=== PATIENT | male | born 1955 ===

== ENCOUNTER 2016-08-25 21:04 | Inpatient (IN) | payer MEDICARE, OTHER ==
[2016-08-25] MEDS ORDERED: Albuterol-Ipratrop 3 mg / 0.5 (3 ml) UD IH STA ×2 (21:35→21:37)
[2016-08-25] MEDS ORDERED: Albuterol-Ipratrop 3 mg / 0.5 (3 ml) UD INH STA (21:35)
--- NOTE | 2016-08-25 21:46 | ED PDOC ---
HPI: SOB/CHF/COPD Time Seen by Provider: 08/25/16 21:28 Chief Complaint (Nursing): Shortness Of Breath Chief Complaint (Provider): Dyspnea History Per: Patient History/Exam Limitations: no limitations Onset/Duration Of Symptoms: Days (3) Current Symptoms Are (Timing): Still Present Additional Complaint(s): 3 days cough, congestion, runny nose, wheezes, dyspnea, chest pain (resolved now ). Yellow phlegm. Tried nebs and antibiotics outpt. which did not help. No leg pain. Had nausea. No abd pain, headaches, dizziness. Has had similar in the past. Past Medical History Reviewed: Nursing Documentation, Vital Signs Vital Signs: Last Vital Signs Temp 102.0 F H 08/25/16 21:22 Pulse 113 H 08/25/16 22:17 Resp 24 08/25/16 22:17 BP 166/79 H 08/25/16 22:17 Pulse Ox 95 08/25/16 22:17 - Medical History PMH: Asthma, COPD, HTN, Hypercholesterolemia, Hypothyroidism, Chronic Kidney Disease, Sleep Apnea, TIA - Family History Family History: States: Unknown Family Hx - Living Arrangements Living Arrangements: With Family - Social History Current smoker - smoking cessation education provided: No Alcohol: None Drugs: Denies - Home Medications Home Medications: Ambulatory Orders Medication Instructions Recorded Albuterol 0.083% [Albuterol 0.083% 3 ml IH BID PRN 06/21/15 Inhal Bonnie (2.5 mg/3 ml) UD] Esomeprazole Magnesium [Nexium] 40 mg PO DAILY 06/21/15 Insulin Aspart, Recombinant 20 unit SQ TID 06/21/15 [Novolog] Ipratropium [Atrovent HFA] 1 puff IH Q4 PRN 06/21/15 ALPRAZolam [Xanax] 0.5 mg PO HS PRN #0 tab 06/22/15 Enalapril Maleate [Vasotec] 20 mg PO Q12 #0 tab 06/22/15 Fluticasone/Salmeterol 250/50 1 puff IH BID #0 puff 06/22/15 [Advair Diskus 250/50] Insulin Detemir [Levemir] 15 units SC Q12 #0 vial 06/22/15 Insulin Lispro [humALOG] 20 units SC TIDAC #0 ml 06/22/15 Levothyroxine [Synthroid] 112 mcg PO DAILY@0630 #0 tab 06/22/15 Montelukast [Singulair] 10 mg PO HS #0 tab 06/22/15 Pantoprazole [Protonix EC Tab] 40 mg PO DAILY #0 ect 06/22/15 Sevelamer [Renagel] 800 mg PO TID #0 tab 06/22/15 Sevelamer Carbonate [Renvela] 800 mg PO TID 05/30/16 Albuterol/Ipratropium [Combivent 1 puff IH Q6 PRN #1 inhaler 06/02/16 Respimat] Linezolid [Zyvox] 600 mg PO Q12 #14 tab 06/02/16 Torsemide [Demadex] 20 mg PO DAILY #0 tab 06/02/16 valACYclovir [Valtrex] 500 mg PO BID #14 tab 06/02/16 - Allergies Allergies/Adverse Reactions: Allergies Allergy/AdvReac Type Severity Reaction Status Date / Time Sulfa (Sulfonamide Allergy ANAPHYLAXIS Verified 06/21/15 08:42 Antibiotics) Review of Systems ROS Statement: Except As Marked, All Systems Reviewed And Found Negative Cardiovascular: Positive for: Chest Pain Respiratory: Positive for: Cough, SOB with Exertion, Sputum Gastrointestinal: Positive for: Nausea Physical Exam - Reviewed Nursing Documentation Reviewed: Yes Vital Signs Reviewed: Yes - Physical Exam Appears: Positive for: Uncomfortable Head Exam: Positive for: ATRAUMATIC Skin: Positive for: Normal Color, Warm, DRY Eye Exam: Positive for: EOMI, Normal appearance, PERRL ENT: Positive for: Nasal Congestion. Negative for: Pharyngeal Erythema, Tonsillar Exudate Neck: Positive for: Normal, Painless ROM, Supple Cardiovascular/Chest: Positive for: Chest Non Tender, Tachycardia (mild ) Respiratory: Positive for: Decreased Breath Sounds, Wheezing Gastrointestinal/Abdominal: Positive for: Normal Exam, Soft. Negative for: Tenderness Back: Positive for: Normal Inspection. Negative for: L CVA Tenderness, R CVA Tenderness Extremity: Positive for: Normal ROM, Pedal Edema (R leg (chronic per pt.)). Negative for: Tenderness, Calf Tenderness Neurologic/Psych: Positive for: Alert, instructional specialist II-XII, Oriented. Negative for: Facial Droop - Laboratory Results Result Diagrams: 08/25/16 22:00 08/25/16 22:00 Interpretation Of Abn Labs: worsening bun/cr Interpretation Of Abnormal: INR elevation compared to old - ECG ECG: Positive for: Interpreted By Me, Viewed By Me ECG Rhythm: Positive for: Sinus Tachycardia (mild) O2 Sat by Pulse Oximetry: 91 Pulse Ox Interpretation: Abnormal - Radiology X-Ray: Interpreted by Me, Viewed By Me X-Ray Interpretation: Infiltrates (LLL) - Progress ED Course And Treament: 1040: Spoke with Dr. Crowder. Will admit ICU. Well known to him. Will put on bipap as sats occasionally going down to 85% off oxygen. 1055: Will give antibiotics for pneumonia. Spoke with Dr. Morrison. Will admit ICU. Disposition - Clinical Impression Clinical Impression: Pneumonia, COPD exacerbation, Severe sepsis - Patient ED Disposition Is Patient to be Admitted: Yes Counseled Patient/Family Regarding: Studies Performed, Diagnosis - Disposition Disposition Time: 22:56 Condition: SERIOUS - Pt Status Changed To: Hospital Disposition Of: Inpatient - Admit Certification Admit to Inpatient:: After my assessment, the patient will require hospitalization for at least two midnights. This is because of the severity of symptoms shown, intensity of services needed, and/or the medical risk in this patient being treated as an outpatient. - POA Present On Arrival: None Core Measure Indicators: Pneumonia
[2016-08-25] MEDS ORDERED: Albuterol-Ipratrop 3 mg / 0.5 (3 ml) UD ONE (22:14)
[2016-08-25 22:16] LABS: BASO % 0.5 % (0.0-2.0); EOS # 0.2 K/uL (0.0-0.7); EOS % 2.5 % (0.0-4.0); HEMATOCRIT 43.3 % (35.0-51.0); LYMPH # 0.8 K/uL (1.0-4.3); LYMPH % 8.1 % (20.0-40.0); MEAN CELL VOLUME 93.1 fl (80.0-94.0); MEAN CORPUSCULAR HEMOGLOBIN 30.4 pg (27.0-31.0); MEAN CORPUSCULAR HGB CONC 32.7 g/dL (33.0-37.0); MONO # 0.5 K/uL (0.0-0.8); MONO % 5.5 % (0.0-10.0); NEUT # 8.1 K/uL (1.8-7.0); NEUT % 83.4 % (50.0-75.0); PLATELET COUNT 240 K/uL (130-400); RED CELL DISTRIBUTION WIDTH 15.2 % (11.5-14.5); WHITE BLOOD COUNT 9.7 K/uL (4.8-10.8)
[2016-08-25] MEDS: Sodium Chloride 0.9% 500 ML IV STA ×2 (22:26→23:32)
[2016-08-25 22:28] LABS: ALB/GLOB RATIO 1.1 (1.0-2.1); BILIRUBIN,TOTAL 0.8 mg/dl (0.2-1.3); CALCIUM 9.4 mg/dL (8.4-10.2); MAGNESIUM 1.7 MG/DL (1.6-2.3); PHOSPHOROUS 3.7 mg/dl (2.5-4.5); POTASSIUM 4.2 MMOL/L (3.6-5.0); TOTAL PROTEIN 7.8 G/DL (6.3-8.2)
[2016-08-25 22:29] LABS: ABG ALLEN TEST YES; ARTERIAL BLOOD GAS HCO3 27.4 mmol/L (21-28); ARTERIAL BLOOD GAS PH 7.36 (7.35-7.45); ARTERIAL BLOOD GAS PO2 90 mm/Hg (80-100)
[2016-08-25 22:34] LABS: PARTIAL THROMBOPLASTIN TIME 44.3 SECONDS (23.3-32.5)
[2016-08-25 22:38] LABS: TROPONIN I 0.023 ng/mL (0.00-0.120)
[2016-08-25 22:51] LABS: EOSINOPHIL 2 % (0-7); NEUTROPHIL 82 % (42-75); TOTAL CELLS COUNTED 100
[2016-08-25] MEDS ORDERED: cefTRIAXone (Rocephin) 1 gm Inj IM ONE (22:52)
[2016-08-25] MEDS ORDERED: cefTRIAXone (Rocephin) 1 gm Inj IV ONE (22:52)
[2016-08-26 06:48] VITALS: BMI 44.0
[2016-08-26] MEDS: Levothyroxine 112 MCG TAB PO SCH (06:58)
[2016-08-26 07:35] LABS: RBC URINE < 1 /hpf (0-3); URINE BILIRUBIN NEGATIVE (NEGATIVE); URINE BLOOD NEGATIVE (NEGATIVE); URINE COLOR STRAW (YELLOW); URINE GLUCOSE (UA) NEG (Normal); URINE KETONE NEGATIVE (NEGATIVE); URINE LEUKOCYTE ESTERASE NEG Leu/uL (Negative); URINE PROTEIN NEGATIVE (NEGATIVE); URINE UROBILINOGEN 0.2-1.0 mg/dL (0.2-1.0); WBC URINE < 1 /hpf (0-5)
[2016-08-26 08:25] LABS: BASO % 0.2 % (0.0-2.0); HEMATOCRIT 43.8 % (35.0-51.0); LYMPH # 0.7 K/uL (1.0-4.3); LYMPH % 7.5 % (20.0-40.0); MEAN CELL VOLUME 93.3 fl (80.0-94.0); MEAN CORPUSCULAR HEMOGLOBIN 31.3 pg (27.0-31.0); MEAN CORPUSCULAR HGB CONC 33.5 g/dL (33.0-37.0); MEAN PLATELET VOLUME 8.3 fl (7.2-11.7); MONO # 0.1 K/uL (0.0-0.8); MONO % 0.6 % (0.0-10.0); NEUT # 8.6 K/uL (1.8-7.0); NEUT % 91.7 % (50.0-75.0); NRBC % 0.1 % (0.0-0.0); PLATELET COUNT 220 K/uL (130-400); RED CELL DISTRIBUTION WIDTH 15.2 % (11.5-14.5); WHITE BLOOD COUNT 9.4 K/uL (4.8-10.8)
[2016-08-26] MEDS: Insulin Lispro (humaLOG) 100 Units/ml Inj SC SCH ×3 (08:32→16:22)
[2016-08-26] MEDS: Pantoprazole 40 mg EC Tab PO SCH (08:36)
[2016-08-26] MEDS ORDERED: Insulin Detemir 100 Units/ml Inj SC SCH (09:00)
[2016-08-26 09:04] LABS: BILIRUBIN,TOTAL 0.8 mg/dl (0.2-1.3)
[2016-08-26 09:21] LABS: T4 8.33 ug/dl (5.5-11.0)
[2016-08-26 09:34] LABS: THYROID STIMULATING HORMONE 0.86 mIU/ML (0.46-4.68)
[2016-08-26] MEDS: Albuterol-Ipratrop 3 mg / 0.5 (3 ml) UD INH SCH ×4 (10:00→19:32)
--- NOTE | 2016-08-26 10:02 | RAD ---
HISTORY: Sepsis Patient COMPARISON: 06/21/2015 FINDINGS: LUNGS: No active pulmonary disease. PLEURA: No significant pleural effusion identified, no pneumothorax apparent. CARDIOVASCULAR: Mild cardiomegaly OSSEOUS STRUCTURES: No significant abnormalities. VISUALIZED UPPER ABDOMEN: Normal. OTHER FINDINGS: None. IMPRESSION: No active disease.
[2016-08-26 10:35] LABS: NEUTROPHIL 92 % (42-75); REACTIVE LYMPHOCYTES 1 % (0-0); TOTAL CELLS COUNTED 100
[2016-08-26 10:37] LABS: GIANT PLATELETS PRESENT
[2016-08-26] MEDS ORDERED: methylPREDNISolone 60 MG in Sodium Chloride 0.9% 50 ML IVPB SCH (11:15)
[2016-08-26] MEDS ORDERED: Sodium Chloride 3% for Inhalation 4 ML VIAL.NEB IH PRN (11:15)
--- NOTE | 2016-08-26 12:27 | CARD ---
APPROVED REPORT EKG Measurement Heart [id number] <Conclusion> Sinus tachycardia Nonspecific ST abnormality Abnormal ECG
[2016-08-26] MEDS: Azithromycin 500 MG in Sodium Chloride 0.9% 250 ML IVPB SCH ×3 (13:07→15:00)
[2016-08-26] MEDS ORDERED: Insulin Lispro (humaLOG) 100 Units/ml Inj SC SCH (13:30)
--- NOTE | 2016-08-26 14:26 | CP.PCM.HP ---
History of Present Illness - History of Present Illness History of Present Illness: CC: SOB. 61 y/o M, came to ER [facility] to be evaluated for SOB x 3 days [employer], Pt using abx x 2 days and nebulizer Tx at home with no relief. SOB associated to productive cough with thick yellowish sputum, wheezes, congested nose. Worsening symptom: Fever ( in ER 102.0), chills, MARIANO, Nausea, morbid obesity BMI 44.0 Aggravated factor: Chest tightness with deep breathing, intermittent cough. Pt denied: Throat pain, bloody cough, abdominal pain, CP, vomiting, diarrhea, urinary symptoms, dizziness, numbness, syncope, blurred vision, sick contact, recent travel. PMHx: COPD, Asthma, ARTUR, CKD, HTN, DMII, Hypothyroidism, High Cholesterol, Anxiety, Hx TIA. CXR shows: No active disease EKG shows: Sinus Tachycardia. Present on Admission - Present on Admission Any Indicators Present on Admission: Yes Review of Systems - Constitutional Constitutional: Chills, Fever, Sleep Apnea, Other (Overweight) - EENT Eyes: Other (negative) Ears: Other (negative) Nose/Mouth/Throat: Other (negative) - Cardiovascular Cardiovascular: Rapid Heart Rate - Respiratory Respiratory: Cough, Dyspnea, Dyspnea on Exertion, Wheezing, Change in Mucous Color, Pain with Coughing - Gastrointestinal Gastrointestinal: Other (negative) - Genitourinary Genitourinary: Other (negative) - Musculoskeletal Musculoskeletal: Other (negative) - Integumentary Integumentary: Other (negative) - Neurological Neurological: Other (negative) - Psychiatric Psychiatric: Anxiety - Endocrine Endocrine: Other (morbid obesity) Past Patient History - Infectious Disease Hx of Infectious Diseases: None - Past Medical History & Family History Past Medical History?: Yes Pertinent Family History: Unknown. - Past Social History Smoking Status: Unknown If Ever Smoked Alcohol: None Drugs: Denies Home Situation {Lives}: With Family - CARDIAC Hx Cardiac Disorders: Yes Hx Hypercholesterolemia: Yes Hx Hypertension: Yes - PULMONARY Hx Respiratory Disorders: Yes Hx Asthma: Yes Hx Chronic Obstructive Pulmonary Disease (COPD): Yes - NEUROLOGICAL Hx Neurological Disorder: Yes (TIA) - HEENT Hx HEENT Problems: No - RENAL Hx Chronic Kidney Disease: Yes - ENDOCRINE/METABOLIC Hx Endocrine Disorders: Yes Hx Diabetes Mellitus Type 2: Yes Hx Hypothyroidism: Yes - HEMATOLOGICAL/ONCOLOGICAL Hx Blood Disorders: No Hx AIDS: No Hx Human Immunodeficiency Virus (HIV): No - INTEGUMENTARY Hx Dermatological Problems: No - MUSCULOSKELETAL/RHEUMATOLOGICAL Hx Musculoskeletal Disorders: Yes Hx Falls: Yes - GASTROINTESTINAL Hx Gastrointestinal Disorders: No - GENITOURINARY/GYNECOLOGICAL Hx Genitourinary Disorders: No - PSYCHIATRIC Hx Psychophysiologic Disorder: Yes Hx Anxiety: Yes Hx Substance Use: No - SURGICAL HISTORY Hx Surgeries: Yes Hx Cataract Extraction: Yes Hx Herniorrhaphy: Yes (inguinal) - ANESTHESIA Hx Anesthesia: Yes Hx Anesthesia Reactions: No Hx Malignant Hyperthermia: No Meds Allergies/Adverse Reactions: Allergies Allergy/AdvReac Type Severity Reaction Status Date / Time Sulfa (Sulfonamide Allergy ANAPHYLAXIS Verified 06/21/15 08:42 Antibiotics) Physical Exam - Constitutional Appears: No Acute Distress - Head Exam Head Exam: NORMAL INSPECTION - Eye Exam Eye Exam: PERRL - ENT Exam ENT Exam: Mucous Membranes Moist - Neck Exam Neck exam: Positive for: Normal Inspection - Respiratory Exam Respiratory Exam: Decreased Breath Sounds (at bases), Wheezes - Cardiovascular Exam Cardiovascular Exam: REGULAR RHYTHM - GI/Abdominal Exam GI & Abdominal Exam: Normal Bowel Sounds, Soft - Extremities Exam Extremities exam: Positive for: pedal edema (trace) Additional comments: Hands edema - Back Exam Back exam: NORMAL INSPECTION - Neurological Exam Neurological exam: Alert, Oriented x3 Additional comments: No gross focal motor sensory deficit - Psychiatric Exam Psychiatric exam: Anxious - Skin Skin Exam: Warm Results - Vital Signs Recent Vital Signs: Last Vital Signs Temp 97.9 F 08/26/16 08:00 Pulse 103 H 08/26/16 11:57 Resp 20 08/26/16 08:00 BP 157/81 H 08/26/16 08:00 Pulse Ox 96 08/26/16 08:00 reviewed Gerald - Labs Result Diagrams: 08/26/16 07:50 08/28/16 14:22 Labs: Laboratory Results - last 24 hr 08/26/16 08/26/16 08/26/16 05:09 07:50 11:39 WBC 9.4 RBC 4.70 Hgb 14.7 Hct 43.8 MCV 93.3 MCH 31.3 H MCHC 33.5 RDW 15.2 H Plt Count 220 MPV 8.3 Neut % (Auto) 91.7 H Lymph % (Auto) 7.5 L [place] % (Auto) 0.6 Eos % (Auto) 0.0 Baso % (Auto) 0.2 Neut # 8.6 H Lymph # 0.7 L [place] # 0.1 Eos # 0.0 Baso # 0.0 Neutrophils % (Manual) 92 H Lymphocytes % (Manual) 6 L Reactive Lymphs % 1 H Monocytes % (Manual) 1 Platelet Estimate Normal Giant Platelets Present Anisocytosis (manual) Slight Sodium 138 Potassium 5.0 Chloride 101 Carbon Dioxide 22 Anion Gap 20 BUN 41 H Creatinine 3.1 H Est GFR ( Amer) 25 Est GFR (Non-Af Amer) 21 POC Glucose (mg/dL) 255 H 347 H Random Glucose 315 H Calcium 9.0 Total Bilirubin 0.8 AST 52 ALT 38 Alkaline Phosphatase 58 Total Protein 8.0 Albumin 4.1 Globulin 3.9 Albumin/Globulin Ratio 1.0 Triglycerides 101 D Cholesterol 159 LDL Cholesterol Direct 81 HDL Cholesterol 46 Thyroxine (T4) 8.33 Total T3 0.559 L TSH 3rd Generation 0.86 reviewed J.P. - EKG Data EKG comments: reviewed J.P. - Imaging and Cardiology Chest x-ray Status: Report reviewed by me (J.P.) Assessment & Plan (1) COPD exacerbation Status: Acute (2) ARTUR (obstructive sleep apnea) Status: Chronic Priority: High (3) Diabetes mellitus Status: Chronic Priority: High Comment: Hyperglycemia. (4) Hypertension Status: Chronic Priority: Medium (5) Hypothyroidism Status: Chronic Priority: Medium (6) Anxiety Status: Chronic Priority: Medium - Assessment and Plan (Free Text) Plan: Rocephin, Zithromax, Duoneb, Solumedrol and rest of Tx. F/U Blood C-S, U C-S. - Date & Time Date: 08/26/16 Time: 11:30
[2016-08-26] MEDS: Insulin Detemir 100 Units/ml Inj SC SCH (21:45)
[2016-08-27] MEDS: Levothyroxine 112 MCG TAB PO SCH (06:17)
[2016-08-27] MEDS: Insulin Lispro (humaLOG) 100 Units/ml Inj SC SCH ×3 (08:06→16:21)
[2016-08-27] MEDS: Insulin Detemir 100 Units/ml Inj SC SCH ×2 (08:07→21:13)
[2016-08-27] MEDS: Pantoprazole 40 mg EC Tab PO SCH (08:09)
[2016-08-27] MEDS: Azithromycin 500 MG in Sodium Chloride 0.9% 250 ML IVPB SCH (08:13)
[2016-08-27] MEDS: Albuterol-Ipratrop 3 mg / 0.5 (3 ml) UD INH SCH ×4 (08:32→19:25)
[2016-08-27] MEDS: methylPREDNISolone 20 MG in Sodium Chloride 0.9% 50 ML IVPB SCH ×2 (09:46→16:18)
--- NOTE | 2016-08-27 14:28 | PQF GENQUE ---
Dr. Crowder, Sepsis ruled in or Sepsis ruled out? diagnosis is dropped Admission to Inpatient: Admitting Diagnosis: Severe Sepsis, COPD Exacerbation, Pneumonia ER record: V/S: Temp: 102.0 Pulse:113 Resp: 24 ECG Rhythm: Sinus Tachycardia (mild) 10:40 Will put on bipap as sats occasionally going down to 85% off O2. Speaking in full sentences. Clinical Impression: Pneumonia, COPD exacerbation, Severe sepsis H and P: SOB associated to productive cough with thick yellowish sputum, wheezes , congested nose. Worsening symptom: Fever ( in ER 102.0), chills, MARIANO, Nausea, morbid obesity BMI 44.0 (1) COPD exacerbation Status: Acute (2) ARTUR (obstructive sleep apnea) Status: Chronic Priority: High (3) Diabetes mellitus Status: Chronic Priority: High Comment: Hyperglycemia. (4) Hypertension Status: Chronic Priority: Medium (5) Hypothyroidism Status: Chronic Priority: Medium (6) Anxiety Status: Chronic Priority: Medium CXR:negative WBC:9.7->9.4 ABG lactate:0.8 This form is a permanent part of the medical record Clarification of your documentation is requested to better reflect the severity of illness and intensity of treatment of your patient. Indicators present [] Specify: [] [] Specify: [] [] Specify: [] [] Specify: [] Location in the medical record that reflects the above clinical findings: [] Treatment Provided: [] PHYSICIAN'S RESPONSE Based on your medical judgment of the clinical indicators outlined above please clarify the following: [] Practitioner response [] If unable to determine, please check the box, sign and date. Present On Admission (POA) Indicator: [] Present at the time of admission [] Not present at the time of admission [] Clinically Undetermined In responding to this query, please exercise your independent professional judgment. The fact that a question is asked does not imply that any particular answer is desired or expected. Thank you for your clarification on this documentation. If you have any questions please call. * Thank you, Jessi Delgadillo RN BSN ext. #[phone] MTDD
--- NOTE | 2016-08-27 14:36 | CP.PCM.PN ---
Subjective - Date & Time of Evaluation Date of Evaluation: 08/27/16 Time of Evaluation: 11:20 - Subjective Subjective: F/U COPD Exacerbation Cough, chest congestion improved.. Objective - Vital Signs/Intake and Output Vital Signs (last 24 hours): Temp Pulse Resp BP Pulse Ox 98.8 F 101 H 18 166/77 H 99 08/27/16 12:12 08/27/16 12:12 08/27/16 12:12 08/27/16 12:12 08/27/16 12:12 - Medications Medications: Current Medications Albuterol/Ipratropium (Duoneb 3 Mg/0.5 Mg (3 Ml) Ud) 3 ml INH RQID [facility] Last Admin: 08/27/16 11:17 Dose: 3 ml Alprazolam (Xanax) 0.5 mg PO HS PRN PRN Reason: Insomnia Stop: 09/02/16 06:14 Enalapril Maleate (Vasotec) 20 mg PO Q12 [facility] Last Admin: 08/27/16 08:10 Dose: 20 mg Furosemide (Lasix) 40 mg IV DAILY [facility] Last Admin: 08/27/16 08:10 Dose: 40 mg Ceftriaxone Sodium 1 gm/ (Sodium Chloride) 100 mls @ 100 mls/hr IVPB DAILY [facility] Last Admin: 08/27/16 08:12 Dose: 100 mls/hr Azithromycin 500 mg/ Sodium (Chloride) 250 mls @ 250 mls/hr IVPB DAILY [facility] Last Admin: 08/27/16 08:13 Dose: 250 mls/hr Methylprednisolone 20 mg/ (Sodium Chloride) 50.32 mls @ 100 mls/hr IVPB Q8 [facility] Last Admin: 08/27/16 09:46 Dose: 100 mls/hr Insulin Detemir (Levemir) 18 units SC Q12 [facility] Last Admin: 08/27/16 08:07 Dose: 18 units Insulin Human Lispro (Humalog) 28 units SC TIDAC [facility] Levothyroxine Sodium (Synthroid) 112 mcg PO DAILY@0630 [facility] Last Admin: 08/27/16 06:17 Dose: 112 mcg Montelukast Sodium (Singulair) 10 mg PO HS [facility] Last Admin: 08/26/16 21:48 Dose: 10 mg Pantoprazole Sodium (Protonix Ec Tab) 40 mg PO DAILY [facility] Last Admin: 08/27/16 08:09 Dose: 40 mg Sevelamer HCl (Renagel) 800 mg PO TID [facility] Last Admin: 08/27/16 12:31 Dose: 800 mg Torsemide (Demadex) 20 mg PO DAILY [facility] Last Admin: 08/27/16 08:10 Dose: 20 mg - Labs Labs: 08/26/16 07:50 08/26/16 07:50 PT 22.1 SECONDS (9.6-11.2) H 08/25/16 22:00 INR 2.13 (0.92-1.08) H 08/25/16 22:00 APTT 44.3 SECONDS (23.3-32.5) H 08/25/16 22:00 - Constitutional Appears: No Acute Distress - Head Exam Head Exam: NORMAL INSPECTION - Eye Exam Eye Exam: PERRL - ENT Exam ENT Exam: Normal Oropharynx - Neck Exam Neck Exam: Normal Inspection - Respiratory Exam Respiratory Exam: Decreased Breath Sounds (at bases), Wheezes - Cardiovascular Exam Cardiovascular Exam: REGULAR RHYTHM - GI/Abdominal Exam GI & Abdominal Exam: Soft, Normal Bowel Sounds - Extremities Exam Extremities Exam: Pedal Edema (trace) Additional comments: Hands edema - Back Exam Back Exam: NORMAL INSPECTION - Neurological Exam Neurological Exam: Alert, Oriented x3 Additional comments: No gross focal motor sensory deficit. - Psychiatric Exam Psychiatric exam: Anxious - Skin Skin Exam: Warm Assessment and Plan (1) COPD exacerbation Status: Acute (2) ARTUR (obstructive sleep apnea) Status: Chronic (3) Diabetes mellitus Status: Chronic (4) Hypertension Status: Chronic (5) Hypothyroidism Status: Chronic (6) Anxiety Status: Chronic - Assessment and Plan (Free Text) Plan: BS and BP elevated, increase Novolog, Levemir, Vasotec.
[2016-08-28] MEDS: methylPREDNISolone 20 MG in Sodium Chloride 0.9% 50 ML IVPB SCH ×4 (00:58→17:47)
[2016-08-28] MEDS: Levothyroxine 112 MCG TAB PO SCH (06:07)
[2016-08-28] MEDS: Albuterol-Ipratrop 3 mg / 0.5 (3 ml) UD INH SCH ×4 (08:13→19:55)
[2016-08-28] MEDS: Insulin Lispro (humaLOG) 100 Units/ml Inj SC SCH ×3 (08:51→17:45)
[2016-08-28] MEDS: Insulin Detemir 100 Units/ml Inj SC SCH ×2 (08:52→21:24)
[2016-08-28] MEDS: Pantoprazole 40 mg EC Tab PO SCH (08:59)
[2016-08-28] MEDS: Azithromycin 500 MG in Sodium Chloride 0.9% 250 ML IVPB SCH (10:08)
--- NOTE | 2016-08-28 14:30 | CP.PCM.PN ---
Subjective - Date & Time of Evaluation Date of Evaluation: 08/28/16 Time of Evaluation: 12:10 - Subjective Subjective: F/U COPD Exacerbation. Pt still having cough, less chest congestion Objective - Vital Signs/Intake and Output Vital Signs (last 24 hours): Temp Pulse Resp BP Pulse Ox 97.5 F L 98 H 20 157/78 H 95 08/28/16 12:13 08/28/16 12:13 08/28/16 12:13 08/28/16 12:13 08/28/16 12:13 - Medications Medications: Current Medications Albuterol/Ipratropium (Duoneb 3 Mg/0.5 Mg (3 Ml) Ud) 3 ml INH RQID [facility] Last Admin: 08/28/16 11:25 Dose: 3 ml Alprazolam (Xanax) 0.5 mg PO HS PRN PRN Reason: Insomnia Stop: 09/02/16 06:14 Last Admin: 08/28/16 00:56 Dose: 0.5 mg Enalapril Maleate (Vasotec) 20 mg PO Q12 [facility] Last Admin: 08/28/16 09:00 Dose: 20 mg Furosemide (Lasix) 40 mg IV DAILY [facility] Last Admin: 08/28/16 08:55 Dose: 40 mg Ceftriaxone Sodium 1 gm/ (Sodium Chloride) 100 mls @ 100 mls/hr IVPB DAILY [facility] Last Admin: 08/28/16 09:05 Dose: 100 mls/hr Azithromycin 500 mg/ Sodium (Chloride) 250 mls @ 250 mls/hr IVPB DAILY [facility] Last Admin: 08/28/16 10:08 Dose: 250 mls/hr Methylprednisolone 20 mg/ (Sodium Chloride) 50.32 mls @ 100 mls/hr IVPB Q8 [facility] Last Admin: 08/28/16 09:00 Dose: Not Given Insulin Detemir (Levemir) 18 units SC Q12 [facility] Last Admin: 08/28/16 08:52 Dose: 18 units Insulin Human Lispro (Humalog) 28 units SC TIDAC [facility] Last Admin: 08/28/16 12:08 Dose: 28 units Levothyroxine Sodium (Synthroid) 112 mcg PO DAILY@0630 [facility] Last Admin: 08/28/16 06:07 Dose: 112 mcg Montelukast Sodium (Singulair) 10 mg PO HS [facility] Last Admin: 08/27/16 21:08 Dose: 10 mg Pantoprazole Sodium (Protonix Ec Tab) 40 mg PO DAILY [facility] Last Admin: 08/28/16 08:59 Dose: 40 mg Sevelamer HCl (Renagel) 800 mg PO TID [facility] Last Admin: 08/28/16 09:00 Dose: 800 mg Torsemide (Demadex) 20 mg PO DAILY [facility] Last Admin: 08/28/16 08:50 Dose: 20 mg - Labs Labs: 08/26/16 07:50 08/26/16 07:50 PT 22.1 SECONDS (9.6-11.2) H 08/25/16 22:00 INR 2.13 (0.92-1.08) H 08/25/16 22:00 APTT 44.3 SECONDS (23.3-32.5) H 08/25/16 22:00 - Constitutional Appears: No Acute Distress - Head Exam Head Exam: NORMAL INSPECTION - Eye Exam Eye Exam: PERRL - ENT Exam ENT Exam: Normal Oropharynx - Neck Exam Neck Exam: Normal Inspection - Respiratory Exam Respiratory Exam: Decreased Breath Sounds (at bases), Rhonchi (scattered) - Cardiovascular Exam Cardiovascular Exam: REGULAR RHYTHM - GI/Abdominal Exam GI & Abdominal Exam: Soft, Normal Bowel Sounds - Extremities Exam Extremities Exam: Pedal Edema (trace) Additional comments: less hands edema. - Back Exam Back Exam: NORMAL INSPECTION - Neurological Exam Neurological Exam: Alert, Oriented x3 Additional comments: No gross focal motor sensory deficit. - Psychiatric Exam Psychiatric exam: Anxious - Skin Skin Exam: Warm Assessment and Plan (1) COPD exacerbation Status: Acute (2) ARTUR (obstructive sleep apnea) Status: Chronic (3) Diabetes mellitus Status: Chronic (4) Hypertension Status: Chronic (5) Hypothyroidism Status: Chronic (6) Anxiety Status: Chronic - Assessment and Plan (Free Text) Plan: BS elevated 2nd to Steroids, Pt refused previous doses, discussed with him to continue Solumedrol and rest of Tx.
[2016-08-28 14:52] LABS: CALCIUM 8.6 mg/dL (8.4-10.2); POTASSIUM 4.4 MMOL/L (3.6-5.0)
[2016-08-28 14:53] LABS: ALB/GLOB RATIO 1.1 (1.0-2.1); BILIRUBIN,TOTAL 0.3 mg/dl (0.2-1.3)
[2016-08-29] MEDS: methylPREDNISolone 20 MG in Sodium Chloride 0.9% 50 ML IVPB SCH ×3 (00:25→17:01)
[2016-08-29] MEDS: Levothyroxine 112 MCG TAB PO SCH (06:01)
[2016-08-29] MEDS: Albuterol-Ipratrop 3 mg / 0.5 (3 ml) UD INH SCH ×4 (08:00→19:29)
[2016-08-29] MEDS: Insulin Lispro (humaLOG) 100 Units/ml Inj SC SCH ×3 (08:25→16:59)
[2016-08-29] MEDS: Insulin Detemir 100 Units/ml Inj SC SCH ×2 (08:29→21:02)
[2016-08-29] MEDS: Pantoprazole 40 mg EC Tab PO SCH (08:31)
[2016-08-29] MEDS: Azithromycin 500 MG in Sodium Chloride 0.9% 250 ML IVPB SCH (10:12)
--- NOTE | 2016-08-29 14:28 | CP.PCM.PN ---
Subjective - Date & Time of Evaluation Date of Evaluation: 08/29/16 Time of Evaluation: 13:00 - Subjective Subjective: F/U COPD Exacerbation Cough , chest congestion Objective - Vital Signs/Intake and Output Vital Signs (last 24 hours): Temp Pulse Resp BP Pulse Ox 98.4 F 96 H 20 159/83 H 95 08/29/16 12:24 08/29/16 12:24 08/29/16 12:24 08/29/16 12:24 08/29/16 12:24 - Medications Medications: Current Medications Albuterol/Ipratropium (Duoneb 3 Mg/0.5 Mg (3 Ml) Ud) 3 ml INH RQID [facility] Last Admin: 08/29/16 11:33 Dose: 3 ml Clonidine HCl (Catapres) 0.1 mg PO DAILY [facility] Enalapril Maleate (Vasotec) 20 mg PO Q12 [facility] Last Admin: 08/29/16 08:32 Dose: 20 mg Furosemide (Lasix) 40 mg IV DAILY [facility] Last Admin: 08/29/16 08:26 Dose: 40 mg Ceftriaxone Sodium 1 gm/ (Sodium Chloride) 100 mls @ 100 mls/hr IVPB DAILY [facility] Last Admin: 08/29/16 08:19 Dose: 100 mls/hr Azithromycin 500 mg/ Sodium (Chloride) 250 mls @ 250 mls/hr IVPB DAILY [facility] Last Admin: 08/29/16 10:12 Dose: 250 mls/hr Methylprednisolone 20 mg/ (Sodium Chloride) 50.32 mls @ 100 mls/hr IVPB Q8 [facility] Last Admin: 08/29/16 09:38 Dose: 100 mls/hr Insulin Detemir (Levemir) 18 units SC Q12 [facility] Last Admin: 08/29/16 08:29 Dose: 18 units Insulin Human Lispro (Humalog) 28 units SC TIDAC [facility] Last Admin: 08/29/16 12:47 Dose: 28 units Levothyroxine Sodium (Synthroid) 112 mcg PO DAILY@0630 [facility] Last Admin: 08/29/16 06:01 Dose: 112 mcg Montelukast Sodium (Singulair) 10 mg PO HS [facility] Last Admin: 08/28/16 21:23 Dose: 10 mg Pantoprazole Sodium (Protonix Ec Tab) 40 mg PO DAILY [facility] Last Admin: 08/29/16 08:31 Dose: 40 mg Sevelamer HCl (Renagel) 800 mg PO TID [facility] Last Admin: 08/29/16 12:49 Dose: 800 mg Torsemide (Demadex) 20 mg PO DAILY [facility] Last Admin: 08/29/16 08:23 Dose: 20 mg - Labs Labs: 08/26/16 07:50 08/28/16 14:22 PT 22.1 SECONDS (9.6-11.2) H 08/25/16 22:00 INR 2.13 (0.92-1.08) H 08/25/16 22:00 APTT 44.3 SECONDS (23.3-32.5) H 08/25/16 22:00 - Constitutional Appears: No Acute Distress - Head Exam Head Exam: NORMAL INSPECTION - Eye Exam Eye Exam: PERRL - ENT Exam ENT Exam: Normal Oropharynx - Neck Exam Neck Exam: Normal Inspection - Respiratory Exam Respiratory Exam: Decreased Breath Sounds (at bases), Rhonchi - Cardiovascular Exam Cardiovascular Exam: REGULAR RHYTHM - GI/Abdominal Exam GI & Abdominal Exam: Soft, Normal Bowel Sounds - Extremities Exam Extremities Exam: Pedal Edema (trace) - Back Exam Back Exam: NORMAL INSPECTION - Neurological Exam Neurological Exam: Alert, Oriented x3 Additional comments: No gross focal motor sensory deficit. - Psychiatric Exam Psychiatric exam: Anxious - Skin Skin Exam: Warm Assessment and Plan (1) COPD exacerbation Status: Acute (2) ARTUR (obstructive sleep apnea) Status: Chronic (3) Diabetes mellitus Status: Chronic (4) Hypertension Status: Chronic (5) Hypothyroidism Status: Chronic (6) Anxiety Status: Chronic - Assessment and Plan (Free Text) Plan: BS elevated 2nd to steroids , still bronchospasm, continue steroids and rest of treatment, monitir bood sugar.
[2016-08-29] MEDS ORDERED: Insulin Regular 100 units/ml SC STA (22:39)
[2016-08-30] MEDS: methylPREDNISolone 20 MG in Sodium Chloride 0.9% 50 ML IVPB SCH ×3 (00:18→09:07)
[2016-08-30] MEDS: Levothyroxine 112 MCG TAB PO SCH (06:18)
[2016-08-30] MEDS: Albuterol-Ipratrop 3 mg / 0.5 (3 ml) UD INH SCH ×2 (07:42→11:01)
[2016-08-30] MEDS: Insulin Lispro (humaLOG) 100 Units/ml Inj SC SCH ×2 (07:54→11:30)
[2016-08-30] MEDS: Pantoprazole 40 mg EC Tab PO SCH (08:59)
[2016-08-30] MEDS ORDERED: Insulin Detemir 100 Units/ml Inj SC SCH (09:00)
[2016-08-30] MEDS: Azithromycin 500 MG in Sodium Chloride 0.9% 250 ML IVPB SCH (09:07)
--- NOTE | 2016-08-30 13:41 | CP.PCM.PCO ---
Assessment and Plan - Assessment and Plan (Free Text) Plan: Patient seen and examined. Vital signs stable Discharged home, pt to follow up with Dr. Crowder for follow up sleep studies for bpap machine. Patient refusing home steroid taper. Will follow up with Dr Crowder outpatient.
[2016-08-30 14:34] VITALS: BP 147/73; PULSE 94; RESP 20; TEMP 98.2; O2SAT 93
--- NOTE | 2016-08-30 14:43 | CP.PCM.PN ---
Subjective - Date & Time of Evaluation Date of Evaluation: 08/30/16 Time of Evaluation: 11:30 - Subjective Subjective: F/U COPD Exacerbation. Pt breathing well, no SOB, no cough, BS 84. Objective - Vital Signs/Intake and Output Vital Signs (last 24 hours): Temp Pulse Resp BP Pulse Ox 98.2 F 94 H 20 147/73 93 L 08/30/16 13:00 08/30/16 13:00 08/30/16 13:00 08/30/16 13:00 08/30/16 13:00 - Medications Medications: Current Medications Albuterol/Ipratropium (Duoneb 3 Mg/0.5 Mg (3 Ml) Ud) 3 ml INH RQID [facility] Last Admin: 08/30/16 11:01 Dose: 3 ml Clonidine HCl (Catapres) 0.1 mg PO DAILY [facility] Last Admin: 08/30/16 09:01 Dose: 0.1 mg Enalapril Maleate (Vasotec) 20 mg PO Q12 [facility] Last Admin: 08/30/16 08:59 Dose: 20 mg Furosemide (Lasix) 40 mg IV DAILY [facility] Last Admin: 08/30/16 09:00 Dose: 40 mg Ceftriaxone Sodium 1 gm/ (Sodium Chloride) 100 mls @ 100 mls/hr IVPB DAILY [facility] Last Admin: 08/30/16 09:12 Dose: 100 mls/hr Azithromycin 500 mg/ Sodium (Chloride) 250 mls @ 250 mls/hr IVPB DAILY [facility] Last Admin: 08/30/16 09:07 Dose: 250 mls/hr Methylprednisolone 20 mg/ (Sodium Chloride) 50.32 mls @ 100 mls/hr IVPB Q8 [facility] Last Admin: 08/30/16 09:07 Dose: Not Given Insulin Detemir (Levemir) 22 units SC Q12 [facility] Last Admin: 08/30/16 08:59 Dose: 22 units Insulin Human Lispro (Humalog) 28 units SC TIDAC [facility] Last Admin: 08/30/16 11:30 Dose: Not Given Levothyroxine Sodium (Synthroid) 112 mcg PO DAILY@0630 [facility] Last Admin: 08/30/16 06:18 Dose: 112 mcg Montelukast Sodium (Singulair) 10 mg PO HS [facility] Last Admin: 08/29/16 21:01 Dose: 10 mg Pantoprazole Sodium (Protonix Ec Tab) 40 mg PO DAILY [facility] Last Admin: 08/30/16 08:59 Dose: 40 mg Sevelamer HCl (Renagel) 800 mg PO TID [facility] Last Admin: 08/30/16 14:42 Dose: 800 mg Torsemide (Demadex) 20 mg PO DAILY [facility] Last Admin: 08/30/16 09:01 Dose: 20 mg - Labs Labs: 08/26/16 07:50 08/28/16 14:22 PT 22.1 SECONDS (9.6-11.2) H 08/25/16 22:00 INR 2.13 (0.92-1.08) H 08/25/16 22:00 APTT 44.3 SECONDS (23.3-32.5) H 08/25/16 22:00 - Constitutional Appears: No Acute Distress - Head Exam Head Exam: NORMAL INSPECTION - Eye Exam Eye Exam: PERRL - ENT Exam ENT Exam: Normal Oropharynx - Neck Exam Neck Exam: Normal Inspection - Respiratory Exam Respiratory Exam: Decreased Breath Sounds (at bases), Rhonchi (scattered) - Cardiovascular Exam Cardiovascular Exam: REGULAR RHYTHM - GI/Abdominal Exam GI & Abdominal Exam: Soft, Normal Bowel Sounds - Extremities Exam Extremities Exam: Pedal Edema (trace) - Back Exam Back Exam: NORMAL INSPECTION - Neurological Exam Neurological Exam: Alert, Oriented x3 Additional comments: No gross focal motor sensory deficit. - Psychiatric Exam Psychiatric exam: Anxious - Skin Skin Exam: Warm Assessment and Plan (1) COPD exacerbation Assessment & Plan: Improved Status: Acute (2) ARTUR (obstructive sleep apnea) Status: Chronic (3) Diabetes mellitus Assessment & Plan: Improved. Status: Chronic (4) Hypertension Status: Chronic (5) Hypothyroidism Status: Chronic (6) Anxiety Status: Chronic - Assessment and Plan (Free Text) Plan: Pt doesn't want f/u Steroid po, continue with home medication, monitor BS. Improved and stable to be discharged, see instruction medication list, f/u with PMD in a week.
--- NOTE | 2016-09-09 10:24 | CP.PCM.DIS ---
Provider - Provider Date of Admission: 08/25/16 22:58 Attending physician: Shakir Roche MD Time Spent in preparation of Discharge (in minutes): 25 Diagnosis - Discharge Diagnosis (1) Diabetes mellitus Status: Chronic Priority: High (2) Hypothyroidism Status: Chronic Priority: Medium (3) Hypertension Status: Chronic Priority: Medium (4) ARTUR (obstructive sleep apnea) Status: Chronic Priority: High (5) Anxiety Status: Chronic Priority: Medium (6) COPD exacerbation Status: Acute Hospital Course - Lab Results Lab Results: Micro Results 08/27/16 12:45 Sputum Gram Stain - Final 08/27/16 12:45 Sputum Sputum Culture - Final NORMAL SAPROPHYTIC CONSTANZA Most Recent Lab Values WBC 9.4 K/uL (4.8-10.8) 08/26/16 07:50 RBC 4.70 Mil/uL (4.40-5.90) 08/26/16 07:50 Hgb 14.7 g/dL (12.0-18.0) 08/26/16 07:50 Hct 43.8 % (35.0-51.0) 08/26/16 07:50 MCV 93.3 fl (80.0-94.0) 08/26/16 07:50 MCH 31.3 pg (27.0-31.0) H 08/26/16 07:50 MCHC 33.5 g/dL (33.0-37.0) 08/26/16 07:50 RDW 15.2 % (11.5-14.5) H 08/26/16 07:50 Plt Count 220 K/uL (130-400) 08/26/16 07:50 MPV 8.3 fl (7.2-11.7) 08/26/16 07:50 Neut % (Auto) 91.7 % (50.0-75.0) H 08/26/16 07:50 Lymph % (Auto) 7.5 % (20.0-40.0) L 08/26/16 07:50 [place] % (Auto) 0.6 % (0.0-10.0) 08/26/16 07:50 Eos % (Auto) 0.0 % (0.0-4.0) 08/26/16 07:50 Baso % (Auto) 0.2 % (0.0-2.0) 08/26/16 07:50 Neut # 8.6 K/uL (1.8-7.0) H 08/26/16 07:50 Lymph # 0.7 K/uL (1.0-4.3) L 08/26/16 07:50 [place] # 0.1 K/uL (0.0-0.8) 08/26/16 07:50 Eos # 0.0 K/uL (0.0-0.7) 08/26/16 07:50 Baso # 0.0 K/uL (0.0-0.2) 08/26/16 07:50 Neutrophils % (Manual) 92 % (42-75) H 08/26/16 07:50 Band Neutrophils % 2 % (0-2) 08/25/16 22:00 Lymphocytes % (Manual) 6 % (20-50) L 08/26/16 07:50 Reactive Lymphs % 1 % (0-0) H 08/26/16 07:50 Monocytes % (Manual) 1 % (0-10) 08/26/16 07:50 Eosinophils % (Manual) 2 % (0-7) 08/25/16 22:00 Platelet Estimate Normal (NORMAL) 08/26/16 07:50 Giant Platelets Present 08/26/16 07:50 Anisocytosis (manual) Slight 08/26/16 07:50 Macrocytosis (manual) Slight 08/25/16 22:00 PT 22.1 SECONDS (9.6-11.2) H 08/25/16 22:00 INR 2.13 (0.92-1.08) H 08/25/16 22:00 APTT 44.3 SECONDS (23.3-32.5) H 08/25/16 22:00 pCO2 53 mm/Hg (35-45) H 08/25/16 22:20 pO2 90 mm/Hg (80-100) 08/25/16 22:20 HCO3 27.4 mmol/L (21-28) 08/25/16 22:20 ABG pH 7.36 (7.35-7.45) 08/25/16 22:20 ABG Total CO2 31.5 mmol/L (22-28) H 08/25/16 22:20 ABG O2 Saturation 99.5 % (95-98) H 08/25/16 22:20 ABG Base Excess 3.2 mmol/L (-2.0-3.0) H 08/25/16 22:20 Ian Test Yes 08/25/16 22:20 ABG Potassium 4.3 mmol/L (3.6-5.2) 08/25/16 22:20 A-a O2 Difference 557.0 mm/Hg 08/25/16 22:20 Sodium 138.0 mmol/L (132-148) 08/25/16 22:20 Chloride 106.0 mmol/L (98-107) 08/25/16 22:20 Glucose 182 mg/dL (75-110) H 08/25/16 22:20 Lactate 0.8 mmol/L (0.7-2.1) 08/25/16 22:20 FiO2 100.0 % 08/25/16 22:20 Sodium 147 mmol/l (132-148) 08/28/16 14:22 Potassium 4.4 MMOL/L (3.6-5.0) 08/28/16 14:22 Chloride 104 mmol/L (98-107) 08/28/16 14:22 Carbon Dioxide 25 mmol/L (22-30) 08/28/16 14:22 Anion Gap 21 (10-20) H 08/28/16 14:22 BUN 72 mg/dl (9-20) H 08/28/16 14:22 Creatinine 3.0 mg/dL (0.8-1.5) H 08/28/16 14:22 Est GFR ( Amer) 26 08/28/16 14:22 Est GFR (Non-Af Amer) 22 08/28/16 14:22 POC Glucose (mg/dL) 84 mg/dL (65-110) 08/30/16 13:07 Random Glucose 247 mg/dL (75-110) H 08/28/16 14:22 Hemoglobin A1c 6.2 % (4.2-6.5) 08/26/16 07:50 Calcium 8.6 mg/dL (8.4-10.2) 08/28/16 14:22 Phosphorus 3.7 mg/dl (2.5-4.5) 08/25/16 22:00 Magnesium 1.7 MG/DL (1.6-2.3) 08/25/16 22:00 Total Bilirubin 0.3 mg/dl (0.2-1.3) 08/28/16 14:22 AST 81 U/L (17-59) H D 08/28/16 14:22 ALT 73 U/L (21-72) H D 08/28/16 14:22 Alkaline Phosphatase 69 U/L (38-126) 08/28/16 14:22 Troponin I 0.0230 ng/mL (0.00-0.120) 08/25/16 22:00 NT-Pro-B Natriuret Pep 579 pg/ml (0-900) 08/25/16 22:00 Total Protein 7.0 G/DL (6.3-8.2) 08/28/16 14:22 Albumin 3.7 g/dL (3.5-5.0) 08/28/16 14:22 Globulin 3.4 gm/dL (2.2-3.9) 08/28/16 14:22 Albumin/Globulin Ratio 1.1 (1.0-2.1) 08/28/16 14:22 Triglycerides 101 mg/DL (0-149) D 08/26/16 07:50 Cholesterol 159 mg/dL (0-199) 08/26/16 07:50 LDL Cholesterol Direct 81 mg/dL (0-129) 08/26/16 07:50 HDL Cholesterol 46 MG/DL (30-70) 08/26/16 07:50 Thyroxine (T4) 8.33 ug/dl (5.5-11.0) 08/26/16 07:50 Total T3 0.559 nmol/L (1.49-2.60) L 08/26/16 07:50 TSH 3rd Generation 0.86 mIU/ML (0.46-4.68) 08/26/16 07:50 Arterial Blood Potassium 4.3 mmol/L (3.6-5.2) 08/25/16 22:20 Urine Color Straw (YELLOW) 08/25/16 07:00 Urine Clarity Clear (Clear) 08/25/16 07:00 Urine pH 6.0 (5.0-8.0) 08/25/16 07:00 Ur Specific [place] 1.006 (1.003-1.030) 08/25/16 07:00 Urine Protein Negative mg/dL (NEGATIVE) 08/25/16 07:00 Urine Glucose (UA) Neg mg/dL (Normal) 08/25/16 07:00 Urine Ketones Negative mg/dL (NEGATIVE) 08/25/16 07:00 Urine Blood Negative (NEGATIVE) 08/25/16 07:00 Urine Nitrate Negative (NEGATIVE) 08/25/16 07:00 Urine Bilirubin Negative (NEGATIVE) 08/25/16 07:00 Urine Urobilinogen 0.2-1.0 mg/dL (0.2-1.0) 08/25/16 07:00 Ur Leukocyte Esterase Neg Fareed/uL (Negative) 08/25/16 07:00 Urine RBC (Auto) < 1 /hpf (0-3) 08/25/16 07:00 Urine Microscopic WBC < 1 /hpf (0-5) 08/25/16 07:00 Hyaline Casts 0-2 /hpf (0-2) 08/25/16 07:00 Influenza Typ A,B (EIA) Negative for flu a/b (NEGATIVE) 08/25/16 22:00 - Date & Time of H&P Date of H&P: 08/26/16 Time of H&P: 11:30 Discharge Exam - Head Exam Head Exam: NORMAL INSPECTION Discharge Plan - Follow Up Plan Condition: STABLE Disposition: HOME/ ROUTINE Patient education suggested?: Yes Instructions: Viral Pneumonia (DC), COPD (Chronic Obstructive Pulmonary Disease ) (DC) Additional Instructions: ACTIVITY TOLERATED. HEART HEALTHY LOW FAT, LOW CHOLESTEROL MODERATE CONSISTENT CARBOHYDRATE DIET. FOLLOW -UP W/ DR. Karo ROCHE TO CALL FOR APPT. Referrals: Shakir Roche MD [Family Provider] -
== END 2016-08-30 14:40 | disposition home or self-care (01) | DRG 191 ==
LOC: H.ER 21:04 → H.ERHOLD 22:58 → H.TEL 08-26 01:18
PROVIDERS: ADMIT Internal Medicine Pulmonary Disease; ATTEND Internal Medicine Pulmonary Disease
DX: J44.1 Chronic obstructive pulmonary disease with (acute) exacerbation (principal); Z68.41 Body mass index [BMI] 40.0-44.9, adult; E11.22 Type 2 diabetes mellitus with diabetic chronic kidney disease; E11.65 Type 2 diabetes mellitus with hyperglycemia; I12.9 Hypertensive chronic kidney disease with stage 1 through stage 4 chronic kidney disease, or unspecified chronic kidney disease; N18.9 Chronic kidney disease, unspecified; E03.9 Hypothyroidism, unspecified; G47.33 Obstructive sleep apnea (adult) (pediatric); E66.01 Morbid (severe) obesity due to excess calories; J45.909 Unspecified asthma, uncomplicated; E78.00 Pure hypercholesterolemia, unspecified; Z86.73 Personal history of transient ischemic attack (TIA), and cerebral infarction without residual deficits; F41.9 Anxiety disorder, unspecified

== ENCOUNTER 2017-08-08 18:09 | Inpatient (IN) | payer MEDICARE, OTHER ==
[2017-08-08 21:41] LABS: BASO # 0.2 K/uL (0.0-0.2); BASO % 1.4 % (0.0-2.0); EOS # 0.5 K/uL (0.0-0.7); EOS % 4.1 % (0.0-4.0); HEMOGLOBIN 12.3 g/dL (12.0-18.0); LYMPH # 1.9 K/uL (1.0-4.3); LYMPH % 16.5 % (20.0-40.0); MEAN CELL VOLUME 91.7 fl (80.0-94.0); MEAN CORPUSCULAR HEMOGLOBIN 30.7 pg (27.0-31.0); MEAN CORPUSCULAR HGB CONC 33.5 g/dL (33.0-37.0); MEAN PLATELET VOLUME 8.4 fl (7.2-11.7); MONO # 0.7 K/uL (0.0-0.8); MONO % 6.2 % (0.0-10.0); NEUT # 8.1 K/uL (1.8-7.0); NEUT % 71.8 % (50.0-75.0); NRBC % 0.1 % (0.0-0.0); RED CELL DISTRIBUTION WIDTH 15.3 % (11.5-14.5); WHITE BLOOD COUNT 11.3 K/uL (4.8-10.8)
[2017-08-08 21:49] LABS: PROTHROMBIN TIME 12.8 Seconds (9.8-13.1)
[2017-08-08 21:50] LABS: INR 1.2 (0.9-1.2); PARTIAL THROMBOPLASTIN TIME 35.7 Seconds (25.6-37.1)
[2017-08-08 21:51] LABS: ALB/GLOB RATIO 1.1 (1.0-2.1); ALBUMIN 3.8 g/dL (3.5-5.0); CALCIUM 10.1 mg/dL (8.4-10.2)
--- NOTE | 2017-08-08 22:13 | ED PDOC ---
Lower Extremity Pain/Injury Time Seen by Provider: 08/08/17 20:26 Chief Complaint (Nursing): Lower Extremity Problem/Injury Chief Complaint (Provider): left lower extremity injury History Per: Patient History/Exam Limitations: no limitations Onset/Duration Of Symptoms: Days (x2 ) Current Symptoms Are (Timing): Still Present Additional Complaint(s): Wesley Reyes is a 62 year old male, with a past medical history dyslipidemia, HTN, and renal insufficiency but not on dialysis, who presents to the emergency department for a left lower extremity injury onset x2 days ago. Patient states he slipped on ice coming down from a set of stairs sustaining a tibial wound and puncture wound to left plantar surface. Patient reports applying honey patches but there has been more swelling associated with wound erythema extending up the leg. He denies any purulent drainage but yesterday there was some blood draining from foot. He took Cipro. He denies any fever or chills. No further medical complaints. PMD: Shakir Crowder - Ankle/Foot Description Of Injury: Fell (slipped) Past Medical History Reviewed: Historical Data, Nursing Documentation, Vital Signs Vital Signs: Last Vital Signs Temp 98.4 F 08/08/17 19:23 Pulse 70 08/08/17 19:23 Resp 16 08/08/17 19:23 BP 152/70 H 08/08/17 19:23 Pulse Ox 100 08/08/17 19:23 - Medical History PMH: Anxiety, Asthma, COPD, HTN, Hypercholesterolemia, Hyperthyroidism, Chronic Kidney Disease, Sleep Apnea, TIA Denies: HIV, Hypothyroidism - Surgical History Surgical History: Hernia Repair - Family History Family History: States: Unknown Family Hx - Social History Current smoker - smoking cessation education provided: No Alcohol: None Drugs: Denies - Home Medications Home Medications: Ambulatory Orders Medication Instructions Recorded Insulin Aspart, Recombinant 20 unit SQ TID 06/21/15 [Novolog] Ipratropium [Atrovent HFA] 1 puff IH Q4 PRN 06/21/15 ALPRAZolam [Xanax] 0.5 mg PO HS PRN #0 tab 06/22/15 Fluticasone/Salmeterol 250/50 1 puff IH BID #0 puff 06/22/15 [Advair Diskus 250/50] Insulin Detemir [Levemir] 15 units SC Q12 #0 vial 06/22/15 Insulin Lispro [humALOG] 20 units SC TIDAC #0 ml 06/22/15 Levothyroxine [Synthroid] 112 mcg PO DAILY@0630 #0 tab 06/22/15 Montelukast [Singulair] 10 mg PO HS #0 tab 06/22/15 Sevelamer [Renagel] 800 mg PO TID #0 tab 06/22/15 Sevelamer Carbonate [Renvela] 800 mg PO TID 05/30/16 Albuterol/Ipratropium [Combivent 1 puff IH Q6 PRN #1 inhaler 06/02/16 Respimat] Aspirin [Ecotrin] 81 mg PO DAILY 08/28/16 Calcitriol [Rocaltrol] 0.5 mcg PO DAILY 08/09/17 [id number] Ethyl Esters [OMEGA 3] 1,200 mg PO DAILY 08/09/17 Omeprazole [Omeprazole] PO DAILY 08/09/17 Torsemide [Demadex] 20 mg PO BID 08/09/17 cloNIDine [clonidine HCl] 0.2 mg PO TID 08/09/17 - Allergies Allergies/Adverse Reactions: Allergies Allergy/AdvReac Type Severity Reaction Status Date / Time Sulfa (Sulfonamide Allergy ANAPHYLAXIS Verified 06/21/15 08:42 Antibiotics) Review of Systems ROS Statement: Except As Marked, All Systems Reviewed And Found Negative Constitutional: Negative for: Fever, Chills Musculoskeletal: Positive for: Leg Pain (left lower extremity injury) Physical Exam - Reviewed Nursing Documentation Reviewed: Yes Vital Signs Reviewed: Yes - Physical Exam Appears: Positive for: Non-toxic, No Acute Distress Head Exam: Positive for: ATRAUMATIC, NORMAL INSPECTION, NORMOCEPHALIC Skin: Positive for: Normal Color, Warm, Dry Eye Exam: Positive for: Normal appearance, EOMI, PERRL Neck: Positive for: Painless ROM Cardiovascular/Chest: Positive for: Regular Rate, Rhythm. Negative for: Murmur Respiratory: Positive for: Normal Breath Sounds. Negative for: Respiratory Distress Extremity: Positive for: Normal ROM, Swelling (2+ edema on left lower extremity. ), Other (erythematous, warm and indurated 10 cm irregular stellate deep abrasion.) Neurologic/Psych: Positive for: Alert, Oriented - Laboratory Results Result Diagrams: 08/08/17 21:30 08/08/17 21:30 - ECG O2 Sat by Pulse Oximetry: 100 (RA) Pulse Ox Interpretation: Normal Medical Decision Making Medical Decision Making: Initial Impression: 62 y/o male with left lower extremity wound with known diabetes Initial Plan --Urine dipstick --Morphine 2 mg IVP --Blood culture --Foot left 3 views routine [RAD] --Tibia Fibula Left [RAD] --Duplex Lower Extrm Vein Left [US] --reevaluation 23:25 --EXAM: US Duplex Left Lower Extremity Veins CLINICAL HISTORY: 62 years old, male; Pain; Leg, lower; Left; Additional info: Possible dvt TECHNIQUE: Real-time ultrasound scan of the veins of the left lower extremity with color Doppler flow, spectral waveform analysis and compression. COMPARISON: No relevant prior studies available. FINDINGS: Deep veins: Normal color and spectral Doppler flow. Normal compressibility. No deep vein thrombosis from common femoral to popliteal vein. Superficial veins: No thrombosis. Soft tissues: Edema within soft tissues. IMPRESSION: 1. No evidence of DVT within LEFT lower extremity. 2. Incidental/non-acute findings are described above. 00:10 Labs reviewed and reveal no clinically significant abnormalities. Patient was evaluated by podiatry, who recommends admission for further treatment. Diagnosis: Injected Tibial surface wound with puncture wound to left foot; Cellulitis; lymphangitis Patient case discussed with Dr. Crowder, who is his PMD. Scribe Attestation: Documented by Elijah Valles, acting as a scribe for Eze Trevino MD Provider Scribe Attestation: All medical record entries made by the Scribe were at my direction and personally dictated by me. I have reviewed the chart and agree that the record accurately reflects my personal performance of the history, physical exam, medical decision making, and the department course for this patient. I have also personally directed, reviewed, and agree with the discharge instructions and disposition. Disposition - Clinical Impression Clinical Impression: Cellulitis and abscess of leg, Lymphangitis - Patient ED Disposition Is Patient to be Admitted: Yes Discussed With : Shakir Crowder Doctor Will See Patient In The: Hospital - Disposition Disposition Time: 00:10 Condition: FAIR - Pt Status Changed To: Hospital Disposition Of: Inpatient - Admit Certification Admit to Inpatient:: After my assessment, the patient will require hospitalization for at least two midnights. This is because of the severity of symptoms shown, intensity of services needed, and/or the medical risk in this patient being treated as an outpatient.
--- NOTE | 2017-08-08 23:25 | US ---
EXAM: US Duplex Left Lower Extremity Veins CLINICAL HISTORY: 62 years old, male; Pain; Leg, lower; Left; Additional info: Possible dvt TECHNIQUE: Real-time ultrasound scan of the veins of the left lower extremity with color Doppler flow, spectral waveform analysis and compression. COMPARISON: No relevant prior studies available. FINDINGS: Deep veins: Normal color and spectral Doppler flow. Normal compressibility. No deep vein thrombosis from common femoral to popliteal vein. Superficial veins: No thrombosis. Soft tissues: Edema within soft tissues. IMPRESSION: 1. No evidence of DVT within LEFT lower extremity. 2. Incidental/non-acute findings are described above.
[2017-08-08] MEDS ORDERED: Piperacillin/Tazobact 3.375 GM in Sodium Chloride 0.9% 100 ML IV STA (23:28)
[2017-08-08] MEDS ORDERED: Tdap Vaccine 0.5 ml Vial (10-64 yrs) IM ONE ×2 (23:29→23:39)
[2017-08-08] MEDS ORDERED: Piperacillin/Tazobact 3.375 gm Inj IVPB ONE (23:39)
--- NOTE | 2017-08-09 00:15 | CP.PCM.CON ---
History of Present Illness - History of Present Illness History of Present Illness: 62 year old male, with a past medical history dyslipidemia, HTN, and renal insufficiency but not on dialysis, who presents to the emergency department for a left lower extremity injury onset x2 days ago. Patient states that he fell and banged his front leg on the floor and also sustained a puncture wound to the bottom of his foot but there was no foreign body. Patient says that he has been applying medihoney to the front of his leg but now he noticed more swelling and redness to the front of his leg. Patient also states that he took cipro after the injury. Patient denies any other pedal complaints at this time. Review of Systems - Constitutional Constitutional: As Per HPI Past Patient History - Infectious Disease Hx of Infectious Diseases: None - Past Medical History & Family History Past Medical History?: Yes - Past Social History Alcohol: None Drugs: Denies - CARDIAC Hx Hypercholesterolemia: Yes Hx Hypertension: Yes - PULMONARY Hx Asthma: Yes Hx Chronic Obstructive Pulmonary Disease (COPD): Yes Hx Sleep Apnea: Yes - NEUROLOGICAL Hx Transient Ischemic Attacks (TIA): Yes - HEENT Hx HEENT Problems: No - RENAL Hx Chronic Kidney Disease: Yes - ENDOCRINE/METABOLIC Hx Hyperthyroidism: Yes Hx Hypothyroidism: No - HEMATOLOGICAL/ONCOLOGICAL Hx Human Immunodeficiency Virus (HIV): No - INTEGUMENTARY Hx Dermatological Problems: No - MUSCULOSKELETAL/RHEUMATOLOGICAL Hx Musculoskeletal Disorders: Yes Hx Falls: Yes - GASTROINTESTINAL Hx Gastrointestinal Disorders: No - GENITOURINARY/GYNECOLOGICAL Hx Genitourinary Disorders: No - PSYCHIATRIC Hx Anxiety: Yes - SURGICAL HISTORY Hx Surgeries: Yes Hx Cataract Extraction: Yes Hx Herniorrhaphy: Yes (inguinal) - ANESTHESIA Hx Anesthesia: Yes Hx Anesthesia Reactions: No Hx Malignant Hyperthermia: No Meds Allergies/Adverse Reactions: Allergies Allergy/AdvReac Type Severity Reaction Status Date / Time Sulfa (Sulfonamide Allergy ANAPHYLAXIS Verified 06/21/15 08:42 Antibiotics) - Medications Medications: Current Medications Vancomycin HCl 1 gm/ Sodium (Chloride) 250 mls @ 166.667 mls/hr IVPB STAT STA PRN Reason: Protocol Stop: 08/09/17 00:57 Piperacillin Sod/Tazobactam (Sod 3.375 gm/ Sodium Chloride) 100 mls @ 100 mls/ hr IV STAT STA PRN Reason: Protocol Stop: 08/09/17 00:27 Physical Exam - Constitutional Appears: Well, Non-toxic, No Acute Distress - Extremities Exam Additional comments: Vasc: lightly palpable pedal pulses, nonpalpable PT pulses due to edema, CFT < 3 sec to all digits, TG warm to warm neuro: grossly intact derm: nonpitting edema, localized erythema to anterior left daily, wound to anterior daily measuring 5cm x 6cm x 0.2cm with surrounding erythema and open lesions with serous drainage and fibrous base with central necrotic eschar, mild fluctuance, no purulent drainage, no ascending cellulitis left foot dried hematoma noted to plantar medial heel ortho: pain on palpation to anterior daily - Neurological Exam Neurological exam: Alert, Oriented x3 - Psychiatric Exam Psychiatric exam: Normal Affect, Normal Mood Results - Vital Signs Recent Vital Signs: Last Vital Signs Temp 98.4 F 08/08/17 19:23 Pulse 70 08/08/17 19:23 Resp 16 08/08/17 19:23 BP 152/70 H 08/08/17 19:23 Pulse Ox 100 08/08/17 22:24 - Labs Result Diagrams: 08/08/17 21:30 08/08/17 21:30 Labs: Laboratory Results - last 24 hr 08/08/17 08/08/17 08/08/17 21:30 21:30 21:30 WBC 11.3 H RBC 4.00 L Hgb 12.3 D Hct 36.7 MCV 91.7 MCH 30.7 MCHC 33.5 RDW 15.3 H Plt Count 242 MPV 8.4 Neut % (Auto) 71.8 Lymph % (Auto) 16.[address] [place] % (Auto) 6.2 Eos % (Auto) 4.1 H Baso % (Auto) 1.4 Neut # (Auto) 8.1 H Lymph # (Auto) 1.9 [place] # (Auto) 0.7 Eos # (Auto) 0.5 Baso # (Auto) 0.2 PT INR APTT Sodium 144 Potassium 3.6 Chloride 101 Carbon Dioxide 30 Anion Gap 17 BUN 46 H Creatinine 3.9 H Est GFR ( Amer) 19 Est GFR (Non-Af Amer) 16 POC Glucose (mg/dL) Random Glucose 173 H Lactic Acid 0.8 Calcium 10.1 Total Bilirubin 0.5 AST 48 ALT 58 Alkaline Phosphatase 63 Total Protein 7.2 Albumin 3.8 Globulin 3.4 Albumin/Globulin Ratio 1.1 08/08/17 08/08/17 21:30 23:47 WBC RBC Hgb Hct MCV MCH MCHC RDW Plt Count MPV Neut % (Auto) Lymph % (Auto) [place] % (Auto) Eos % (Auto) Baso % (Auto) Neut # (Auto) Lymph # (Auto) [place] # (Auto) Eos # (Auto) Baso # (Auto) PT 12.8 INR 1.2 APTT 35.7 Sodium Potassium Chloride Carbon Dioxide Anion Gap BUN Creatinine Est GFR ( Amer) Est GFR (Non-Af Amer) POC Glucose (mg/dL) 147 H Random Glucose Lactic Acid Calcium Total Bilirubin AST ALT Alkaline Phosphatase Total Protein Albumin Globulin Albumin/Globulin Ratio Assessment & Plan - Assessment and Plan (Free Text) Assessment: 62 y/o male with pmhx of dyslipidemia, HTN, and renal insufficiency but not on dialysis, seen at [facility] in the ED for left leg wound secondary to fall Plan: patient evaluated and chart reviewed discussed in detail with attending Dr. Humphries labs and vitals reviewed; WBC 11.3, afebrile wound cx of left leg obtained x ray show no evidence of foreign body, soft tissue emphysema applied betadine, DSD to left leg patient to be admitted for localized cellulitis and IV abx US negative for DVT podiatry will continue to follow while patient remains in house
[2017-08-09] MEDS ORDERED: Patient's Own Med (Albuterol/Ipratropium [Combivent Respimat] 1 PUFF) IH PRN (01:52)
[2017-08-09] MEDS ORDERED: Albuterol-Ipratrop 3 mg / 0.5 (3 ml) UD INH PRN (02:03)
[2017-08-09] MEDS: Levothyroxine 112 MCG TAB PO SCH (06:06)
[2017-08-09 07:01] LABS: INR 1.2 (0.9-1.2); PARTIAL THROMBOPLASTIN TIME 35.4 Seconds (25.6-37.1); PROTHROMBIN TIME 13.4 Seconds (9.8-13.1)
[2017-08-09 07:08] LABS: HEMOGLOBIN 12.3 g/dL (12.0-18.0); MEAN CORPUSCULAR HEMOGLOBIN 31.4 pg (27.0-31.0); MEAN CORPUSCULAR HGB CONC 33.8 g/dL (33.0-37.0); RBC 3.9 Mil/uL (4.40-5.90); RED CELL DISTRIBUTION WIDTH 15.6 % (11.5-14.5); WHITE BLOOD COUNT 10.1 K/uL (4.8-10.8)
[2017-08-09 07:22] LABS: ALB/GLOB RATIO 1.2 (1.0-2.1); ALBUMIN 3.5 g/dL (3.5-5.0); CALCIUM 9.9 mg/dL (8.4-10.2)
[2017-08-09 07:24] LABS: T4 8.85 ug/dl (5.5-11.0)
[2017-08-09 07:37] LABS: T3 0.716 nmol/L (1.49-2.60)
[2017-08-09 08:30] LABS: SQUAMOUS EPITHIAL < 1 /hpf (0-5); URINE BILIRUBIN NEGATIVE (NEGATIVE); URINE BLOOD SMALL (NEGATIVE); URINE CLARITY CLEAR (Clear); URINE COLOR YELLOW (YELLOW); URINE GLUCOSE (UA) 150 mg/dL (Normal); URINE HYALINE CAST 0-2 /hpf (0-2); URINE LEUKOCYTE ESTERASE NEG Leu/uL (Negative); URINE PROTEIN >=500 mg/dL (NEGATIVE); URINE UROBILINOGEN 0.2-1.0 mg/dL (0.2-1.0)
[2017-08-09] MEDS: Fluticasone-Salmeterol 250-50mcg Diskus IH SCH ×2 (08:32→17:06)
[2017-08-09] MEDS: Omega-3-Acid Ethyl Esters 1 GM Cap PO SCH (08:34)
[2017-08-09] MEDS: Insulin Lispro (humaLOG) 100 Units/ml Inj SC SCH ×3 (08:35→17:11)
[2017-08-09] MEDS: Insulin Detemir 100 Units/ml Inj SC SCH ×2 (08:41→22:08)
[2017-08-09] MEDS ORDERED: Insulin Lispro (humaLOG) 100 Units/ml Inj SC SCH (09:00)
[2017-08-09] MEDS: Pantoprazole 20 mg EC Tab PO SCH (09:09)
--- NOTE | 2017-08-09 09:32 | RAD ---
PROCEDURE: Radiographs of the left tibia and fibula. HISTORY: r/o osteo COMPARISON: None available. TECHNIQUE: Frontal and lateral views obtained. FINDINGS: BONES: No fracture or destructive lesion. JOINT SPACES: Unremarkable. OTHER FINDINGS: None. IMPRESSION: Unremarkable radiographs of the left tibia and fibula.
--- NOTE | 2017-08-09 09:33 | RAD ---
PROCEDURE: Left Foot Radiographs. HISTORY: foot wound COMPARISON: None. FINDINGS: BONES: No acute fracture. JOINTS: Mild narrowing. SOFT TISSUES: Normal. OTHER FINDINGS: Achilles enthesophyte. IMPRESSION: No demonstrated fracture or dislocation.
--- NOTE | 2017-08-09 10:02 | RAD ---
HISTORY: chest pain COMPARISON: Chest radiograph dated 08/25/2016 FINDINGS: LUNGS: No active pulmonary disease. PLEURA: No significant pleural effusion identified, no pneumothorax apparent. CARDIOVASCULAR: Normal. OSSEOUS STRUCTURES: Unchanged. VISUALIZED UPPER ABDOMEN: Normal. OTHER FINDINGS: None. IMPRESSION: No active disease.
[2017-08-09] MEDS ORDERED: Perflutren Lipid Microsphere 1.5 ML SUS IV ONE (12:28)
--- NOTE | 2017-08-09 12:39 | CP.PCM.CON ---
History of Present Illness - History of Present Illness History of Present Illness: Infectious Disease Consultation Note- asked to see this patient at the request of for LLE cellulitis. HPI- Patient is a 62 year old male with PMH of DM II, HTN, morbid obesity, chronic renal insufficiency who states 3 days ago he fell and banged the front of his left leg and since then he has developed redness, swelling , blisters and dark bloack patch on the frontal LLE. pt. denies any fever or chills. pt. apparently has been refusing vanco because he states has NS and he states " sodium bad for my kidneys and he states he rather have his antibiotics in D5 solution". pt. states he gets hives with sulfa. denies any other medication allergies. Review of Systems - Review of Systems Review of Systems: ROS- denies any fever or chills, denies any SINGH, denies any cough, denies any sob, denies any chest pain, denies any abd. pain, denies any nausea or vomiting, denies any dysurea, denies any diarrhea LLE swelling and redness and blister s/p fall Past Patient History - Infectious Disease Hx of Infectious Diseases: None - Past Medical History & Family History Past Medical History?: Yes - Past Social History Alcohol: None Drugs: Denies - CARDIAC Hx Hypercholesterolemia: Yes Hx Hypertension: Yes - PULMONARY Hx Asthma: Yes Hx Chronic Obstructive Pulmonary Disease (COPD): Yes Hx Sleep Apnea: Yes - NEUROLOGICAL Hx Transient Ischemic Attacks (TIA): Yes - HEENT Hx HEENT Problems: No - RENAL Hx Chronic Kidney Disease: Yes - ENDOCRINE/METABOLIC Hx Hyperthyroidism: Yes Hx Hypothyroidism: No - HEMATOLOGICAL/ONCOLOGICAL Hx Blood Disorders: No - INTEGUMENTARY Hx Dermatological Problems: No - MUSCULOSKELETAL/RHEUMATOLOGICAL Hx Musculoskeletal Disorders: Yes (falls) Hx Falls: Yes - GASTROINTESTINAL Hx Gastrointestinal Disorders: No - GENITOURINARY/GYNECOLOGICAL Hx Genitourinary Disorders: No - PSYCHIATRIC Hx Anxiety: Yes - SURGICAL HISTORY Hx Surgeries: Yes Hx Cataract Extraction: Yes Hx Herniorrhaphy: Yes (inguinal) - ANESTHESIA Hx Anesthesia: Yes Hx Anesthesia Reactions: No Hx Malignant Hyperthermia: No Meds Allergies/Adverse Reactions: Allergies Allergy/AdvReac Type Severity Reaction Status Date / Time Sulfa (Sulfonamide Allergy ANAPHYLAXIS Verified 06/21/15 08:42 Antibiotics) - Medications Medications: Current Medications Albuterol/Ipratropium (Duoneb 3 Mg/0.5 Mg (3 Ml) Ud) 3 ml INH RQ4 PRN PRN Reason: Shortness of Breath Alprazolam (Xanax) 0.5 mg PO HS PRN PRN Reason: Insomnia Stop: 08/16/17 01:53 Aspirin (Ecotrin) 81 mg PO DAILY [facility] Last Admin: 08/09/17 08:33 Dose: 81 mg Calcitriol (Rocaltrol) 0.5 mcg PO DAILY [facility] Last Admin: 08/09/17 08:32 Dose: 0.5 mcg Clonidine HCl (Catapres) 0.2 mg PO TID [facility] Last Admin: 08/09/17 08:33 Dose: 0.2 mg Heparin Sodium (Porcine) (Heparin) 5,000 units SC Q12 [facility] PRN Reason: Protocol Last Admin: 08/09/17 08:34 Dose: Not Given Insulin Detemir (Levemir) 15 units SC Q12 [facility] Last Admin: 08/09/17 08:41 Dose: 15 unit Insulin Human Lispro (Humalog) 20 units SC TIDAC [facility] Last Admin: 08/09/17 08:35 Dose: 20 unit Levothyroxine Sodium (Synthroid) 112 mcg PO DAILY@0630 [facility] Last Admin: 08/09/17 06:06 Dose: 112 mcg Montelukast Sodium (Singulair) 10 mg PO HS [facility] Morphine Sulfate (Morphine) 2 mg IVP Q4 PRN PRN Reason: Pain, moderate (4-7) [id number] Ethyl Esters (Lovaza) 1 gm PO DAILY [facility] Last Admin: 08/09/17 08:34 Dose: 1 gm Pantoprazole Sodium (Protonix Ec Tab) 20 mg PO DAILY [facility] Last Admin: 08/09/17 09:09 Dose: 20 mg Fluticasone/Salmeterol (Advair Diskus 250/50) 1 puff IH BID [facility] Last Admin: 08/09/17 08:32 Dose: 1 puff Sevelamer HCl (Renagel) 800 mg PO TID [facility] Last Admin: 08/09/17 08:34 Dose: 800 mg Torsemide (Demadex) 20 mg PO BID [facility] Last Admin: 08/09/17 08:34 Dose: 20 mg Physical Exam - Constitutional Appears: No Acute Distress - Head Exam Head Exam: ATRAUMATIC - Eye Exam Eye Exam: EOMI - ENT Exam ENT Exam: Normal Oropharynx - Neck Exam Neck exam: Positive for: Full Rom - Respiratory Exam Respiratory Exam: Clear to Auscultation Bilateral, NORMAL BREATHING PATTERN - Cardiovascular Exam Cardiovascular Exam: RRR, +S1, +S2 - GI/Abdominal Exam GI & Abdominal Exam: Normal Bowel Sounds, Soft Additional comments: NT, ND - Extremities Exam Additional comments: LLE frontal region with edema, erythema, warm to touch with few blisters in the region and midportion with black eschar , clear fluid discharge, no malodor. dorsal right foot small closed dry ulcer and one small round dry ulcer on the left frontal plantar region RLE also with some dark discoloration of the skin in frontal RLE but no swelling and no discharge - Neurological Exam Neurological exam: Alert, Oriented x3 Results - Vital Signs Recent Vital Signs: Last Vital Signs Temp 98.0 F 08/09/17 07:44 Pulse 79 08/09/17 08:33 Resp 19 08/09/17 07:44 BP 125/81 08/09/17 08:33 Pulse Ox 95 08/09/17 07:44 - Labs Result Diagrams: 08/09/17 05:20 08/09/17 05:20 Labs: Laboratory Results - last 24 hr 08/08/17 08/08/17 08/08/17 21:30 21:30 21:30 WBC 11.3 H RBC 4.00 L Hgb 12.3 D Hct 36.7 MCV 91.7 MCH 30.7 MCHC 33.5 RDW 15.3 H Plt Count 242 MPV 8.4 Neut % (Auto) 71.8 Lymph % (Auto) 16.5 L Valley % (Auto) 6.2 Eos % (Auto) 4.1 H Baso % (Auto) 1.4 Neut # (Auto) 8.1 H Lymph # (Auto) 1.9 Valley # (Auto) 0.7 Eos # (Auto) 0.5 Baso # (Auto) 0.2 PT INR APTT Sodium 144 Potassium 3.6 Chloride 101 Carbon Dioxide 30 Anion Gap 17 BUN 46 H Creatinine 3.9 H Est GFR ( Amer) 19 Est GFR (Non-Af Amer) 16 POC Glucose (mg/dL) Random Glucose 173 H Hemoglobin A1c Lactic Acid 0.8 Calcium 10.1 Total Bilirubin 0.5 AST 48 ALT 58 Alkaline Phosphatase 63 Total Protein 7.2 Albumin 3.8 Globulin 3.4 Albumin/Globulin Ratio 1.1 Triglycerides Cholesterol LDL Cholesterol Direct HDL Cholesterol Thyroxine (T4) Total T3 TSH 3rd Generation Urine Color Urine Clarity Urine pH Ur Specific [place] Urine Protein Urine Glucose (UA) Urine Ketones Urine Blood Urine Nitrate Urine Bilirubin Urine Urobilinogen Ur Leukocyte Esterase Urine RBC (Auto) Urine Microscopic WBC Ur Squamous Epith Cells Hyaline Casts 08/08/17 08/08/17 08/09/17 21:30 23:47 05:20 WBC 10.1 RBC 3.90 L Hgb 12.3 Hct 36.3 MCV 93.0 MCH 31.4 H MCHC 33.8 RDW 15.6 H Plt Count 226 MPV Neut % (Auto) Lymph % (Auto) Valley % (Auto) Eos % (Auto) Baso % (Auto) Neut # (Auto) Lymph # (Auto) Valley # (Auto) Eos # (Auto) Baso # (Auto) PT 12.8 INR 1.2 APTT 35.7 Sodium Potassium Chloride Carbon Dioxide Anion Gap BUN Creatinine Est GFR ( Amer) Est GFR (Non-Af Amer) POC Glucose (mg/dL) 147 H Random Glucose Hemoglobin A1c Lactic Acid Calcium Total Bilirubin AST ALT Alkaline Phosphatase Total Protein Albumin Globulin Albumin/Globulin Ratio Triglycerides Cholesterol LDL Cholesterol Direct HDL Cholesterol Thyroxine (T4) Total T3 TSH 3rd Generation Urine Color Urine Clarity Urine pH Ur Specific [place] Urine Protein Urine Glucose (UA) Urine Ketones Urine Blood Urine Nitrate Urine Bilirubin Urine Urobilinogen Ur Leukocyte Esterase Urine RBC (Auto) Urine Microscopic WBC Ur Squamous Epith Cells Hyaline Casts 08/09/17 08/09/17 08/09/17 05:20 05:20 05:20 WBC RBC Hgb Hct MCV MCH MCHC RDW Plt Count MPV Neut % (Auto) Lymph % (Auto) Valley % (Auto) Eos % (Auto) Baso % (Auto) Neut # (Auto) Lymph # (Auto) Valley # (Auto) Eos # (Auto) Baso # (Auto) PT 13.4 H INR 1.2 APTT 35.4 Sodium 142 Potassium 3.7 Chloride 102 Carbon Dioxide 27 Anion Gap 17 BUN 45 H Creatinine 3.9 H Est GFR ( Amer) 19 Est GFR (Non-Af Amer) 16 POC Glucose (mg/dL) Random Glucose 201 H Hemoglobin A1c 7.0 H Lactic Acid Calcium 9.9 Total Bilirubin 0.5 AST 37 ALT 56 Alkaline Phosphatase 51 Total Protein 6.6 Albumin 3.5 Globulin 3.1 Albumin/Globulin Ratio 1.2 Triglycerides 112 Cholesterol 138 LDL Cholesterol Direct 76 HDL Cholesterol 33 Thyroxine (T4) 8.85 Total T3 0.716 L TSH 3rd Generation Urine Color Urine Clarity Urine pH Ur Specific [place] Urine Protein Urine Glucose (UA) Urine Ketones Urine Blood Urine Nitrate Urine Bilirubin Urine Urobilinogen Ur Leukocyte Esterase Urine RBC (Auto) Urine Microscopic WBC Ur Squamous Epith Cells Hyaline Casts 08/09/17 08/09/17 08/09/17 05:28 07:43 08:05 WBC RBC Hgb Hct MCV MCH MCHC RDW Plt Count MPV Neut % (Auto) Lymph % (Auto) Valley % (Auto) Eos % (Auto) Baso % (Auto) Neut # (Auto) Lymph # (Auto) Valley # (Auto) Eos # (Auto) Baso # (Auto) PT INR APTT Sodium Potassium Chloride Carbon Dioxide Anion Gap BUN Creatinine Est GFR ( Amer) Est GFR (Non-Af Amer) POC Glucose (mg/dL) 204 H Random Glucose Hemoglobin A1c Lactic Acid Calcium Total Bilirubin AST ALT Alkaline Phosphatase Total Protein Albumin Globulin Albumin/Globulin Ratio Triglycerides Cholesterol LDL Cholesterol Direct HDL Cholesterol Thyroxine (T4) Total T3 TSH 3rd Generation 2.79 Urine Color Yellow Urine Clarity Clear Urine pH 6.0 Ur Specific Kingsley 1.014 Urine Protein >=500 Urine Glucose (UA) 150 Urine Ketones Negative Urine Blood Small Urine Nitrate Negative Urine Bilirubin Negative Urine Urobilinogen 0.2-1.0 Ur Leukocyte Esterase Neg Urine RBC (Auto) 1 Urine Microscopic WBC 2 Ur Squamous Epith Cells < 1 Hyaline Casts 0-2 08/09/17 11:01 WBC RBC Hgb Hct MCV MCH MCHC RDW Plt Count MPV Neut % (Auto) Lymph % (Auto) Valley % (Auto) Eos % (Auto) Baso % (Auto) Neut # (Auto) Lymph # (Auto) Valley # (Auto) Eos # (Auto) Baso # (Auto) PT INR APTT Sodium Potassium Chloride Carbon Dioxide Anion Gap BUN Creatinine Est GFR ( Amer) Est GFR (Non-Af Amer) POC Glucose (mg/dL) 184 H Random Glucose Hemoglobin A1c Lactic Acid Calcium Total Bilirubin AST ALT Alkaline Phosphatase Total Protein Albumin Globulin Albumin/Globulin Ratio Triglycerides Cholesterol LDL Cholesterol Direct HDL Cholesterol Thyroxine (T4) Total T3 TSH 3rd Generation Urine Color Urine Clarity Urine pH Ur Specific [place] Urine Protein Urine Glucose (UA) Urine Ketones Urine Blood Urine Nitrate Urine Bilirubin Urine Urobilinogen Ur Leukocyte Esterase Urine RBC (Auto) Urine Microscopic WBC Ur Squamous Epith Cells Hyaline Casts Laboratory Results - last 72 hr 08/08/17 08/08/17 08/08/17 21:30 21:30 21:30 WBC 11.3 H RBC 4.00 L Hgb 12.3 D Hct 36.7 MCV 91.7 MCH 30.7 MCHC 33.5 RDW 15.3 H Plt Count 242 MPV 8.4 Neut % (Auto) 71.8 Lymph % (Auto) 16.5 L Valley % (Auto) 6.2 Eos % (Auto) 4.1 H Baso % (Auto) 1.4 Neut # (Auto) 8.1 H Lymph # (Auto) 1.9 Valley # (Auto) 0.7 Eos # (Auto) 0.5 Baso # (Auto) 0.2 PT INR APTT Sodium 144 Potassium 3.6 Chloride 101 Carbon Dioxide 30 Anion Gap 17 BUN 46 H Creatinine 3.9 H Est GFR ( Amer) 19 Est GFR (Non-Af Amer) 16 POC Glucose (mg/dL) Random Glucose 173 H Hemoglobin A1c Lactic Acid 0.8 Calcium 10.1 Total Bilirubin 0.5 AST 48 ALT 58 Alkaline Phosphatase 63 Total Protein 7.2 Albumin 3.8 Globulin 3.4 Albumin/Globulin Ratio 1.1 Triglycerides Cholesterol LDL Cholesterol Direct HDL Cholesterol Thyroxine (T4) Total T3 TSH 3rd Generation Urine Color Urine Clarity Urine pH Ur Specific [place] Urine Protein Urine Glucose (UA) Urine Ketones Urine Blood Urine Nitrate Urine Bilirubin Urine Urobilinogen Ur Leukocyte Esterase Urine RBC (Auto) Urine Microscopic WBC Ur Squamous Epith Cells Hyaline Casts 08/08/17 08/08/17 08/09/17 21:30 23:47 05:20 WBC 10.1 RBC 3.90 L Hgb 12.3 Hct 36.3 MCV 93.0 MCH 31.4 H MCHC 33.8 RDW 15.6 H Plt Count 226 MPV Neut % (Auto) Lymph % (Auto) Valley % (Auto) Eos % (Auto) Baso % (Auto) Neut # (Auto) Lymph # (Auto) Valley # (Auto) Eos # (Auto) Baso # (Auto) PT 12.8 INR 1.2 APTT 35.7 Sodium Potassium Chloride Carbon Dioxide Anion Gap BUN Creatinine Est GFR ( Amer) Est GFR (Non-Af Amer) POC Glucose (mg/dL) 147 H Random Glucose Hemoglobin A1c Lactic Acid Calcium Total Bilirubin AST ALT Alkaline Phosphatase Total Protein Albumin Globulin Albumin/Globulin Ratio Triglycerides Cholesterol LDL Cholesterol Direct HDL Cholesterol Thyroxine (T4) Total T3 TSH 3rd Generation Urine Color Urine Clarity Urine pH Ur Specific [place] Urine Protein Urine Glucose (UA) Urine Ketones Urine Blood Urine Nitrate Urine Bilirubin Urine Urobilinogen Ur Leukocyte Esterase Urine RBC (Auto) Urine Microscopic WBC Ur Squamous Epith Cells Hyaline Casts 08/09/17 08/09/17 08/09/17 05:20 05:20 05:20 WBC RBC Hgb Hct MCV MCH MCHC RDW Plt Count MPV Neut % (Auto) Lymph % (Auto) Valley % (Auto) Eos % (Auto) Baso % (Auto) Neut # (Auto) Lymph # (Auto) Valley # (Auto) Eos # (Auto) Baso # (Auto) PT 13.4 H INR 1.2 APTT 35.4 Sodium 142 Potassium 3.7 Chloride 102 Carbon Dioxide 27 Anion Gap 17 BUN 45 H Creatinine 3.9 H Est GFR ( Amer) 19 Est GFR (Non-Af Amer) 16 POC Glucose (mg/dL) Random Glucose 201 H Hemoglobin A1c 7.0 H Lactic Acid Calcium 9.9 Total Bilirubin 0.5 AST 37 ALT 56 Alkaline Phosphatase 51 Total Protein 6.6 Albumin 3.5 Globulin 3.1 Albumin/Globulin Ratio 1.2 Triglycerides 112 Cholesterol 138 LDL Cholesterol Direct 76 HDL Cholesterol 33 Thyroxine (T4) 8.85 Total T3 0.716 L TSH 3rd Generation Urine Color Urine Clarity Urine pH Ur Specific [place] Urine Protein Urine Glucose (UA) Urine Ketones Urine Blood Urine Nitrate Urine Bilirubin Urine Urobilinogen Ur Leukocyte Esterase Urine RBC (Auto) Urine Microscopic WBC Ur Squamous Epith Cells Hyaline Casts 08/09/17 08/09/17 08/09/17 05:28 07:43 08:05 WBC RBC Hgb Hct MCV MCH MCHC RDW Plt Count MPV Neut % (Auto) Lymph % (Auto) Valley % (Auto) Eos % (Auto) Baso % (Auto) Neut # (Auto) Lymph # (Auto) Valley # (Auto) Eos # (Auto) Baso # (Auto) PT INR APTT Sodium Potassium Chloride Carbon Dioxide Anion Gap BUN Creatinine Est GFR ( Amer) Est GFR (Non-Af Amer) POC Glucose (mg/dL) 204 H Random Glucose Hemoglobin A1c Lactic Acid Calcium Total Bilirubin AST ALT Alkaline Phosphatase Total Protein Albumin Globulin Albumin/Globulin Ratio Triglycerides Cholesterol LDL Cholesterol Direct HDL Cholesterol Thyroxine (T4) Total T3 TSH 3rd Generation 2.79 Urine Color Yellow Urine Clarity Clear Urine pH 6.0 Ur Specific [place] 1.014 Urine Protein >=500 Urine Glucose (UA) 150 Urine Ketones Negative Urine Blood Small Urine Nitrate Negative Urine Bilirubin Negative Urine Urobilinogen 0.2-1.0 Ur Leukocyte Esterase Neg Urine RBC (Auto) 1 Urine Microscopic WBC 2 Ur Squamous Epith Cells < 1 Hyaline Casts 0-2 08/09/17 11:01 WBC RBC Hgb Hct MCV MCH MCHC RDW Plt Count MPV Neut % (Auto) Lymph % (Auto) Valley % (Auto) Eos % (Auto) Baso % (Auto) Neut # (Auto) Lymph # (Auto) Valley # (Auto) Eos # (Auto) Baso # (Auto) PT INR APTT Sodium Potassium Chloride Carbon Dioxide Anion Gap BUN Creatinine Est GFR ( Amer) Est GFR (Non-Af Amer) POC Glucose (mg/dL) 184 H Random Glucose Hemoglobin A1c Lactic Acid Calcium Total Bilirubin AST ALT Alkaline Phosphatase Total Protein Albumin Globulin Albumin/Globulin Ratio Triglycerides Cholesterol LDL Cholesterol Direct HDL Cholesterol Thyroxine (T4) Total T3 TSH 3rd Generation Urine Color Urine Clarity Urine pH Ur Specific [place] Urine Protein Urine Glucose (UA) Urine Ketones Urine Blood Urine Nitrate Urine Bilirubin Urine Urobilinogen Ur Leukocyte Esterase Urine RBC (Auto) Urine Microscopic WBC Ur Squamous Epith Cells Hyaline Casts Microbiology 08/08/17 23:40 Leg - Left Gram Stain - Final Microbiology 08/27/16 12:45 Sputum Gram Stain - Final 08/27/16 12:45 Sputum Sputum Culture - Final NORMAL SAPROPHYTIC CONSTANZA 08/25/16 22:05 Blood Blood Culture - Final 08/25/16 22:05 Blood Gram Stain - Final NO GROWTH AFTER 5 DAYS TEST NOT PERFORMED 08/25/16 21:50 Blood Blood Culture - Final 08/25/16 21:50 Blood Gram Stain - Final NO GROWTH AFTER 5 DAYS TEST NOT PERFORMED 05/31/16 16:30 Blood-Venous Blood Culture - Final 05/31/16 16:30 Blood-Venous Gram Stain - Final NO GROWTH AFTER 5 DAYS TEST NOT PERFORMED 05/30/16 17:30 Blood Blood Culture - Final 05/30/16 17:30 Blood Gram Stain - Final NO GROWTH AFTER 5 DAYS TEST NOT PERFORMED 05/30/16 17:30 Blood Blood Culture - Final 05/30/16 17:30 Blood Gram Stain - Final NO GROWTH AFTER 5 DAYS TEST NOT PERFORMED Accession No. : [id number] Patient Name / ID : ANDREAS Knight / [id number] Exam Date : 08/08/2017 21:36:48 ( Approved ) Study Comment : Sex / Age : M / 62Y Creator : Rios Shelby MD Dictator : Rios Shelby MD High School Teacher : Plating Stripper : Rios Shelby MD Approver2 : Report Date : 08/09/2017 09:30:40 My Comment : PROCEDURE: Radiographs of the left tibia and fibula. HISTORY: r/o osteo COMPARISON: None available. TECHNIQUE: Frontal and lateral views obtained. FINDINGS: BONES: No fracture or destructive lesion. JOINT SPACES: Unremarkable. OTHER FINDINGS: None. IMPRESSION: Unremarkable radiographs of the left tibia and fibula. Accession No. : [id number] Patient Name / ID : ANDREAS Knight / [id number] Exam Date : 08/08/2017 22:26:16 ( Approved ) Study Comment : Sex / Age : M / 62Y Creator : Jewel Jin MD Dictator : High School Teacher : Plating Stripper : Jewel Jin MD Approver2 : Report Date : 08/08/2017 23:25:00 My Comment : [facility] Division of Radiology [address] [place] [address] Tel. no. Patient Name: CHERI JOHNS Pt. Address: [address] [place] [address] Rec #: [id number] [place] [address]: Belinda KEITH, Eze Roblero Pt CELL Order Location: [facility] : 1955 Male Age: 62 Order #: [id number] Reason for exam: possible DVT Ultrasound DUPLEX LOWER EXTRM VEIN LEFT Exam Date: 08/08/17 This imaging exam was performed at [facility] EXAM: US Duplex Left Lower Extremity Veins CLINICAL HISTORY: 62 years old, male; Pain; Leg, lower; Left; Additional info: Possible dvt TECHNIQUE: Real-time ultrasound scan of the veins of the left lower extremity with color Doppler flow, spectral waveform analysis and compression. COMPARISON: No relevant prior studies available. FINDINGS: Deep veins: Normal color and spectral Doppler flow. Normal compressibility. No deep vein thrombosis from common femoral to popliteal vein. Superficial veins: No thrombosis. Soft tissues: Edema within soft tissues. IMPRESSION: 1. No evidence of DVT within LEFT lower extremity. 2. Incidental/non-acute findings are described above. Dictated By: Jewel Jin MD Dictated Date/Time: 08/08/172324 Signed By: Jewel Jin MD Date Signed: [id number] Transcribed By: MACARIO Transcribe Date/Time : 08/08/172324 ACYP02/VRD Accession No. : [id number] Patient Name / ID : ANDREAS Knight / [id number] Exam Date : 08/08/2017 21:41:09 ( Approved ) Study Comment : Sex / Age : M / 62Y Creator : Rios Shelby MD Dictator : Rios Shelby MD High School Teacher : Plating Stripper : Rios Shelby MD Approver2 : Report Date : 08/09/2017 09:31:24 My Comment : PROCEDURE: Left Foot Radiographs. HISTORY: foot wound COMPARISON: None. FINDINGS: BONES: No acute fracture. JOINTS: Mild narrowing. SOFT TISSUES: Normal. OTHER FINDINGS: Achilles enthesophyte. IMPRESSION: No demonstrated fracture or dislocation. Assessment & Plan - Assessment and Plan (Free Text) Assessment: A/P- 62 year old male with DM II, HTn, obesity admitted with LLE cellulitis and eschar. afebrile normal wbc count plan- check wound cx. cehck blood cx. in light of renal insufficiency advise to place on daptomycin for staph coverage /cellulitis. also advise to continue with zosyn (renal dose ) to cover for gram neg and empirically for pseudomonas since pt.is diabetic. check ESR. may need vascular studies to ascertain if there is PVD . may need superficial debridement of the LLE eschar by podiatry. All above d/w patient at length and all his questions were answered and he verbalizes full understanding of all above and agrees with above plan of care. Thank you for allowing me to take part in the care of this patient.
--- NOTE | 2017-08-09 13:16 | US ---
PROCEDURE: Ultrasound of the Kidneys HISTORY: Chronic kidney disease COMPARISON: None available. TECHNIQUE: Sonogram of the kidneys. FINDINGS: RIGHT KIDNEY: Measures: 11.5 x 5.6 x 6.6 cm. Normal in size, contour and echogenicity. No stone, solid mass lesion or hydronephrosis visualized. LEFT KIDNEY: Measures: 11.7 x 6.6 x 6.0 cm. Normal in size, contour and echogenicity. No stone, solid mass lesion or hydronephrosis visualized. OTHER FINDINGS: None. IMPRESSION: Unremarkable renal sonogram.
[2017-08-09] MEDS ORDERED: Povidone Iodine Topical 10% Sol ONE (14:05)
--- NOTE | 2017-08-09 15:10 | CARD ---
APPROVED REPORT EXAM: LIMITED Two-dimensional echocardiogram with contrast. Other Information Quality : PoorRhythm : NSR Technically limited study due to body habitus. INDICATION LV Function:SystolicDiastolic Echo Enhancing Agent Indication: Endocardial border delineation Agent/Amount Used: Definity 2D DIMENSIONS LVEF (%)55.0 (>50%) Mitral Valve E/A ratio0.0 TDI E/Lateral E'0.0E/Medial E'0.0 LEFT VENTRICLE The left ventricle is normal size. There is normal left ventricular wall thickness. The left ventricular function is normal. The left ventricular ejection fraction is within the normal range. There is normal LV segmental wall motion. Transmitral Doppler flow pattern is not evaluated No left ventricle thrombus noted on this study. RIGHT VENTRICLE The right ventricle is normal size. There is normal right ventricular wall thickness. The right ventricular systolic function is normal. ATRIA The left atrium size is normal. The right atrium size is normal. AORTIC VALVE The aortic valve is not well visualized. AI not evaluated not evaluated MITRAL VALVE The mitral valve is not well visualized. MS not evaluated MR not evaluated TRICUSPID VALVE The tricuspid valve is not well seen TR not evaluated PULMONIC VALVE The pulmonary valve is not well seen PI not evaluated GREAT VESSELS The aortic root is normal in size. The IVC was not visualized. PERICARDIAL EFFUSION The pericardium appears normal. <Conclusion> The left ventricle is normal size. The left ventricular function is normal. The left ventricular ejection fraction is within the normal range. No left ventricle thrombus noted on this study.
--- NOTE | 2017-08-09 15:23 | CP.PCM.CON ---
History of Present Illness - History of Present Illness History of Present Illness: renal consult note Hpi: Review of Systems - Review of Systems All systems: reviewed and no additional remarkable complaints except Past Patient History - Infectious Disease Hx of Infectious Diseases: None - Past Medical History & Family History Past Medical History?: Yes - Past Social History Alcohol: None Drugs: Denies - CARDIAC Hx Hypercholesterolemia: Yes Hx Hypertension: Yes - PULMONARY Hx Asthma: Yes Hx Chronic Obstructive Pulmonary Disease (COPD): Yes Hx Sleep Apnea: Yes - NEUROLOGICAL Hx Transient Ischemic Attacks (TIA): Yes - HEENT Hx HEENT Problems: No - RENAL Hx Chronic Kidney Disease: Yes - ENDOCRINE/METABOLIC Hx Hyperthyroidism: Yes Hx Hypothyroidism: No - HEMATOLOGICAL/ONCOLOGICAL Hx Human Immunodeficiency Virus (HIV): No - INTEGUMENTARY Hx Dermatological Problems: No - MUSCULOSKELETAL/RHEUMATOLOGICAL Hx Musculoskeletal Disorders: Yes (falls) Hx Falls: Yes - GASTROINTESTINAL Hx Gastrointestinal Disorders: No - GENITOURINARY/GYNECOLOGICAL Hx Genitourinary Disorders: No - PSYCHIATRIC Hx Anxiety: Yes - SURGICAL HISTORY Hx Surgeries: Yes Hx Cataract Extraction: Yes Hx Herniorrhaphy: Yes (inguinal) - ANESTHESIA Hx Anesthesia: Yes Hx Anesthesia Reactions: No Hx Malignant Hyperthermia: No Meds Allergies/Adverse Reactions: Allergies Allergy/AdvReac Type Severity Reaction Status Date / Time Sulfa (Sulfonamide Allergy ANAPHYLAXIS Verified 06/21/15 08:42 Antibiotics) - Medications Medications: Current Medications Albuterol/Ipratropium (Duoneb 3 Mg/0.5 Mg (3 Ml) Ud) 3 ml INH RQ4 PRN PRN Reason: Shortness of Breath Alprazolam (Xanax) 0.5 mg PO HS PRN PRN Reason: Insomnia Stop: 08/16/17 01:53 Aspirin (Ecotrin) 81 mg PO DAILY [facility] Last Admin: 08/09/17 08:33 Dose: 81 mg Calcitriol (Rocaltrol) 0.5 mcg PO DAILY [facility] Last Admin: 08/09/17 08:32 Dose: 0.5 mcg Clonidine HCl (Catapres) 0.2 mg PO TID [facility] Last Admin: 08/09/17 13:44 Dose: 0.2 mg Heparin Sodium (Porcine) (Heparin) 5,000 units SC Q12 [facility] PRN Reason: Protocol Last Admin: 08/09/17 08:34 Dose: Not Given Insulin Detemir (Levemir) 15 units SC Q12 [facility] Last Admin: 08/09/17 08:41 Dose: 15 unit Insulin Human Lispro (Humalog) 20 units SC TIDAC [facility] Last Admin: 08/09/17 13:30 Dose: 20 unit Levothyroxine Sodium (Synthroid) 112 mcg PO DAILY@0630 [facility] Last Admin: 08/09/17 06:06 Dose: 112 mcg Montelukast Sodium (Singulair) 10 mg PO HS [facility] Morphine Sulfate (Morphine) 2 mg IVP Q4 PRN PRN Reason: Pain, moderate (4-7) [id number] Ethyl Esters (Lovaza) 1 gm PO DAILY [facility] Last Admin: 08/09/17 08:34 Dose: 1 gm Pantoprazole Sodium (Protonix Ec Tab) 20 mg PO DAILY [facility] Last Admin: 08/09/17 09:09 Dose: 20 mg Fluticasone/Salmeterol (Advair Diskus 250/50) 1 puff IH BID [facility] Last Admin: 08/09/17 08:32 Dose: 1 puff Sevelamer HCl (Renagel) 800 mg PO TID [facility] Last Admin: 08/09/17 13:47 Dose: 800 mg Torsemide (Demadex) 20 mg PO BID [facility] Last Admin: 08/09/17 08:34 Dose: 20 mg Physical Exam - Constitutional Appears: Non-toxic, No Acute Distress Additional comments: obese - Head Exam Head Exam: NORMAL INSPECTION - Eye Exam Eye Exam: Normal appearance - ENT Exam ENT Exam: Mucous Membranes Moist - Neck Exam Neck exam: Positive for: Normal Inspection - Respiratory Exam Respiratory Exam: Clear to Auscultation Bilateral, NORMAL BREATHING PATTERN - Cardiovascular Exam Cardiovascular Exam: REGULAR RHYTHM, +S1, +S2 - GI/Abdominal Exam GI & Abdominal Exam: Soft - Extremities Exam Additional comments: left leg wrapped in dressing - Back Exam Back exam: NORMAL INSPECTION - Neurological Exam Neurological exam: Alert, Oriented x3 - Psychiatric Exam Psychiatric exam: Normal Mood Results - Vital Signs Recent Vital Signs: Last Vital Signs Temp 98.0 F 08/09/17 07:44 Pulse 64 08/09/17 13:44 Resp 19 08/09/17 07:44 BP 153/75 H 08/09/17 13:44 Pulse Ox 95 08/09/17 07:44 - Labs Result Diagrams: 08/09/17 05:20 08/09/17 05:20 Labs: Laboratory Results - last 24 hr 08/08/17 08/08/17 08/08/17 21:30 21:30 21:30 WBC 11.3 H RBC 4.00 L Hgb 12.3 D Hct 36.7 MCV 91.7 MCH 30.7 MCHC 33.5 RDW 15.3 H Plt Count 242 MPV 8.4 Neut % (Auto) 71.8 Lymph % (Auto) 16.5 L Robeson % (Auto) 6.2 Eos % (Auto) 4.1 H Baso % (Auto) 1.4 Neut # (Auto) 8.1 H Lymph # (Auto) 1.9 Robeson # (Auto) 0.7 Eos # (Auto) 0.5 Baso # (Auto) 0.2 PT INR APTT Sodium 144 Potassium 3.6 Chloride 101 Carbon Dioxide 30 Anion Gap 17 BUN 46 H Creatinine 3.9 H Est GFR ( Amer) 19 Est GFR (Non-Af Amer) 16 POC Glucose (mg/dL) Random Glucose 173 H Hemoglobin A1c Lactic Acid 0.8 Calcium 10.1 Total Bilirubin 0.5 AST 48 ALT 58 Alkaline Phosphatase 63 Total Protein 7.2 Albumin 3.8 Globulin 3.4 Albumin/Globulin Ratio 1.1 Triglycerides Cholesterol LDL Cholesterol Direct HDL Cholesterol Thyroxine (T4) Total T3 TSH 3rd Generation Urine Color Urine Clarity Urine pH Ur Specific [place] Urine Protein Urine Glucose (UA) Urine Ketones Urine Blood Urine Nitrate Urine Bilirubin Urine Urobilinogen Ur Leukocyte Esterase Urine RBC (Auto) Urine Microscopic WBC Ur Squamous Epith Cells Hyaline Casts 08/08/17 08/08/17 08/09/17 21:30 23:47 05:20 WBC 10.1 RBC 3.90 L Hgb 12.3 Hct 36.3 MCV 93.0 MCH 31.4 H MCHC 33.8 RDW 15.6 H Plt Count 226 MPV Neut % (Auto) Lymph % (Auto) [place] % (Auto) Eos % (Auto) Baso % (Auto) Neut # (Auto) Lymph # (Auto) Robeson # (Auto) Eos # (Auto) Baso # (Auto) PT 12.8 INR 1.2 APTT 35.7 Sodium Potassium Chloride Carbon Dioxide Anion Gap BUN Creatinine Est GFR ( Amer) Est GFR (Non-Af Amer) POC Glucose (mg/dL) 147 H Random Glucose Hemoglobin A1c Lactic Acid Calcium Total Bilirubin AST ALT Alkaline Phosphatase Total Protein Albumin Globulin Albumin/Globulin Ratio Triglycerides Cholesterol LDL Cholesterol Direct HDL Cholesterol Thyroxine (T4) Total T3 TSH 3rd Generation Urine Color Urine Clarity Urine pH Ur Specific [place] Urine Protein Urine Glucose (UA) Urine Ketones Urine Blood Urine Nitrate Urine Bilirubin Urine Urobilinogen Ur Leukocyte Esterase Urine RBC (Auto) Urine Microscopic WBC Ur Squamous Epith Cells Hyaline Casts 08/09/17 08/09/17 08/09/17 05:20 05:20 05:20 WBC RBC Hgb Hct MCV MCH MCHC RDW Plt Count MPV Neut % (Auto) Lymph % (Auto) [place] % (Auto) Eos % (Auto) Baso % (Auto) Neut # (Auto) Lymph # (Auto) [place] # (Auto) Eos # (Auto) Baso # (Auto) PT 13.4 H INR 1.2 APTT 35.4 Sodium 142 Potassium 3.7 Chloride 102 Carbon Dioxide 27 Anion Gap 17 BUN 45 H Creatinine 3.9 H Est GFR ( Amer) 19 Est GFR (Non-Af Amer) 16 POC Glucose (mg/dL) Random Glucose 201 H Hemoglobin A1c 7.0 H Lactic Acid Calcium 9.9 Total Bilirubin 0.5 AST 37 ALT 56 Alkaline Phosphatase 51 Total Protein 6.6 Albumin 3.5 Globulin 3.1 Albumin/Globulin Ratio 1.2 Triglycerides 112 Cholesterol 138 LDL Cholesterol Direct 76 HDL Cholesterol 33 Thyroxine (T4) 8.85 Total T3 0.716 L TSH 3rd Generation Urine Color Urine Clarity Urine pH Ur Specific [place] Urine Protein Urine Glucose (UA) Urine Ketones Urine Blood Urine Nitrate Urine Bilirubin Urine Urobilinogen Ur Leukocyte Esterase Urine RBC (Auto) Urine Microscopic WBC Ur Squamous Epith Cells Hyaline Casts 08/09/17 08/09/17 08/09/17 05:28 07:43 08:05 WBC RBC Hgb Hct MCV MCH MCHC RDW Plt Count MPV Neut % (Auto) Lymph % (Auto) Robeson % (Auto) Eos % (Auto) Baso % (Auto) Neut # (Auto) Lymph # (Auto) [place] # (Auto) Eos # (Auto) Baso # (Auto) PT INR APTT Sodium Potassium Chloride Carbon Dioxide Anion Gap BUN Creatinine Est GFR ( Amer) Est GFR (Non-Af Amer) POC Glucose (mg/dL) 204 H Random Glucose Hemoglobin A1c Lactic Acid Calcium Total Bilirubin AST ALT Alkaline Phosphatase Total Protein Albumin Globulin Albumin/Globulin Ratio Triglycerides Cholesterol LDL Cholesterol Direct HDL Cholesterol Thyroxine (T4) Total T3 TSH 3rd Generation 2.79 Urine Color Yellow Urine Clarity Clear Urine pH 6.0 Ur Specific [place] 1.014 Urine Protein >=500 Urine Glucose (UA) 150 Urine Ketones Negative Urine Blood Small Urine Nitrate Negative Urine Bilirubin Negative Urine Urobilinogen 0.2-1.0 Ur Leukocyte Esterase Neg Urine RBC (Auto) 1 Urine Microscopic WBC 2 Ur Squamous Epith Cells < 1 Hyaline Casts 0-2 08/09/17 11:01 WBC RBC Hgb Hct MCV MCH MCHC RDW Plt Count MPV Neut % (Auto) Lymph % (Auto) Robeson % (Auto) Eos % (Auto) Baso % (Auto) Neut # (Auto) Lymph # (Auto) Robeson # (Auto) Eos # (Auto) Baso # (Auto) PT INR APTT Sodium Potassium Chloride Carbon Dioxide Anion Gap BUN Creatinine Est GFR ( Amer) Est GFR (Non-Af Amer) POC Glucose (mg/dL) 184 H Random Glucose Hemoglobin A1c Lactic Acid Calcium Total Bilirubin AST ALT Alkaline Phosphatase Total Protein Albumin Globulin Albumin/Globulin Ratio Triglycerides Cholesterol LDL Cholesterol Direct HDL Cholesterol Thyroxine (T4) Total T3 TSH 3rd Generation Urine Color Urine Clarity Urine pH Ur Specific [place] Urine Protein Urine Glucose (UA) Urine Ketones Urine Blood Urine Nitrate Urine Bilirubin Urine Urobilinogen Ur Leukocyte Esterase Urine RBC (Auto) Urine Microscopic WBC Ur Squamous Epith Cells Hyaline Casts Assessment & Plan - Assessment and Plan (Free Text) Plan: CKD stage 4/htn/dm-2/leg injury cr is worse since last time he was in the hospital. likely prigression of hid ckd ckd sec to dm/htn check urine for proteinuria. renal USG done and pending continue binders and calcitriol check phos levels vitamin d levels and pth
[2017-08-09] MEDS ORDERED: DAPTOmycin 600 MG in Sodium Chloride 0.9% 100 ML IV SCH (15:45)
--- NOTE | 2017-08-09 21:56 | CP.PCM.HP ---
History of Present Illness - History of Present Illness History of Present Illness: CC: LLE injury/fall. 62 y/o M, Multiple chronic medical conditions, [facility] pain 2nd to injury after slipped walking downstairs from home down to the street and fall on ice, hitting his L leg with the edge of last step onset 2 days [employer]. Pt was applying Bactroban with Honey with no relief. Pt c/o of LLE increased pain from injury, described as constant, moderate intensity 7:10, associated to skin tear from fall. Worsening symptom: L lower leg swelling, redness and blister. Morbid obesity > 40% over IDW. Aggravated factor: Moving/ exercise/prolonging standing. Pr denied: fever, chills, syncope, dizziness, CP, palpitations, SOB, cough, n/v /d, abdominal pain, urinary symptoms, sick contact, recent travel out of [facility]. L Tibia/Fibula X-Ray: Unremarkable. Ext U-S: No DVT. L Foot X-Ray: No Fx or dislocation. CXR: No active disease. Echo: Normal. Renal U-S: Unremarkable. Present on Admission - Present on Admission Any Indicators Present on Admission: No Review of Systems - Constitutional Constitutional: Other (Obese ) - EENT Eyes: Other (negative) Ears: Other (negative) Nose/Mouth/Throat: Other (negative) - Cardiovascular Cardiovascular: Other (negative) - Respiratory Respiratory: Other (negative) - Gastrointestinal Gastrointestinal: Other (negative) - Genitourinary Genitourinary: Other (negative) - Musculoskeletal Musculoskeletal: Arthralgias - Integumentary Integumentary: Swelling, Wounds - Neurological Neurological: Other (negative) - Psychiatric Psychiatric: Anxiety - Endocrine Endocrine: Other (obese.) - Hematologic/Lymphatic Hematologic: Other (negative) Past Patient History - Infectious Disease Hx of Infectious Diseases: None - Past Medical History & Family History Past Medical History?: Yes Pertinent Family History: Unknown - Past Social History Smoking Status: Never Smoked Alcohol: None Drugs: Denies Home Situation {Lives}: With Family - CARDIAC Hx Cardiac Disorders: Yes Hx Hypercholesterolemia: Yes Hx Hypertension: Yes - PULMONARY Hx Respiratory Disorders: Yes Hx Asthma: Yes Hx Chronic Obstructive Pulmonary Disease (COPD): Yes Hx Sleep Apnea: Yes - NEUROLOGICAL Hx Neurological Disorder: Yes Hx Transient Ischemic Attacks (TIA): Yes - HEENT Hx HEENT Problems: No - RENAL Hx Chronic Kidney Disease: Yes - ENDOCRINE/METABOLIC Hx Endocrine Disorders: Yes Hx Hypothyroidism: Yes - HEMATOLOGICAL/ONCOLOGICAL Hx Blood Disorders: No - INTEGUMENTARY Hx Dermatological Problems: No - MUSCULOSKELETAL/RHEUMATOLOGICAL Hx Musculoskeletal Disorders: Yes (falls) Hx Arthritis: Yes Hx Falls: Yes - GASTROINTESTINAL Hx Gastrointestinal Disorders: No - GENITOURINARY/GYNECOLOGICAL Hx Genitourinary Disorders: No - PSYCHIATRIC Hx Psychophysiologic Disorder: Yes Hx Anxiety: Yes - SURGICAL HISTORY Hx Surgeries: Yes Hx Cataract Extraction: Yes Hx Herniorrhaphy: Yes (inguinal) - ANESTHESIA Hx Anesthesia: Yes Hx Anesthesia Reactions: No Hx Malignant Hyperthermia: No Meds Home Medications: Home Medication List Medication Instructions Recorded Confirmed Type Heparin 5,000 units SC Q12 vial 08/11/17 Rx Linezolid 600 mg in D5W 300 ml 600 mg IV Q12 #15 bag 08/11/17 Rx [Zyvox IV] Allergies/Adverse Reactions: Allergies Allergy/AdvReac Type Severity Reaction Status Date / Time Sulfa (Sulfonamide Allergy ANAPHYLAXIS Verified 06/21/15 08:42 Antibiotics) Physical Exam - Constitutional Appears: No Acute Distress - Head Exam Head Exam: NORMAL INSPECTION - Eye Exam Eye Exam: PERRL - ENT Exam ENT Exam: Normal Oropharynx - Neck Exam Neck exam: Positive for: Full Rom, Normal Inspection - Respiratory Exam Respiratory Exam: NORMAL BREATHING PATTERN - Cardiovascular Exam Cardiovascular Exam: REGULAR RHYTHM - GI/Abdominal Exam GI & Abdominal Exam: Normal Bowel Sounds, Soft Additional comments: obese - Extremities Exam Additional comments: Left leg frontal region with edema, erythema, warm to touch with few blisters in the region and mid-portion with black eschar, dorsal R foot small closed dry ulcer and one small round dry ulcer on the frontal plantar region, clear fluid discharge. RLE has some dark discoloration of the skin in frontal RLE but no swelling and no discharge. - Back Exam Back exam: NORMAL INSPECTION - Neurological Exam Neurological exam: Alert, Oriented x3 - Psychiatric Exam Psychiatric exam: Anxious - Skin Skin Exam: Warm Results - Vital Signs Recent Vital Signs: Last Vital Signs Temp 98.5 F 08/09/17 15:42 Pulse 74 08/09/17 17:08 Resp 19 08/09/17 15:42 BP 128/71 08/09/17 17:08 Pulse Ox 96 08/09/17 15:42 reviewed J.P. - Labs Result Diagrams: 08/11/17 05:40 08/11/17 05:40 Labs: Laboratory Results - last 24 hr 08/08/17 08/09/17 08/09/17 23:47 05:20 05:20 WBC 10.1 RBC 3.90 L Hgb 12.3 Hct 36.3 MCV 93.0 MCH 31.4 H MCHC 33.8 RDW 15.6 H Plt Count 226 ESR PT 13.4 H INR 1.2 APTT 35.4 Sodium Potassium Chloride Carbon Dioxide Anion Gap BUN Creatinine Est GFR ( Amer) Est GFR (Non-Af Amer) POC Glucose (mg/dL) 147 H Random Glucose Hemoglobin A1c Calcium Total Bilirubin AST ALT Alkaline Phosphatase Total Protein Albumin Globulin Albumin/Globulin Ratio Triglycerides Cholesterol LDL Cholesterol Direct HDL Cholesterol Thyroxine (T4) Total T3 TSH 3rd Generation Urine Color Urine Clarity Urine pH Ur Specific [place] Urine Protein Urine Glucose (UA) Urine Ketones Urine Blood Urine Nitrate Urine Bilirubin Urine Urobilinogen Ur Leukocyte Esterase Urine RBC (Auto) Urine Microscopic WBC Ur Squamous Epith Cells Hyaline Casts 08/09/17 08/09/17 08/09/17 05:20 05:20 05:28 WBC RBC Hgb Hct MCV MCH MCHC RDW Plt Count ESR PT INR APTT Sodium 142 Potassium 3.7 Chloride 102 Carbon Dioxide 27 Anion Gap 17 BUN 45 H Creatinine 3.9 H Est GFR ( Amer) 19 Est GFR (Non-Af Amer) 16 POC Glucose (mg/dL) 204 H Random Glucose 201 H Hemoglobin A1c 7.0 H Calcium 9.9 Total Bilirubin 0.5 AST 37 ALT 56 Alkaline Phosphatase 51 Total Protein 6.6 Albumin 3.5 Globulin 3.1 Albumin/Globulin Ratio 1.2 Triglycerides 112 Cholesterol 138 LDL Cholesterol Direct 76 HDL Cholesterol 33 Thyroxine (T4) 8.85 Total T3 0.716 L TSH 3rd Generation Urine Color Urine Clarity Urine pH Ur Specific [place] Urine Protein Urine Glucose (UA) Urine Ketones Urine Blood Urine Nitrate Urine Bilirubin Urine Urobilinogen Ur Leukocyte Esterase Urine RBC (Auto) Urine Microscopic WBC Ur Squamous Epith Cells Hyaline Casts 08/09/17 08/09/17 08/09/17 07:43 08:05 11:01 WBC RBC Hgb Hct MCV MCH MCHC RDW Plt Count ESR PT INR APTT Sodium Potassium Chloride Carbon Dioxide Anion Gap BUN Creatinine Est GFR ( Amer) Est GFR (Non-Af Amer) POC Glucose (mg/dL) 184 H Random Glucose Hemoglobin A1c Calcium Total Bilirubin AST ALT Alkaline Phosphatase Total Protein Albumin Globulin Albumin/Globulin Ratio Triglycerides Cholesterol LDL Cholesterol Direct HDL Cholesterol Thyroxine (T4) Total T3 TSH 3rd Generation 2.79 Urine Color Yellow Urine Clarity Clear Urine pH 6.0 Ur Specific [place] 1.014 Urine Protein >=500 Urine Glucose (UA) 150 Urine Ketones Negative Urine Blood Small Urine Nitrate Negative Urine Bilirubin Negative Urine Urobilinogen 0.2-1.0 Ur Leukocyte Esterase Neg Urine RBC (Auto) 1 Urine Microscopic WBC 2 Ur Squamous Epith Cells < 1 Hyaline Casts 0-2 08/09/17 08/09/17 08/09/17 15:35 17:24 21:31 WBC RBC Hgb Hct MCV MCH MCHC RDW Plt Count ESR 67 H PT INR APTT Sodium Potassium Chloride Carbon Dioxide Anion Gap BUN Creatinine Est GFR ( Amer) Est GFR (Non-Af Amer) POC Glucose (mg/dL) 191 H 126 H Random Glucose Hemoglobin A1c Calcium Total Bilirubin AST ALT Alkaline Phosphatase Total Protein Albumin Globulin Albumin/Globulin Ratio Triglycerides Cholesterol LDL Cholesterol Direct HDL Cholesterol Thyroxine (T4) Total T3 TSH 3rd Generation Urine Color Urine Clarity Urine pH Ur Specific [place] Urine Protein Urine Glucose (UA) Urine Ketones Urine Blood Urine Nitrate Urine Bilirubin Urine Urobilinogen Ur Leukocyte Esterase Urine RBC (Auto) Urine Microscopic WBC Ur Squamous Epith Cells Hyaline Casts reviewed J.P. - Imaging and Cardiology Chest x-ray Status: Report reviewed by me (J.P.) Additional comment: L Ext U-S, L Foot X-Ray, Tibia.Fibula X-Ray, and Echo, all reviewed J.P. Assessment & Plan (1) Cellulitis of left lower extremity Status: Acute Priority: High (2) Diabetes mellitus Status: Chronic Priority: High (3) CKD (chronic kidney disease) Status: Acute (4) Hypertension Status: Chronic Priority: Medium (5) Hypothyroidism Status: Chronic Priority: Medium (6) Morbid obesity Status: Chronic Priority: High (7) ARTUR (obstructive sleep apnea) Status: Chronic Priority: High (8) Anxiety Status: Chronic Priority: Medium - Assessment and Plan (Free Text) Plan: F/U leg Wound C-S, U C-S, continue Zosyn, Catapress, Heparin, Morphine, Insulin , Singulair, Duoneb, Xanax and rest of Tx.Podiatry, Renal and ID consult appreciated. - Date & Time Date: 08/09/17 Time: 14:30
[2017-08-10] MEDS: Levothyroxine 112 MCG TAB PO SCH (05:52)
[2017-08-10] MEDS: Fluticasone-Salmeterol 250-50mcg Diskus IH SCH ×2 (08:59→16:26)
[2017-08-10] MEDS: Insulin Lispro (humaLOG) 100 Units/ml Inj SC SCH ×3 (09:00→17:28)
[2017-08-10] MEDS: Insulin Detemir 100 Units/ml Inj SC SCH ×2 (09:01→21:41)
[2017-08-10] MEDS: Pantoprazole 20 mg EC Tab PO SCH (09:01)
[2017-08-10] MEDS: Omega-3-Acid Ethyl Esters 1 GM Cap PO SCH (09:01)
--- NOTE | 2017-08-10 09:12 | CP.PCM.PN ---
Subjective - Date & Time of Evaluation Date of Evaluation: 08/10/17 Time of Evaluation: 09:10 - Subjective Subjective: RENAL FOLLOW UP S: pt seen and examined, denies n/v o: vss gen: nad sclera: anicteric op: clear neck: supple cv: +s1+s2 lungs: cta b/l abd: soft ext: non pitting edema neuro: A+OX3 psych: nml affect skin: Dressing on LLE imp: ARF/ CKD stage 4/diabetic kidney disease II/ hypertensive kidney diseae/ morbid obesity/ anemia of renal disease / secondary hyperparathyroidism/ cellulitis Has known advanced CKD, slightly worse that prior - likely multifactorial diabetic kidney disease + htn + obesity. will f/u on labs renal US reviewed has significant proteinuria hold marcie/arb for now in light of ABLAN will monitor continue renvela f/u pth level dose abx for reduced eGFR Objective - Vital Signs/Intake and Output Vital Signs (last 24 hours): Temp Pulse Resp BP Pulse Ox 98 F 85 20 140/68 95 08/10/17 00:18 08/10/17 09:00 08/10/17 00:18 08/10/17 09:00 08/10/17 00:18 - Medications Medications: Current Medications Albuterol/Ipratropium (Duoneb 3 Mg/0.5 Mg (3 Ml) Ud) 3 ml INH RQ4 PRN PRN Reason: Shortness of Breath Alprazolam (Xanax) 0.5 mg PO HS PRN PRN Reason: Insomnia Stop: 08/16/17 01:53 Aspirin (Ecotrin) 81 mg PO DAILY [facility] Last Admin: 08/10/17 09:00 Dose: 81 mg Calcitriol (Rocaltrol) 0.5 mcg PO DAILY [facility] Last Admin: 08/10/17 09:01 Dose: 0.5 mcg Clonidine HCl (Catapres) 0.2 mg PO TID [facility] Last Admin: 08/10/17 09:00 Dose: 0.2 mg Heparin Sodium (Porcine) (Heparin) 5,000 units SC Q12 [facility] PRN Reason: Protocol Last Admin: 08/09/17 22:08 Dose: Not Given Daptomycin 600 mg/ Sodium (Chloride) 100 mls @ 100 mls/hr IV Q48H [facility] PRN Reason: Protocol Stop: 08/14/17 15:46 Last Admin: 08/09/17 20:40 Dose: 100 mls/hr Piperacillin Sod/Tazobactam (Sod 2.25 gm/ Sodium Chloride) 100 mls @ 100 mls/ hr IVPB Q12 [facility] PRN Reason: Protocol Last Admin: 08/10/17 09:09 Dose: 100 mls/hr Insulin Detemir (Levemir) 15 units SC Q12 [facility] Last Admin: 08/10/17 09:01 Dose: 15 unit Insulin Human Lispro (Humalog) 20 units SC TIDAC [facility] Last Admin: 08/10/17 09:00 Dose: 20 unit Levothyroxine Sodium (Synthroid) 112 mcg PO DAILY@0630 [facility] Last Admin: 08/10/17 05:52 Dose: 112 mcg Montelukast Sodium (Singulair) 10 mg PO HS [facility] Last Admin: 08/09/17 22:50 Dose: Not Given Morphine Sulfate (Morphine) 2 mg IVP Q4 PRN PRN Reason: Pain, moderate (4-7) [id number] Ethyl Esters (Lovaza) 1 gm PO DAILY [facility] Last Admin: 08/10/17 09:01 Dose: 1 gm Pantoprazole Sodium (Protonix Ec Tab) 20 mg PO DAILY [facility] Last Admin: 08/10/17 09:01 Dose: 20 mg Fluticasone/Salmeterol (Advair Diskus 250/50) 1 puff IH BID [facility] Last Admin: 08/10/17 08:59 Dose: 1 puff Sevelamer HCl (Renagel) 800 mg PO TID [facility] Last Admin: 08/10/17 09:01 Dose: 800 mg Torsemide (Demadex) 20 mg PO BID [facility] Last Admin: 08/10/17 09:00 Dose: 20 mg - Labs Labs: 08/09/17 05:20 08/09/17 05:20 PT 13.4 Seconds (9.8-13.1) H 08/09/17 05:20 INR 1.2 (0.9-1.2) 08/09/17 05:20 APTT 35.4 Seconds (25.6-37.1) 08/09/17 05:20
--- NOTE | 2017-08-10 09:59 | CP.PCM.PN ---
Subjective - Date & Time of Evaluation Date of Evaluation: 08/10/17 Time of Evaluation: 08:00 - Subjective Subjective: Podiatry Progress Note- Dr. Humphries 62 year old male, with a past medical history dyslipidemia, HTN, and renal insufficiency not on dialysis seen and evaluated at bedside for left leg wound secondary to fall. Patient is seen resting comfortably in bed, in NAD, and AA0x3. Reports that he feels better than compared to yesterday. Still has pain to the left leg. Denies nausea, fever, shortness of breath, chest pains, or chills. No other pedal complaints at this time. Objective - Vital Signs/Intake and Output Vital Signs (last 24 hours): Temp Pulse Resp BP Pulse Ox 98 F 85 20 140/68 95 08/10/17 00:18 08/10/17 09:00 08/10/17 00:18 08/10/17 09:00 08/10/17 00:18 - Medications Medications: Current Medications Albuterol/Ipratropium (Duoneb 3 Mg/0.5 Mg (3 Ml) Ud) 3 ml INH RQ4 PRN PRN Reason: Shortness of Breath Alprazolam (Xanax) 0.5 mg PO HS PRN PRN Reason: Insomnia Stop: 08/16/17 01:53 Aspirin (Ecotrin) 81 mg PO DAILY [facility] Last Admin: 08/10/17 09:00 Dose: 81 mg Calcitriol (Rocaltrol) 0.5 mcg PO DAILY [facility] Last Admin: 08/10/17 09:01 Dose: 0.5 mcg Clonidine HCl (Catapres) 0.2 mg PO TID [facility] Last Admin: 08/10/17 09:00 Dose: 0.2 mg Heparin Sodium (Porcine) (Heparin) 5,000 units SC Q12 [facility] PRN Reason: Protocol Last Admin: 08/09/17 22:08 Dose: Not Given Daptomycin 600 mg/ Sodium (Chloride) 100 mls @ 100 mls/hr IV Q48H [facility] PRN Reason: Protocol Stop: 08/14/17 15:46 Last Admin: 08/09/17 20:40 Dose: 100 mls/hr Piperacillin Sod/Tazobactam (Sod 2.25 gm/ Sodium Chloride) 100 mls @ 100 mls/ hr IVPB Q12 [facility] PRN Reason: Protocol Last Admin: 08/10/17 09:09 Dose: 100 mls/hr Insulin Detemir (Levemir) 15 units SC Q12 [facility] Last Admin: 08/10/17 09:01 Dose: 15 unit Insulin Human Lispro (Humalog) 20 units SC TIDAC [facility] Last Admin: 08/10/17 09:00 Dose: 20 unit Levothyroxine Sodium (Synthroid) 112 mcg PO DAILY@0630 [facility] Last Admin: 08/10/17 05:52 Dose: 112 mcg Montelukast Sodium (Singulair) 10 mg PO HS [facility] Last Admin: 08/09/17 22:50 Dose: Not Given Morphine Sulfate (Morphine) 2 mg IVP Q4 PRN PRN Reason: Pain, moderate (4-7) [id number] Ethyl Esters (Lovaza) 1 gm PO DAILY [facility] Last Admin: 08/10/17 09:01 Dose: 1 gm Pantoprazole Sodium (Protonix Ec Tab) 20 mg PO DAILY [facility] Last Admin: 08/10/17 09:01 Dose: 20 mg Fluticasone/Salmeterol (Advair Diskus 250/50) 1 puff IH BID [facility] Last Admin: 08/10/17 08:59 Dose: 1 puff Sevelamer HCl (Renagel) 800 mg PO TID [facility] Last Admin: 08/10/17 09:01 Dose: 800 mg Torsemide (Demadex) 20 mg PO BID [facility] Last Admin: 08/10/17 09:00 Dose: 20 mg - Labs Labs: 08/09/17 05:20 08/09/17 05:20 PT 13.4 Seconds (9.8-13.1) H 08/09/17 05:20 INR 1.2 (0.9-1.2) 08/09/17 05:20 APTT 35.4 Seconds (25.6-37.1) 08/09/17 05:20 - Constitutional Appears: Well, Non-toxic, No Acute Distress - Extremities Exam Additional comments: Vasc: lightly palpable pedal pulses, nonpalpable PT pulses due to edema, CFT < 3 sec to all digits, TG warm to warm, nonpitting edema to the Neuro: protective diminished and grossly intact Derm: blister measuring approximately 2 x 2 cm noted to the medial aspect of anterior daily ulceration with serous filled fluid, ulceration noted to the anterior daily measuring 5cm x 6cm x 0.2cm with surrounding erythema and superficial open lesions with serous drainage. Wound base is mainly fibrous with central necrotic eschar, mild fluctuance, no abscess noted, no purulent drainage, no ascending cellulitis, bruising noted to periwound skin left foot dried hematoma noted to plantar medial heel Ortho: pain on palpation to anterior daily - Neurological Exam Neurological Exam: Alert, Awake, Oriented x3 - Psychiatric Exam Psychiatric exam: Normal Affect, Normal Mood Assessment and Plan - Assessment and Plan (Free Text) Assessment: 62 y/o male with pmhx of dyslipidemia, HTN, and renal insufficiency but not on dialysis for left leg ulceration secondary to fall with cellulitis Plan: Patient evaluated and chart reviewed Discussed in detail with attending Dr. Humphries Labs and vitals reviewed; WBC trending down, WBC 10.1 Xray- no evidence of foreign body, soft tissue emphysema US negative for DVT Cleansed ulceration with betadine, dsd, and kerlix Podiatry will continue local wound care Wound culture pending c/w abx per ID Podiatry will continue to follow while patient remains in house
--- NOTE | 2017-08-10 12:50 | CP.PCM.PN ---
Subjective - Date & Time of Evaluation Date of Evaluation: 08/10/17 Time of Evaluation: 12:49 - Subjective Subjective: ID Note- Pt. seen and examined today. pt. denies any fever or chills and states his LLE swelling is less and pain is less. patient again concerned with sodium content of his IV antibiotics. he states he does not wish to have any IV antibiotics if thery are made in NS. explained to patient at length that most antibiotics are either made with NS or in D5 and we have no control over how abx are made. also explained to patient that his antibiotics are dosed renally and his soium level is normal and being monitored daily. spoke with pharmacy ad linezolid can be made in D5 instead of NS. pt. states he has swelling in his left hand where he has the IVL and he thinks it's from NS in his IV fluids. explained to patient that he has left hand swelling bc his left IVL is infiltrated and needs to be replaced. his right hand no swelling. Objective - Vital Signs/Intake and Output Vital Signs (last 24 hours): Temp Pulse Resp BP Pulse Ox 98.5 F 85 18 159/81 H 85 L 08/10/17 08:00 08/10/17 09:00 08/10/17 08:00 08/10/17 12:00 08/10/17 12:00 - Medications Medications: Current Medications Albuterol/Ipratropium (Duoneb 3 Mg/0.5 Mg (3 Ml) Ud) 3 ml INH RQ4 PRN PRN Reason: Shortness of Breath Alprazolam (Xanax) 0.5 mg PO HS PRN PRN Reason: Insomnia Stop: 08/16/17 01:53 Aspirin (Ecotrin) 81 mg PO DAILY [facility] Last Admin: 08/10/17 09:00 Dose: 81 mg Calcitriol (Rocaltrol) 0.5 mcg PO DAILY [facility] Last Admin: 08/10/17 09:01 Dose: 0.5 mcg Clonidine HCl (Catapres) 0.2 mg PO TID [facility] Last Admin: 08/10/17 09:00 Dose: 0.2 mg Heparin Sodium (Porcine) (Heparin) 5,000 units SC Q12 [facility] PRN Reason: Protocol Last Admin: 08/10/17 10:37 Dose: Not Given Daptomycin 600 mg/ Sodium (Chloride) 100 mls @ 100 mls/hr IV Q48H [facility] PRN Reason: Protocol Stop: 08/14/17 15:46 Last Admin: 08/09/17 20:40 Dose: 100 mls/hr Piperacillin Sod/Tazobactam (Sod 2.25 gm/ Sodium Chloride) 100 mls @ 100 mls/ hr IVPB Q12 [facility] PRN Reason: Protocol Last Admin: 08/10/17 09:09 Dose: 100 mls/hr Insulin Detemir (Levemir) 15 units SC Q12 [facility] Last Admin: 08/10/17 09:01 Dose: 15 unit Insulin Human Lispro (Humalog) 20 units SC TIDAC [facility] Last Admin: 08/10/17 09:00 Dose: 20 unit Levothyroxine Sodium (Synthroid) 112 mcg PO DAILY@0630 [facility] Last Admin: 08/10/17 05:52 Dose: 112 mcg Montelukast Sodium (Singulair) 10 mg PO HS [facility] Last Admin: 08/09/17 22:50 Dose: Not Given Morphine Sulfate (Morphine) 2 mg IVP Q4 PRN PRN Reason: Pain, moderate (4-7) [id number] Ethyl Esters (Lovaza) 1 gm PO DAILY [facility] Last Admin: 08/10/17 09:01 Dose: 1 gm Pantoprazole Sodium (Protonix Ec Tab) 20 mg PO DAILY [facility] Last Admin: 08/10/17 09:01 Dose: 20 mg Fluticasone/Salmeterol (Advair Diskus 250/50) 1 puff IH BID [facility] Last Admin: 08/10/17 08:59 Dose: 1 puff Sevelamer HCl (Renagel) 800 mg PO TID [facility] Last Admin: 08/10/17 09:01 Dose: 800 mg Torsemide (Demadex) 20 mg PO BID [facility] Last Admin: 08/10/17 09:00 Dose: 20 mg - Labs Labs: - Additional Findings Additional findings: - Constitutional Appears: No Acute Distress - Head Exam Head Exam: ATRAUMATIC - Eye Exam Eye Exam: EOMI - ENT Exam ENT Exam: Normal Oropharynx - Neck Exam Neck exam: Positive for: Full Rom - Respiratory Exam Respiratory Exam: Clear to Auscultation Bilateral, NORMAL BREATHING PATTERN - Cardiovascular Exam Cardiovascular Exam: RRR, +S1, +S2 - GI/Abdominal Exam GI & Abdominal Exam: Normal Bowel Sounds, Soft Additional comments: NT, ND - Extremities Exam Additional comments: LLE frontal region with less edema and erythema and warmth compared to yesterday, and midportion with black eschar , clear fluid discharge, no malodor. dorsal right foot small closed dry ulcer and one small round dry ulcer on the left frontal plantar region RLE also with some dark discoloration of the skin in frontal RLE but no swelling and no discharge - Neurological Exam Neurological exam: Alert, Oriented x 3 Laboratory Results - last 72 hr 08/08/17 08/08/17 08/08/17 21:30 21:30 21:30 WBC 11.3 H RBC 4.00 L Hgb 12.3 D Hct 36.7 MCV 91.7 MCH 30.7 MCHC 33.5 RDW 15.3 H Plt Count 242 MPV 8.4 Neut % (Auto) 71.8 Lymph % (Auto) 16.5 L [place] % (Auto) 6.2 Eos % (Auto) 4.1 H Baso % (Auto) 1.4 Neut # (Auto) 8.1 H Lymph # (Auto) 1.9 [place] # (Auto) 0.7 Eos # (Auto) 0.5 Baso # (Auto) 0.2 ESR PT INR APTT Sodium 144 Potassium 3.6 Chloride 101 Carbon Dioxide 30 Anion Gap 17 BUN 46 H Creatinine 3.9 H Est GFR ( Amer) 19 Est GFR (Non-Af Amer) 16 POC Glucose (mg/dL) Random Glucose 173 H Hemoglobin A1c Lactic Acid 0.8 Calcium 10.1 Phosphorus Total Bilirubin 0.5 AST 48 ALT 58 Alkaline Phosphatase 63 Total Protein 7.2 Albumin 3.8 Globulin 3.4 Albumin/Globulin Ratio 1.1 Triglycerides Cholesterol LDL Cholesterol Direct HDL Cholesterol 25-OH Vitamin D Total Thyroxine (T4) Total T3 TSH 3rd Generation Urine Color Urine Clarity Urine pH Ur Specific Brave Urine Protein Urine Glucose (UA) Urine Ketones Urine Blood Urine Nitrate Urine Bilirubin Urine Urobilinogen Ur Leukocyte Esterase Urine RBC (Auto) Urine Microscopic WBC Ur Squamous Epith Cells Hyaline Casts Ur Random Creatinine U Random Total Protein 08/08/17 08/08/17 08/09/17 21:30 23:47 05:20 WBC 10.1 RBC 3.90 L Hgb 12.3 Hct 36.3 MCV 93.0 MCH 31.4 H MCHC 33.8 RDW 15.6 H Plt Count 226 MPV Neut % (Auto) Lymph % (Auto) [place] % (Auto) Eos % (Auto) Baso % (Auto) Neut # (Auto) Lymph # (Auto) [place] # (Auto) Eos # (Auto) Baso # (Auto) ESR PT 12.8 INR 1.2 APTT 35.7 Sodium Potassium Chloride Carbon Dioxide Anion Gap BUN Creatinine Est GFR ( Amer) Est GFR (Non-Af Amer) POC Glucose (mg/dL) 147 H Random Glucose Hemoglobin A1c Lactic Acid Calcium Phosphorus Total Bilirubin AST ALT Alkaline Phosphatase Total Protein Albumin Globulin Albumin/Globulin Ratio Triglycerides Cholesterol LDL Cholesterol Direct HDL Cholesterol 25-OH Vitamin D Total Thyroxine (T4) Total T3 TSH 3rd Generation Urine Color Urine Clarity Urine pH Ur Specific Brave Urine Protein Urine Glucose (UA) Urine Ketones Urine Blood Urine Nitrate Urine Bilirubin Urine Urobilinogen Ur Leukocyte Esterase Urine RBC (Auto) Urine Microscopic WBC Ur Squamous Epith Cells Hyaline Casts Ur Random Creatinine U Random Total Protein 08/09/17 08/09/17 08/09/17 05:20 05:20 05:20 WBC RBC Hgb Hct MCV MCH MCHC RDW Plt Count MPV Neut % (Auto) Lymph % (Auto) [place] % (Auto) Eos % (Auto) Baso % (Auto) Neut # (Auto) Lymph # (Auto) [place] # (Auto) Eos # (Auto) Baso # (Auto) ESR PT 13.4 H INR 1.2 APTT 35.4 Sodium 142 Potassium 3.7 Chloride 102 Carbon Dioxide 27 Anion Gap 17 BUN 45 H Creatinine 3.9 H Est GFR ( Amer) 19 Est GFR (Non-Af Amer) 16 POC Glucose (mg/dL) Random Glucose 201 H Hemoglobin A1c 7.0 H Lactic Acid Calcium 9.9 Phosphorus Total Bilirubin 0.5 AST 37 ALT 56 Alkaline Phosphatase 51 Total Protein 6.6 Albumin 3.5 Globulin 3.1 Albumin/Globulin Ratio 1.2 Triglycerides 112 Cholesterol 138 LDL Cholesterol Direct 76 HDL Cholesterol 33 25-OH Vitamin D Total Thyroxine (T4) 8.85 Total T3 0.716 L TSH 3rd Generation Urine Color Urine Clarity Urine pH Ur Specific Brave Urine Protein Urine Glucose (UA) Urine Ketones Urine Blood Urine Nitrate Urine Bilirubin Urine Urobilinogen Ur Leukocyte Esterase Urine RBC (Auto) Urine Microscopic WBC Ur Squamous Epith Cells Hyaline Casts Ur Random Creatinine U Random Total Protein 08/09/17 08/09/17 08/09/17 05:28 07:43 08:05 WBC RBC Hgb Hct MCV MCH MCHC RDW Plt Count MPV Neut % (Auto) Lymph % (Auto) [place] % (Auto) Eos % (Auto) Baso % (Auto) Neut # (Auto) Lymph # (Auto) [place] # (Auto) Eos # (Auto) Baso # (Auto) ESR PT INR APTT Sodium Potassium Chloride Carbon Dioxide Anion Gap BUN Creatinine Est GFR ( Amer) Est GFR (Non-Af Amer) POC Glucose (mg/dL) 204 H Random Glucose Hemoglobin A1c Lactic Acid Calcium Phosphorus Total Bilirubin AST ALT Alkaline Phosphatase Total Protein Albumin Globulin Albumin/Globulin Ratio Triglycerides Cholesterol LDL Cholesterol Direct HDL Cholesterol 25-OH Vitamin D Total Thyroxine (T4) Total T3 TSH 3rd Generation 2.79 Urine Color Yellow Urine Clarity Clear Urine pH 6.0 Ur Specific Brave 1.014 Urine Protein >=500 Urine Glucose (UA) 150 Urine Ketones Negative Urine Blood Small Urine Nitrate Negative Urine Bilirubin Negative Urine Urobilinogen 0.2-1.0 Ur Leukocyte Esterase Neg Urine RBC (Auto) 1 Urine Microscopic WBC 2 Ur Squamous Epith Cells < 1 Hyaline Casts 0-2 Ur Random Creatinine U Random Total Protein 08/09/17 08/09/17 08/09/17 11:01 12:21 15:35 WBC RBC Hgb Hct MCV MCH MCHC RDW Plt Count MPV Neut % (Auto) Lymph % (Auto) [place] % (Auto) Eos % (Auto) Baso % (Auto) Neut # (Auto) Lymph # (Auto) [place] # (Auto) Eos # (Auto) Baso # (Auto) ESR PT INR APTT Sodium Potassium Chloride Carbon Dioxide Anion Gap BUN Creatinine Est GFR ( Amer) Est GFR (Non-Af Amer) POC Glucose (mg/dL) 184 H 191 H Random Glucose Hemoglobin A1c Lactic Acid Calcium Phosphorus Total Bilirubin AST ALT Alkaline Phosphatase Total Protein Albumin Globulin Albumin/Globulin Ratio Triglycerides Cholesterol LDL Cholesterol Direct HDL Cholesterol 25-OH Vitamin D Total Thyroxine (T4) Total T3 TSH 3rd Generation Urine Color Urine Clarity Urine pH Ur Specific Brave Urine Protein Urine Glucose (UA) Urine Ketones Urine Blood Urine Nitrate Urine Bilirubin Urine Urobilinogen Ur Leukocyte Esterase Urine RBC (Auto) Urine Microscopic WBC Ur Squamous Epith Cells Hyaline Casts Ur Random Creatinine 93.6 U Random Total Protein 08/09/17 08/09/17 08/10/17 17:24 21:31 00:00 WBC RBC Hgb Hct MCV MCH MCHC RDW Plt Count MPV Neut % (Auto) Lymph % (Auto) [place] % (Auto) Eos % (Auto) Baso % (Auto) Neut # (Auto) Lymph # (Auto) [place] # (Auto) Eos # (Auto) Baso # (Auto) ESR 67 H PT INR APTT Sodium Potassium Chloride Carbon Dioxide Anion Gap BUN Creatinine Est GFR ( Amer) Est GFR (Non-Af Amer) POC Glucose (mg/dL) 126 H Random Glucose Hemoglobin A1c Lactic Acid Calcium Phosphorus Total Bilirubin AST ALT Alkaline Phosphatase Total Protein Albumin Globulin Albumin/Globulin Ratio Triglycerides Cholesterol LDL Cholesterol Direct HDL Cholesterol 25-OH Vitamin D Total Thyroxine (T4) Total T3 TSH 3rd Generation Urine Color Urine Clarity Urine pH Ur Specific Brave Urine Protein Urine Glucose (UA) Urine Ketones Urine Blood Urine Nitrate Urine Bilirubin Urine Urobilinogen Ur Leukocyte Esterase Urine RBC (Auto) Urine Microscopic WBC Ur Squamous Epith Cells Hyaline Casts Ur Random Creatinine U Random Total Protein 375 08/10/17 08/10/17 08/10/17 05:40 05:40 05:50 WBC RBC Hgb Hct MCV MCH MCHC RDW Plt Count MPV Neut % (Auto) Lymph % (Auto) [place] % (Auto) Eos % (Auto) Baso % (Auto) Neut # (Auto) Lymph # (Auto) [place] # (Auto) Eos # (Auto) Baso # (Auto) ESR PT INR APTT Sodium Potassium Chloride Carbon Dioxide Anion Gap BUN Creatinine Est GFR ( Amer) Est GFR (Non-Af Amer) POC Glucose (mg/dL) 211 H Random Glucose Hemoglobin A1c Lactic Acid Calcium Phosphorus 4.3 Total Bilirubin AST ALT Alkaline Phosphatase Total Protein Albumin Globulin Albumin/Globulin Ratio Triglycerides Cholesterol LDL Cholesterol Direct HDL Cholesterol 25-OH Vitamin D Total < 12.8 L Thyroxine (T4) Total T3 TSH 3rd Generation Urine Color Urine Clarity Urine pH Ur Specific Brave Urine Protein Urine Glucose (UA) Urine Ketones Urine Blood Urine Nitrate Urine Bilirubin Urine Urobilinogen Ur Leukocyte Esterase Urine RBC (Auto) Urine Microscopic WBC Ur Squamous Epith Cells Hyaline Casts Ur Random Creatinine U Random Total Protein 08/10/17 11:09 WBC RBC Hgb Hct MCV MCH MCHC RDW Plt Count MPV Neut % (Auto) Lymph % (Auto) [place] % (Auto) Eos % (Auto) Baso % (Auto) Neut # (Auto) Lymph # (Auto) [place] # (Auto) Eos # (Auto) Baso # (Auto) ESR PT INR APTT Sodium Potassium Chloride Carbon Dioxide Anion Gap BUN Creatinine Est GFR ( Amer) Est GFR (Non-Af Amer) POC Glucose (mg/dL) 201 H Random Glucose Hemoglobin A1c Lactic Acid Calcium Phosphorus Total Bilirubin AST ALT Alkaline Phosphatase Total Protein Albumin Globulin Albumin/Globulin Ratio Triglycerides Cholesterol LDL Cholesterol Direct HDL Cholesterol 25-OH Vitamin D Total Thyroxine (T4) Total T3 TSH 3rd Generation Urine Color Urine Clarity Urine pH Ur Specific Brave Urine Protein Urine Glucose (UA) Urine Ketones Urine Blood Urine Nitrate Urine Bilirubin Urine Urobilinogen Ur Leukocyte Esterase Urine RBC (Auto) Urine Microscopic WBC Ur Squamous Epith Cells Hyaline Casts Ur Random Creatinine U Random Total Protein Microbiology 08/08/17 23:40 Leg - Left Gram Stain - Final 08/08/17 23:40 Leg - Left Wound Culture - Preliminary NO GROWTH AFTER 24 HOURS 08/09/17 08:05 Urine,Random Urine Culture - Final No Growth (<1,000 CFU/ML) 08/08/17 21:30 Blood-Venous Blood Culture - Preliminary NO GROWTH AFTER 24 HOURS Assessment and Plan (1) Cellulitis and abscess of leg Status: Acute (2) Cellulitis of left lower extremity Status: Acute (3) Diabetes mellitus Status: Chronic - Assessment and Plan (Free Text) Assessment: A/P- 62 year old male with DM II, HTn, obesity admitted with LLE cellulitis and eschar. afebrile normal wbc count blood cx- negative LLE wound cx- negative so far ESR-65 plan- advised nurse to change left hand peripheral IVL SUMIT. place new IVL at different site in light of patient's adamant concern regarding NS content in IV zosyn and daptomycin . d/c above 2 antibiotics start IV linezolid 600 mg q12 ( ask pharmacy to make it in D5W). advised pt. his glucose will go high on this but patietn states he prefers to be on d5w solution thena NS and that the insulin will adjust his glucose. all above also d/w patient's PMD . Linezolid also does not need to be dosed renally . monitor platalets while on linezolid. may need vascular studies to ascertain if there is PVD . may need superficial debridement of the LLE eschar by podiatry. All above d/w patient at length and all his questions were answered and he verbalizes full understanding of all above and agrees with above plan of care.
--- NOTE | 2017-08-10 15:28 | CP.PCM.PN ---
Subjective - Date & Time of Evaluation Date of Evaluation: 08/10/17 Time of Evaluation: 08:30 - Subjective Subjective: F/U Cellulitis LLE Pt c/o of pain in the L leg. Objective - Vital Signs/Intake and Output Vital Signs (last 24 hours): Temp Pulse Resp BP Pulse Ox 98.5 F 85 18 159/81 H 85 L 08/10/17 08:00 08/10/17 12:52 08/10/17 08:00 08/10/17 12:52 08/10/17 12:00 - Medications Medications: Current Medications Albuterol/Ipratropium (Duoneb 3 Mg/0.5 Mg (3 Ml) Ud) 3 ml INH RQ4 PRN PRN Reason: Shortness of Breath Alprazolam (Xanax) 0.5 mg PO HS PRN PRN Reason: Insomnia Stop: 08/16/17 01:53 Aspirin (Ecotrin) 81 mg PO DAILY [facility] Last Admin: 08/10/17 09:00 Dose: 81 mg Calcitriol (Rocaltrol) 0.5 mcg PO DAILY [facility] Last Admin: 08/10/17 09:01 Dose: 0.5 mcg Clonidine HCl (Catapres) 0.2 mg PO TID [facility] Last Admin: 08/10/17 12:52 Dose: 0.2 mg Heparin Sodium (Porcine) (Heparin) 5,000 units SC Q12 [facility] PRN Reason: Protocol Last Admin: 08/10/17 10:37 Dose: Not Given Linezolid (Zyvox 600mg/300ml D5w) 600 mg in 300 mls @ 300 mls/hr IVPB Q12 [facility] PRN Reason: Protocol Insulin Detemir (Levemir) 15 units SC Q12 [facility] Last Admin: 08/10/17 09:01 Dose: 15 unit Insulin Human Lispro (Humalog) 20 units SC TIDAC [facility] Last Admin: 08/10/17 12:51 Dose: 20 unit Levothyroxine Sodium (Synthroid) 112 mcg PO DAILY@0630 [facility] Last Admin: 08/10/17 05:52 Dose: 112 mcg Montelukast Sodium (Singulair) 10 mg PO HS [facility] Last Admin: 08/09/17 22:50 Dose: Not Given Morphine Sulfate (Morphine) 2 mg IVP Q4 PRN PRN Reason: Pain, moderate (4-7) Gqveg-9-[id number] Ethyl Esters (Lovaza) 1 gm PO DAILY [facility] Last Admin: 08/10/17 09:01 Dose: 1 gm Pantoprazole Sodium (Protonix Ec Tab) 20 mg PO DAILY [facility] Last Admin: 08/10/17 09:01 Dose: 20 mg Fluticasone/Salmeterol (Advair Diskus 250/50) 1 puff IH BID [facility] Last Admin: 08/10/17 08:59 Dose: 1 puff Sevelamer HCl (Renagel) 800 mg PO TID [facility] Last Admin: 08/10/17 12:51 Dose: 800 mg Torsemide (Demadex) 20 mg PO BID [facility] Last Admin: 08/10/17 09:00 Dose: 20 mg - Labs Labs: 08/09/17 05:20 08/09/17 05:20 PT 13.4 Seconds (9.8-13.1) H 08/09/17 05:20 INR 1.2 (0.9-1.2) 08/09/17 05:20 APTT 35.4 Seconds (25.6-37.1) 08/09/17 05:20 - Constitutional Appears: No Acute Distress - Head Exam Head Exam: NORMAL INSPECTION - Eye Exam Eye Exam: PERRL - ENT Exam ENT Exam: Normal Exam - Neck Exam Neck Exam: Normal Inspection - Respiratory Exam Respiratory Exam: Clear to Ausculation Bilateral - Cardiovascular Exam Cardiovascular Exam: REGULAR RHYTHM - GI/Abdominal Exam GI & Abdominal Exam: Soft, Normal Bowel Sounds Additional comments: obese - Extremities Exam Additional comments: Left leg swelling tenderness , dressing in Place - Back Exam Back Exam: tenderness - Neurological Exam Neurological Exam: Alert, CN II-XII Intact Additional comments: no focal/motor sensory deficit - Psychiatric Exam Psychiatric exam: Anxious - Skin Skin Exam: Warm Assessment and Plan (1) Cellulitis of left lower extremity Status: Acute (2) Anxiety Status: Chronic (3) Diabetes mellitus Status: Chronic (4) Hypertension Status: Chronic (5) Hypothyroidism Status: Chronic (6) Morbid obesity Status: Chronic (7) ARTUR (obstructive sleep apnea) Status: Chronic - Assessment and Plan (Free Text) Plan: Pt refused Zosyn, and Daptomycin for " amount of Na in the infusion" ID switch Pt to Zyvox, monitor BS.
[2017-08-10] MEDS ORDERED: Acetaminophen 650mg/20.3ml solution UD PO PRN (16:19)
[2017-08-10] MEDS: Linezolid 600 mg in D5W 300 ml 600 MG/300 ML BAG IVPB SCH (20:53)
[2017-08-11 06:23] LABS: ALBUMIN 3.6 g/dL (3.5-5.0); CALCIUM 9.3 mg/dL (8.4-10.2)
[2017-08-11 06:30] LABS: HEMOGLOBIN 12.1 g/dL (12.0-18.0); MEAN CELL VOLUME 91.7 fl (80.0-94.0); MEAN CORPUSCULAR HEMOGLOBIN 31.3 pg (27.0-31.0); MEAN CORPUSCULAR HGB CONC 34.2 g/dL (33.0-37.0); RBC 3.85 Mil/uL (4.40-5.90); RED CELL DISTRIBUTION WIDTH 15.3 % (11.5-14.5); WHITE BLOOD COUNT 8.8 K/uL (4.8-10.8)
[2017-08-11] MEDS: Levothyroxine 112 MCG TAB PO SCH (06:31)
--- NOTE | 2017-08-11 08:22 | CP.PCM.PN ---
Subjective - Date & Time of Evaluation Date of Evaluation: 08/11/17 Time of Evaluation: 08:22 Objective - Vital Signs/Intake and Output Vital Signs (last 24 hours): Temp Pulse Resp BP Pulse Ox 97.1 F L 77 19 153/79 H 97 08/11/17 08:04 08/11/17 08:04 08/11/17 08:04 08/11/17 08:04 08/11/17 08:04 - Medications Medications: Current Medications Acetaminophen (Tylenol 325mg Tab) 650 mg PO Q4 PRN PRN Reason: Fever >100.4 F Last Admin: 08/10/17 16:39 Dose: 650 mg Acetaminophen (Tylenol 325mg Tab) 650 mg PO Q4 PRN PRN Reason: Pain, moderate (4-7) Albuterol/Ipratropium (Duoneb 3 Mg/0.5 Mg (3 Ml) Ud) 3 ml INH RQ4 PRN PRN Reason: Shortness of Breath Alprazolam (Xanax) 0.5 mg PO HS PRN PRN Reason: Insomnia Stop: 08/16/17 01:53 Aspirin (Ecotrin) 81 mg PO DAILY [facility] Last Admin: 08/10/17 09:00 Dose: 81 mg Calcitriol (Rocaltrol) 0.5 mcg PO DAILY [facility] Last Admin: 08/10/17 09:01 Dose: 0.5 mcg Clonidine HCl (Catapres) 0.2 mg PO TID [facility] Last Admin: 08/10/17 16:25 Dose: 0.2 mg Heparin Sodium (Porcine) (Heparin) 5,000 units SC Q12 [facility] PRN Reason: Protocol Last Admin: 08/10/17 21:16 Dose: Not Given Linezolid (Zyvox 600mg/300ml D5w) 600 mg in 300 mls @ 300 mls/hr IVPB Q12 [facility] PRN Reason: Protocol Last Admin: 08/10/17 20:53 Dose: 300 mls/hr Insulin Detemir (Levemir) 15 units SC Q12 [facility] Last Admin: 08/10/17 21:41 Dose: 15 unit Insulin Human Lispro (Humalog) 20 units SC TIDAC [facility] Last Admin: 08/10/17 17:28 Dose: 20 unit Levothyroxine Sodium (Synthroid) 112 mcg PO DAILY@0630 [facility] Last Admin: 08/11/17 06:31 Dose: 112 mcg Montelukast Sodium (Singulair) 10 mg PO HS [facility] Last Admin: 08/10/17 21:00 Dose: 10 mg Morphine Sulfate (Morphine) 2 mg IVP Q4 PRN PRN Reason: Pain, moderate (4-7) [id number] Ethyl Esters (Lovaza) 1 gm PO DAILY [facility] Last Admin: 08/10/17 09:01 Dose: 1 gm Pantoprazole Sodium (Protonix Ec Tab) 20 mg PO DAILY [facility] Last Admin: 08/10/17 09:01 Dose: 20 mg Fluticasone/Salmeterol (Advair Diskus 250/50) 1 puff IH BID [facility] Last Admin: 08/10/17 16:26 Dose: 1 puff Sevelamer HCl (Renagel) 800 mg PO TID [facility] Last Admin: 08/10/17 17:29 Dose: 800 mg Torsemide (Demadex) 20 mg PO BID [facility] Last Admin: 08/10/17 16:26 Dose: 20 mg - Labs Labs: 08/11/17 05:40 08/11/17 05:40 PT 13.4 Seconds (9.8-13.1) H 08/09/17 05:20 INR 1.2 (0.9-1.2) 08/09/17 05:20 APTT 35.4 Seconds (25.6-37.1) 08/09/17 05:20
--- NOTE | 2017-08-11 08:25 | CP.PCM.PN ---
Subjective - Date & Time of Evaluation Date of Evaluation: 08/11/17 Time of Evaluation: 08:24 - Subjective Subjective: RENAL FOLLOW UP S: pt seen and examined, denies n/v. o: vss gen: nad sclera: anicteric op: clear neck: supple cv: +s1+s2 lungs: cta b/l abd: soft ext: non pitting edema neuro: A+OX3 psych: nml affect skin: Dressing on LLE imp: ARF/ CKD stage 4/diabetic kidney disease II/ hypertensive kidney diseae/ morbid obesity/ anemia of renal disease / secondary hyperparathyroidism/ cellulitis Has known advanced CKD, slightly worse that prior - likely multifactorial diabetic kidney disease + htn + obesity. cr mildly improved continue to monitor has significant proteinuria hold marcie/arb for now in light of ALBAN will monitor, will start low dose norvasc for bp continue renvela f/u pth level dose abx for reduced eGFR, attempted to explain to pt that he was only getting minimal amount of sodium from the abx as the iv solutions are quite small. Objective - Vital Signs/Intake and Output Vital Signs (last 24 hours): Temp Pulse Resp BP Pulse Ox 97.1 F L 77 19 153/79 H 97 08/11/17 08:04 08/11/17 08:04 08/11/17 08:04 08/11/17 08:04 08/11/17 08:04 - Medications Medications: Current Medications Acetaminophen (Tylenol 325mg Tab) 650 mg PO Q4 PRN PRN Reason: Fever >100.4 F Last Admin: 08/10/17 16:39 Dose: 650 mg Acetaminophen (Tylenol 325mg Tab) 650 mg PO Q4 PRN PRN Reason: Pain, moderate (4-7) Albuterol/Ipratropium (Duoneb 3 Mg/0.5 Mg (3 Ml) Ud) 3 ml INH RQ4 PRN PRN Reason: Shortness of Breath Alprazolam (Xanax) 0.5 mg PO HS PRN PRN Reason: Insomnia Stop: 08/16/17 01:53 Aspirin (Ecotrin) 81 mg PO DAILY [facility] Last Admin: 08/10/17 09:00 Dose: 81 mg Calcitriol (Rocaltrol) 0.5 mcg PO DAILY [facility] Last Admin: 08/10/17 09:01 Dose: 0.5 mcg Clonidine HCl (Catapres) 0.2 mg PO TID [facility] Last Admin: 08/10/17 16:25 Dose: 0.2 mg Heparin Sodium (Porcine) (Heparin) 5,000 units SC Q12 [facility] PRN Reason: Protocol Last Admin: 08/10/17 21:16 Dose: Not Given Linezolid (Zyvox 600mg/300ml D5w) 600 mg in 300 mls @ 300 mls/hr IVPB Q12 [facility] PRN Reason: Protocol Last Admin: 08/10/17 20:53 Dose: 300 mls/hr Insulin Detemir (Levemir) 15 units SC Q12 [facility] Last Admin: 08/10/17 21:41 Dose: 15 unit Insulin Human Lispro (Humalog) 20 units SC TIDAC [facility] Last Admin: 08/10/17 17:28 Dose: 20 unit Levothyroxine Sodium (Synthroid) 112 mcg PO DAILY@0630 [facility] Last Admin: 08/11/17 06:31 Dose: 112 mcg Montelukast Sodium (Singulair) 10 mg PO HS [facility] Last Admin: 08/10/17 21:00 Dose: 10 mg Morphine Sulfate (Morphine) 2 mg IVP Q4 PRN PRN Reason: Pain, moderate (4-7) Viffs-3-Qaig Ethyl Esters (Lovaza) 1 gm PO DAILY [facility] Last Admin: 08/10/17 09:01 Dose: 1 gm Pantoprazole Sodium (Protonix Ec Tab) 20 mg PO DAILY [facility] Last Admin: 08/10/17 09:01 Dose: 20 mg Fluticasone/Salmeterol (Advair Diskus 250/50) 1 puff IH BID [facility] Last Admin: 08/10/17 16:26 Dose: 1 puff Sevelamer HCl (Renagel) 800 mg PO TID [facility] Last Admin: 08/10/17 17:29 Dose: 800 mg Torsemide (Demadex) 20 mg PO BID [facility] Last Admin: 08/10/17 16:26 Dose: 20 mg - Labs Labs: 08/11/17 05:40 08/11/17 05:40 PT 13.4 Seconds (9.8-13.1) H 08/09/17 05:20 INR 1.2 (0.9-1.2) 08/09/17 05:20 APTT 35.4 Seconds (25.6-37.1) 08/09/17 05:20
[2017-08-11] MEDS: Fluticasone-Salmeterol 250-50mcg Diskus IH SCH ×2 (08:51→16:01)
[2017-08-11] MEDS: Omega-3-Acid Ethyl Esters 1 GM Cap PO SCH (08:55)
[2017-08-11] MEDS: Insulin Lispro (humaLOG) 100 Units/ml Inj SC SCH ×3 (08:55→16:02)
[2017-08-11] MEDS: Linezolid 600 mg in D5W 300 ml 600 MG/300 ML BAG IVPB SCH (08:57)
[2017-08-11] MEDS: Pantoprazole 20 mg EC Tab PO SCH (08:57)
--- NOTE | 2017-08-11 11:53 | CP.PCM.PN ---
Subjective - Date & Time of Evaluation Date of Evaluation: 08/11/17 Time of Evaluation: 10:00 - Subjective Subjective: Podiatry Progress Note- Dr. Humphries 62 year old male, with a past medical history dyslipidemia, HTN, and renal insufficiency not on dialysis seen and evaluated at bedside for left leg wound secondary to fall. Patient is seen resting comfortably in bed, in NAD, and AA0x3. Reports that he feels better and less pain. Denies nausea, fever, shortness of breath, chest pains, or chills. Reports that he has worn compression for his legs in the past. No other pedal complaints at this time. Objective - Vital Signs/Intake and Output Vital Signs (last 24 hours): Temp Pulse Resp BP Pulse Ox 97.1 F L 77 19 153/79 H 97 08/11/17 08:04 08/11/17 09:25 08/11/17 08:04 08/11/17 09:25 08/11/17 08:04 - Medications Medications: Current Medications Acetaminophen (Tylenol 325mg Tab) 650 mg PO Q4 PRN PRN Reason: Fever >100.4 F Last Admin: 08/10/17 16:39 Dose: 650 mg Acetaminophen (Tylenol 325mg Tab) 650 mg PO Q4 PRN PRN Reason: Pain, moderate (4-7) Albuterol/Ipratropium (Duoneb 3 Mg/0.5 Mg (3 Ml) Ud) 3 ml INH RQ4 PRN PRN Reason: Shortness of Breath Alprazolam (Xanax) 0.5 mg PO HS PRN PRN Reason: Insomnia Stop: 08/16/17 01:53 Amlodipine Besylate (Norvasc) 2.5 mg PO DAILY [facility] Last Admin: 08/11/17 09:25 Dose: 2.5 mg Aspirin (Ecotrin) 81 mg PO DAILY [facility] Last Admin: 08/11/17 08:53 Dose: 81 mg Calcitriol (Rocaltrol) 0.5 mcg PO DAILY [facility] Last Admin: 08/11/17 08:57 Dose: 0.5 mcg Clonidine HCl (Catapres) 0.2 mg PO TID [facility] Last Admin: 08/11/17 08:52 Dose: 0.2 mg Heparin Sodium (Porcine) (Heparin) 5,000 units SC Q12 [facility] PRN Reason: Protocol Last Admin: 08/11/17 08:50 Dose: Not Given Linezolid (Zyvox 600mg/300ml D5w) 600 mg in 300 mls @ 300 mls/hr IVPB Q12 [facility] PRN Reason: Protocol Last Admin: 08/11/17 08:57 Dose: 300 mls/hr Insulin Detemir (Levemir) 15 units SC Q12 [facility] Last Admin: 08/10/17 21:41 Dose: 15 unit Insulin Human Lispro (Humalog) 20 units SC TIDAC [facility] Last Admin: 08/11/17 08:55 Dose: 15 unit Levothyroxine Sodium (Synthroid) 112 mcg PO DAILY@0630 [facility] Last Admin: 08/11/17 06:31 Dose: 112 mcg Montelukast Sodium (Singulair) 10 mg PO HS [facility] Last Admin: 08/10/17 21:00 Dose: 10 mg Morphine Sulfate (Morphine) 2 mg IVP Q4 PRN PRN Reason: Pain, moderate (4-7) [id number] Ethyl Esters (Lovaza) 1 gm PO DAILY [facility] Last Admin: 08/11/17 08:55 Dose: 1 gm Pantoprazole Sodium (Protonix Ec Tab) 20 mg PO DAILY [facility] Last Admin: 08/11/17 08:57 Dose: 20 mg Fluticasone/Salmeterol (Advair Diskus 250/50) 1 puff IH BID [facility] Last Admin: 08/11/17 08:51 Dose: 1 puff Sevelamer HCl (Renagel) 800 mg PO TID [facility] Last Admin: 08/11/17 08:57 Dose: 800 mg Torsemide (Demadex) 20 mg PO BID [facility] Last Admin: 08/11/17 08:52 Dose: 20 mg - Labs Labs: 08/11/17 05:40 08/11/17 05:40 PT 13.4 Seconds (9.8-13.1) H 08/09/17 05:20 INR 1.2 (0.9-1.2) 08/09/17 05:20 APTT 35.4 Seconds (25.6-37.1) 08/09/17 05:20 - Constitutional Appears: Well, Non-toxic, No Acute Distress - Extremities Exam Extremities Exam: absent: Calf Tenderness Additional comments: Vasc: lightly palpable pedal pulses, nonpalpable PT pulses due to edema, CFT < 3 sec to all digits, TG warm to warm, nonpitting edema to the Neuro: protective diminished and grossly intact Derm: lanced blister yesterday filled with serous drainage again measuring approximately 2 x 2 cm noted to the medial aspect of anterior daily ulceration with serous filled fluid, ulceration noted to the anterior daily measuring 5cm x 6cm x 0.2cm with surrounding erythema and superficial open lesions with serous drainage. Wound base is mainly fibrous with central necrotic eschar, mild fluctuance, no abscess noted, no purulent drainage, no ascending cellulitis, bruising noted to periwound skin left foot dried hematoma noted to plantar medial heel Ortho: pain on palpation to anterior daily - Neurological Exam Neurological Exam: Alert, Awake, Oriented x3 Assessment and Plan - Assessment and Plan (Free Text) Assessment: 62 y/o male with pmhx of dyslipidemia, HTN, and renal insufficiency but not on dialysis for left leg ulceration secondary to fall with cellulitis Plan: Patient evaluated and chart reviewed Discussed in detail with attending Dr. Humphries Labs and vitals reviewed; WBC trending down, WBC 8.8 Xray- no evidence of foreign body, soft tissue emphysema US negative for DVT Cleansed ulceration with betadine, dsd, and kerlix Podiatry will continue local wound care Wound culture pending c/w abx per ID Podiatry will continue to follow while patient remains in house
[2017-08-11 12:32] VITALS: BMI 45.4
[2017-08-11] MEDS: Insulin Detemir 100 Units/ml Inj SC SCH (12:33)
[2017-08-11 15:49] VITALS: BP 152/72; PULSE 79; RESP 20; O2SAT 95
[2017-08-11 18:11] VITALS: TEMP 99.5
--- NOTE | 2017-08-11 18:25 | CP.PCM.PN ---
Objective - Vital Signs/Intake and Output Vital Signs (last 24 hours): Temp Pulse Resp BP Pulse Ox 99.5 F 79 20 152/72 H 95 08/11/17 17:00 08/11/17 17:00 08/11/17 17:00 08/11/17 17:00 08/11/17 17:00 - Medications Medications: Current Medications Acetaminophen (Tylenol 325mg Tab) 650 mg PO Q4 PRN PRN Reason: Fever >100.4 F Last Admin: 08/11/17 15:52 Dose: 650 mg Acetaminophen (Tylenol 325mg Tab) 650 mg PO Q4 PRN PRN Reason: Pain, moderate (4-7) Albuterol/Ipratropium (Duoneb 3 Mg/0.5 Mg (3 Ml) Ud) 3 ml INH RQ4 PRN PRN Reason: Shortness of Breath Alprazolam (Xanax) 0.5 mg PO HS PRN PRN Reason: Insomnia Stop: 08/16/17 01:53 Amlodipine Besylate (Norvasc) 2.5 mg PO DAILY [facility] Last Admin: 08/11/17 09:25 Dose: 2.5 mg Aspirin (Ecotrin) 81 mg PO DAILY [facility] Last Admin: 08/11/17 08:53 Dose: 81 mg Calcitriol (Rocaltrol) 0.5 mcg PO DAILY [facility] Last Admin: 08/11/17 08:57 Dose: 0.5 mcg Clonidine HCl (Catapres) 0.2 mg PO TID [facility] Last Admin: 08/11/17 16:01 Dose: 0.2 mg Heparin Sodium (Porcine) (Heparin) 5,000 units SC Q12 [facility] PRN Reason: Protocol Last Admin: 08/11/17 08:50 Dose: Not Given Linezolid (Zyvox 600mg/300ml D5w) 600 mg in 300 mls @ 300 mls/hr IVPB Q12 [facility] PRN Reason: Protocol Last Admin: 08/11/17 08:57 Dose: 300 mls/hr Insulin Detemir (Levemir) 15 units SC Q12 [facility] Last Admin: 08/11/17 12:33 Dose: 15 unit Insulin Human Lispro (Humalog) 20 units SC TIDAC [facility] Last Admin: 08/11/17 16:02 Dose: 15 unit Levothyroxine Sodium (Synthroid) 112 mcg PO DAILY@0630 [facility] Last Admin: 08/11/17 06:31 Dose: 112 mcg Montelukast Sodium (Singulair) 10 mg PO HS [facility] Last Admin: 08/10/17 21:00 Dose: 10 mg Morphine Sulfate (Morphine) 2 mg IVP Q4 PRN PRN Reason: Pain, moderate (4-7) Pivbs-0-Gsax Ethyl Esters (Lovaza) 1 gm PO DAILY [facility] Last Admin: 08/11/17 08:55 Dose: 1 gm Pantoprazole Sodium (Protonix Ec Tab) 20 mg PO DAILY [facility] Last Admin: 08/11/17 08:57 Dose: 20 mg Fluticasone/Salmeterol (Advair Diskus 250/50) 1 puff IH BID [facility] Last Admin: 08/11/17 16:01 Dose: 1 puff Sevelamer HCl (Renagel) 800 mg PO TID [facility] Last Admin: 08/11/17 16:04 Dose: 800 mg Torsemide (Demadex) 20 mg PO BID [facility] Last Admin: 08/11/17 16:02 Dose: 20 mg - Labs Labs: 08/11/17 05:40 08/11/17 05:40 PT 13.4 Seconds (9.8-13.1) H 08/09/17 05:20 INR 1.2 (0.9-1.2) 08/09/17 05:20 APTT 35.4 Seconds (25.6-37.1) 08/09/17 05:20 Assessment and Plan (1) Cellulitis of left lower extremity Status: Acute (2) Anxiety Status: Chronic (3) Diabetes mellitus Status: Chronic (4) Hypertension Status: Chronic (5) Hypothyroidism Status: Chronic (6) Morbid obesity Status: Chronic (7) ARTUR (obstructive sleep apnea) Status: Chronic
--- NOTE | 2017-08-11 22:14 | CP.PCM.DIS ---
Provider - Provider Date of Admission: 08/08/17 23:27 Attending physician: Shakir Crowder MD Diagnosis - Discharge Diagnosis (1) Cellulitis of left lower extremity Status: Acute Priority: High (2) Diabetes mellitus Status: Chronic Priority: High (3) Hypertension Status: Chronic Priority: Medium (4) Hypothyroidism Status: Chronic Priority: Medium (5) Morbid obesity Status: Chronic Priority: High (6) CKD (chronic kidney disease) Status: Acute (7) ARTUR (obstructive sleep apnea) Status: Chronic Priority: High (8) Anxiety Status: Chronic Priority: Medium Hospital Course - Lab Results Lab Results: Micro Results 08/08/17 21:30 Blood-Venous Blood Culture - Preliminary NO GROWTH AFTER 3 DAYS 08/08/17 23:40 Leg - Left Gram Stain - Final 08/08/17 23:40 Leg - Left Wound Culture - Preliminary No growth. 08/09/17 08:05 Urine,Random Urine Culture - Final No Growth (<1,000 CFU/ML) Most Recent Lab Values WBC 8.8 K/uL (4.8-10.8) 08/11/17 05:40 RBC 3.85 Mil/uL (4.40-5.90) L 08/11/17 05:40 Hgb 12.1 g/dL (12.0-18.0) 08/11/17 05:40 Hct 35.3 % (35.0-51.0) 08/11/17 05:40 MCV 91.7 fl (80.0-94.0) 08/11/17 05:40 MCH 31.3 pg (27.0-31.0) H 08/11/17 05:40 MCHC 34.2 g/dL (33.0-37.0) 08/11/17 05:40 RDW 15.3 % (11.5-14.5) H 08/11/17 05:40 Plt Count 249 K/uL (130-400) 08/11/17 05:40 MPV 8.4 fl (7.2-11.7) 08/08/17 21:30 Neut % (Auto) 71.8 % (50.0-75.0) 08/08/17 21:30 Lymph % (Auto) 16.5 % (20.0-40.0) L 08/08/17 21:30 [place] % (Auto) 6.2 % (0.0-10.0) 08/08/17 21:30 Eos % (Auto) 4.1 % (0.0-4.0) H 08/08/17 21:30 Baso % (Auto) 1.4 % (0.0-2.0) 08/08/17 21:30 Neut # (Auto) 8.1 K/uL (1.8-7.0) H 08/08/17 21:30 Lymph # (Auto) 1.9 K/uL (1.0-4.3) 08/08/17 21:30 [place] # (Auto) 0.7 K/uL (0.0-0.8) 08/08/17 21:30 Eos # (Auto) 0.5 K/uL (0.0-0.7) 08/08/17 21:30 Baso # (Auto) 0.2 K/uL (0.0-0.2) 08/08/17 21:30 ESR 67 mm/hr (0-20) H 08/09/17 17:24 PT 13.4 Seconds (9.8-13.1) H 08/09/17 05:20 INR 1.2 (0.9-1.2) 08/09/17 05:20 APTT 35.4 Seconds (25.6-37.1) 08/09/17 05:20 Sodium 142 mmol/l (132-148) 08/11/17 05:40 Potassium 3.6 MMOL/L (3.6-5.0) 08/11/17 05:40 Chloride 100 mmol/L (98-107) 08/11/17 05:40 Carbon Dioxide 28 mmol/L (22-30) 08/11/17 05:40 Anion Gap 18 (10-20) 08/11/17 05:40 BUN 49 mg/dl (9-20) H 08/11/17 05:40 Creatinine 3.7 mg/dl (0.8-1.5) H 08/11/17 05:40 Est GFR ( Amer) 20 08/11/17 05:40 Est GFR (Non-Af Amer) 17 08/11/17 05:40 POC Glucose (mg/dL) 156 mg/dL (65-110) H 08/11/17 15:15 Random Glucose 182 mg/dL (75-110) H 08/11/17 05:40 Hemoglobin A1c 7.0 % (4.2-6.5) H 08/11/17 05:40 Lactic Acid 0.8 MMOL/L (0.7-2.1) 08/08/17 21:30 Calcium 9.3 mg/dL (8.4-10.2) 08/11/17 05:40 Phosphorus 4.3 mg/dl (2.5-4.5) 08/10/17 05:40 Total Bilirubin 0.6 mg/dl (0.2-1.3) 08/11/17 05:40 AST 46 U/L (17-59) 08/11/17 05:40 ALT 49 U/L (21-72) 08/11/17 05:40 Alkaline Phosphatase 45 U/L (38-126) 08/11/17 05:40 Total Protein 7.0 G/DL (6.3-8.2) 08/11/17 05:40 Albumin 3.6 g/dL (3.5-5.0) 08/11/17 05:40 Globulin 3.4 gm/dL (2.2-3.9) 08/11/17 05:40 Albumin/Globulin Ratio 1.0 (1.0-2.1) 08/11/17 05:40 Triglycerides 112 mg/DL (0-149) 08/09/17 05:20 Cholesterol 138 mg/dL (0-199) 08/09/17 05:20 LDL Cholesterol Direct 76 mg/dL (0-129) 08/09/17 05:20 HDL Cholesterol 33 MG/DL (30-70) 08/09/17 05:20 25-OH Vitamin D Total < 12.8 NG/ML (30.0-100.0) L 08/10/17 05:40 Thyroxine (T4) 8.85 ug/dl (5.5-11.0) 08/09/17 05:20 Total T3 0.716 nmol/L (1.49-2.60) L 08/09/17 05:20 TSH 3rd Generation 2.79 mIU/ML (0.46-4.68) 08/09/17 07:43 PTH Intact Whole [place] 13 pg/mL (14-64) L 08/10/17 05:40 Urine Color Yellow (YELLOW) 08/09/17 08:05 Urine Clarity Clear (Clear) 08/09/17 08:05 Urine pH 6.0 (5.0-8.0) 08/09/17 08:05 Ur Specific [place] 1.014 (1.003-1.030) 08/09/17 08:05 Urine Protein >=500 mg/dL (NEGATIVE) 08/09/17 08:05 Urine Glucose (UA) 150 mg/dL (Normal) 08/09/17 08:05 Urine Ketones Negative mg/dL (NEGATIVE) 08/09/17 08:05 Urine Blood Small (NEGATIVE) 08/09/17 08:05 Urine Nitrate Negative (NEGATIVE) 08/09/17 08:05 Urine Bilirubin Negative (NEGATIVE) 08/09/17 08:05 Urine Urobilinogen 0.2-1.0 mg/dL (0.2-1.0) 08/09/17 08:05 Ur Leukocyte Esterase Neg Fareed/uL (Negative) 08/09/17 08:05 Urine RBC (Auto) 1 /hpf (0-3) 08/09/17 08:05 Urine Microscopic WBC 2 /hpf (0-5) 08/09/17 08:05 Ur Squamous Epith Cells < 1 /hpf (0-5) 08/09/17 08:05 Hyaline Casts 0-2 /hpf (0-2) 08/09/17 08:05 Ur Random Creatinine 93.6 mg/dL 08/09/17 12:21 U Random Total Protein 375 mg/L 08/10/17 00:00 - Hospital Course Hospital Course: 62 yrs old male AD with Cellulitiis L leg after fallin walking downstairs from home to the street , there was ice . Ptient hit his R leg with the edge of last step and developed in the anterior l leg open ulcer with swelling drainage , a black eschar . patient treated the lesion with "honey" with no improvement for 2 days , Patient,s contact my office and I directed Patient to [facility] ER and Patient was AD 08-08-17 Patient with Hx of DM , HTN , CKD , Morbid Obesity , Dyslipidemia , COPD B Asthma , Hypothyroidism. X Ray L Tibia Fibula , L foot no OM , ECHO normal , Renal US normal Patient was treated with initially with Vanco , Zosyn , ID pci security consultant Vanco , Daptomycin , Patient refused both antibiotic for the " high content of Na used for dilution, there after Patient was started on Zyvox also Patient was f/u by Renal and Podiatric pci security consultant . He was transferred to TCU on 08-11-17 for continue antibiotic treatment and PT Discharge Exam - Head Exam Head Exam: NORMAL INSPECTION - Eye Exam Eye Exam: PERRL - ENT Exam ENT Exam: Normal Exam - Neck Exam Neck exam: Normal Inspection - Respiratory Exam Respiratory Exam: Decreased Breath Sounds (at bases) - Cardiovascular Exam Cardiovascular Exam: REGULAR RHYTHM - GI/Abdominal Exam GI & Abdominal Exam: Normal Bowel Sounds, Soft Additional comments: obese - Extremities Exam Additional comments: Left leg ulcer anterior daily with tenderness , erythema , serous drainage , central necrotic scar , L foot dry hematoma - Back Exam Back exam: tenderness - Neurological Exam Neurological exam: Alert, CN II-XII Intact Additional comments: no focal motor/sensory deficit - Psychiatric Exam Psychiatric exam: Anxious - Skin Skin Exam: Warm Discharge Plan - Discharge Medications Prescriptions: Linezolid 600 mg in D5W 300 ml [Zyvox IV] 600 mg IV Q12 #15 bag - Follow Up Plan Condition: FAIR Disposition: TRANSF TO SNF Instructions: Cellulitis (Skin Infection), Adult (DC) Referrals: Ashanti Busch MD [Staff Provider] - Ron Hupmhries DPM [Staff Provider] - Andres Blandon MD [Staff Provider] -
== END 2017-08-11 20:34 | DRG 605 ==
LOC: H.ER 18:09 → H.ERHOLD 23:27 → H.MEDSURG1 08-09 01:12
PROVIDERS: ADMIT Internal Medicine Pulmonary Disease; ATTEND Internal Medicine Pulmonary Disease
PROC: 3E0234Z Introduction of Serum, Toxoid and Vaccine into Muscle, Percutaneous Approach (ICD-10-PCS; principal; 2017-08-09)
DX: S91.332A Puncture wound without foreign body, left foot, initial encounter (principal); L03.116 Cellulitis of left lower limb; L02.416 Cutaneous abscess of left lower limb; N17.9 Acute kidney failure, unspecified; N18.4 Chronic kidney disease, stage 4 (severe); N25.81 Secondary hyperparathyroidism of renal origin; Z68.42 Body mass index [BMI] 45.0-49.9, adult; L97.529 Non-pressure chronic ulcer of other part of left foot with unspecified severity; I12.9 Hypertensive chronic kidney disease with stage 1 through stage 4 chronic kidney disease, or unspecified chronic kidney disease; E11.22 Type 2 diabetes mellitus with diabetic chronic kidney disease; D63.1 Anemia in chronic kidney disease; G47.33 Obstructive sleep apnea (adult) (pediatric); E66.01 Morbid (severe) obesity due to excess calories; E03.9 Hypothyroidism, unspecified; E78.5 Hyperlipidemia, unspecified; E78.00 Pure hypercholesterolemia, unspecified; F41.9 Anxiety disorder, unspecified; J44.9 Chronic obstructive pulmonary disease, unspecified; W00.0XXA Fall on same level due to ice and snow, initial encounter; Z23 Encounter for immunization; Z88.2 Allergy status to sulfonamides; Z79.4 Long term (current) use of insulin; Z79.82 Long term (current) use of aspirin; Z86.73 Personal history of transient ischemic attack (TIA), and cerebral infarction without residual deficits; Y92.410 Unspecified street and highway as the place of occurrence of the external cause

== ENCOUNTER 2017-08-11 12:15 | Inpatient (IN) | payer OTHER ==
[2017-08-11 21:15] VITALS: BMI 47.0
[2017-08-11] MEDS ORDERED: Albuterol-Ipratrop 3 mg / 0.5 (3 ml) UD INH PRN (21:54)
[2017-08-12] MEDS: Linezolid 600 mg in D5W 300 ml 600 MG/300 ML BAG IVPB SCH ×3 (00:21→23:59)
[2017-08-12 03:54] VITALS: RESP 20
[2017-08-12 06:12] LABS: BASO # 0.1 K/uL (0.0-0.2); BASO % 1.2 % (0.0-2.0); EOS # 0.3 K/uL (0.0-0.7); HEMOGLOBIN 11.9 g/dL (12.0-18.0); LYMPH # 1.4 K/uL (1.0-4.3); LYMPH % 14.2 % (20.0-40.0); MEAN CELL VOLUME 91.7 fl (80.0-94.0); MEAN CORPUSCULAR HEMOGLOBIN 31.3 pg (27.0-31.0); MEAN CORPUSCULAR HGB CONC 34.1 g/dL (33.0-37.0); MEAN PLATELET VOLUME 8.3 fl (7.2-11.7); MONO # 0.8 K/uL (0.0-0.8); MONO % 7.8 % (0.0-10.0); NEUT # 7.3 K/uL (1.8-7.0); NEUT % 73.8 % (50.0-75.0); NRBC % 0.1 % (0.0-0.0); RBC 3.81 Mil/uL (4.40-5.90); RED CELL DISTRIBUTION WIDTH 14.9 % (11.5-14.5); WHITE BLOOD COUNT 9.8 K/uL (4.8-10.8)
[2017-08-12 06:25] LABS: CALCIUM 9.2 mg/dL (8.4-10.2)
[2017-08-12 06:29] LABS: CK-MB 6.86 ng/mL (0.0-3.38)
[2017-08-12] MEDS: Levothyroxine 112 MCG TAB PO SCH (06:52)
[2017-08-12] MEDS: Fluticasone-Salmeterol 250-50mcg Diskus IH SCH ×2 (08:21→17:55)
[2017-08-12] MEDS: Insulin Detemir 100 Units/ml Inj SC SCH ×2 (08:22→22:00)
[2017-08-12] MEDS: Pantoprazole 20 mg EC Tab PO SCH (08:24)
--- NOTE | 2017-08-12 08:55 | CP.PCM.CON ---
History of Present Illness - History of Present Illness History of Present Illness: Podiatry Consult Note- 62 year old male, with PMH of DM, HTN, CKD ,ARTUR, Morbid obesity, Dyslipidemia , COPD B Asthma , Hypothyroidism seen by podiatry in ED for a left lower extremity cellulitis with hematoma s/p injury. Patient states that he fell on ice and the right leg hit the edge of the stairs. He reports wearing compression stockings during that time. Reports taking his compression stockings off few days later and noticed bruising and wound. Treated the wound with medihoney. Patient reports that he feels better today. Reports his pain being 5/10 on VAS scale. Denies acute overnight events, denies fever. Denies nausea, fever, shortness of breath, chest pains, chills or vomiting. Patient denies any other pedal complaints at this time. Past Patient History - Infectious Disease Hx of Infectious Diseases: None - Past Medical History & Family History Past Medical History?: Yes - Past Social History Smoking Status: Never Smoked - CARDIAC Hx Cardiac Disorders: Yes Hx Hypercholesterolemia: Yes Hx Hypertension: Yes - PULMONARY Hx Respiratory Disorders: Yes Hx Asthma: Yes Hx Chronic Obstructive Pulmonary Disease (COPD): Yes Hx Sleep Apnea: Yes - NEUROLOGICAL Hx Neurological Disorder: Yes Hx Transient Ischemic Attacks (TIA): Yes - HEENT Hx HEENT Problems: No - RENAL Hx Chronic Kidney Disease: Yes - ENDOCRINE/METABOLIC Hx Endocrine Disorders: Yes Hx Hyperthyroidism: Yes Hx Hypothyroidism: No - HEMATOLOGICAL/ONCOLOGICAL Hx Blood Disorders: No - INTEGUMENTARY Hx Dermatological Problems: No - MUSCULOSKELETAL/RHEUMATOLOGICAL Hx Musculoskeletal Disorders: Yes (falls) Hx Falls: Yes - GASTROINTESTINAL Hx Gastrointestinal Disorders: No - GENITOURINARY/GYNECOLOGICAL Hx Genitourinary Disorders: No - PSYCHIATRIC Hx Psychophysiologic Disorder: Yes Hx Anxiety: Yes Hx Substance Use: No - SURGICAL HISTORY Hx Surgeries: Yes Hx Cataract Extraction: Yes Hx Herniorrhaphy: Yes (inguinal) - ANESTHESIA Hx Anesthesia: Yes Hx Anesthesia Reactions: No Hx Malignant Hyperthermia: No Meds Allergies/Adverse Reactions: Allergies Allergy/AdvReac Type Severity Reaction Status Date / Time Sulfa (Sulfonamide Allergy ANAPHYLAXIS Verified 06/21/15 08:42 Antibiotics) - Medications Medications: Current Medications Acetaminophen (Tylenol 325mg Tab) 650 mg PO Q4 PRN PRN Reason: Pain, Mild (1-3) Albuterol/Ipratropium (Duoneb 3 Mg/0.5 Mg (3 Ml) Ud) 3 ml INH RQ4 PRN PRN Reason: Shortness of Breath Alprazolam (Xanax) 0.5 mg PO HS PRN PRN Reason: Insomnia Stop: 08/18/17 22:00 Amlodipine Besylate (Norvasc) 2.5 mg PO DAILY [facility] Last Admin: 08/12/17 08:29 Dose: Not Given Aspirin (Ecotrin) 81 mg PO DAILY [facility] Last Admin: 08/12/17 08:25 Dose: 81 mg Calcitriol (Rocaltrol) 0.5 mcg PO DAILY [facility] Last Admin: 08/12/17 08:22 Dose: 0.5 mcg Clonidine HCl (Catapres) 0.2 mg PO TID [facility] Last Admin: 08/12/17 08:24 Dose: 0.2 mg Heparin Sodium (Porcine) (Heparin) 5,000 units SC Q12 [facility] PRN Reason: Protocol Last Admin: 08/12/17 08:25 Dose: Not Given Linezolid (Zyvox 600mg/300ml D5w) 600 mg in 300 mls @ 300 mls/hr IVPB Q12H [facility] PRN Reason: Protocol Last Admin: 08/12/17 00:21 Dose: 300 mls/hr Insulin Detemir (Levemir) 15 units SC Q12 [facility] Last Admin: 08/12/17 08:22 Dose: 15 unit Levothyroxine Sodium (Synthroid) 112 mcg PO DAILY@0630 [facility] Last Admin: 08/12/17 06:52 Dose: 112 mcg Montelukast Sodium (Singulair) 10 mg PO HS [facility] Last Admin: 08/12/17 00:05 Dose: 10 mg Pantoprazole Sodium (Protonix Ec Tab) 20 mg PO DAILY [facility] Last Admin: 08/12/17 08:24 Dose: 20 mg Fluticasone/Salmeterol (Advair Diskus 250/50) 1 puff IH BID [facility] Last Admin: 08/12/17 08:21 Dose: 1 unit Sevelamer HCl (Renagel) 800 mg PO TID [facility] Last Admin: 08/12/17 08:23 Dose: 800 mg Physical Exam - Constitutional Appears: Well, Non-toxic, No Acute Distress - Extremities Exam Extremities exam: Negative for: calf tenderness Additional comments: Vasc: lightly palpable pedal pulses, nonpalpable PT pulses due to edema, CFT < 3 sec to all digits, TG warm to warm, nonpitting edema to the LE bilaterally Neuro: protective sensation diminished and gross sensation intact Derm: no new blister formation at cellulitis site; previous lanced blister ulceration measuring approximately 2 x 2 cm noted to the medial aspect of anterior daily ulceration with serous filled fluid, ulceration noted to the anterior daily measuring 5cm x 6cm x 0.2cm with surrounding erythema and superficial open lesions with Wound base is mixture granular and fibrotic with central necrotic eschar, mild fluctuance, no abscess noted, no purulent drainage , no ascending cellulitis, large bruising noted to periwound skin; erythema margins outlined with marker, no increase in erythema or spreading noted left foot dried hematoma noted to plantar medial heel Ortho: pain on palpation to anterior daily - Neurological Exam Neurological exam: Alert, Oriented x3 - Psychiatric Exam Psychiatric exam: Normal Affect, Normal Mood Results - Vital Signs Recent Vital Signs: Last Vital Signs Temp 97.8 F 08/11/17 22:00 Pulse 92 H 08/12/17 08:29 Resp 20 08/11/17 23:21 BP 162/74 H 08/12/17 08:29 Pulse Ox - Labs Result Diagrams: 08/12/17 06:06 08/12/17 06:06 Labs: Laboratory Results - last 24 hr 08/12/17 08/12/17 08/12/17 02:08 02:21 06:06 WBC 9.8 RBC 3.81 L Hgb 11.9 L Hct 35.0 MCV 91.7 MCH 31.3 H MCHC 34.1 RDW 14.9 H Plt Count 241 MPV 8.3 Neut % (Auto) 73.8 Lymph % (Auto) 14.2 L [place] % (Auto) 7.8 Eos % (Auto) 3.0 Baso % (Auto) 1.2 Neut # (Auto) 7.3 H Lymph # (Auto) 1.4 [place] # (Auto) 0.8 Eos # (Auto) 0.3 Baso # (Auto) 0.1 Sodium Potassium Chloride Carbon Dioxide Anion Gap BUN Creatinine Est GFR ( Amer) Est GFR (Non-Af Amer) POC Glucose (mg/dL) 222 H 218 H Random Glucose Lactic Acid Calcium CK-MB (Mass) 08/12/17 08/12/17 08/12/17 06:06 06:06 06:25 WBC RBC Hgb Hct MCV MCH MCHC RDW Plt Count MPV Neut % (Auto) Lymph % (Auto) [place] % (Auto) Eos % (Auto) Baso % (Auto) Neut # (Auto) Lymph # (Auto) [place] # (Auto) Eos # (Auto) Baso # (Auto) Sodium 141 Potassium 4.2 Chloride 100 Carbon Dioxide 28 Anion Gap 17 BUN 50 H Creatinine 3.6 H Est GFR ( Amer) 21 Est GFR (Non-Af Amer) 17 POC Glucose (mg/dL) 248 H Random Glucose 214 H Lactic Acid 0.9 Calcium 9.2 CK-MB (Mass) 6.86 H Assessment & Plan - Assessment and Plan (Free Text) Assessment: DM, HTN, CKD ,ARTUR, Morbid obesity, Dyslipidemia ,COPD B Asthma , Hypothyroidism for R leg ulceration and cellulitis with hematoma Plan: Patient evaluated and chart reviewed Discussed in detail with attending Dr. Humprhies Labs and vitals reviewed -afebrile, absent leukocytosis Xray- no evidence of foreign body, soft tissue emphysema US negative for DVT Patient has cellulitis with history of trauma Will need to rule out more serious infection necrotizing fasciitis LRINEC score for necrotizing soft tissue infection: 4 points -Scores <6 low risk for necrotizing soft tissue infection Will continue to monitor Re-order labs in the AM Unable to take MRI or CT given patient's size Ordered US to evaluate for possible abscess or soft tissue abnormalities Cleansed ulceration with betadine, dsd, and kerlix Podiatry will continue local wound care Wound culture-caogulase neg staphylococcus c/w abx per ID Podiatry will continue to follow while patient remains in house
[2017-08-12] MEDS ORDERED: Fluticasone-Salmeterol 250-50mcg Diskus IH SCH (09:00)
[2017-08-12] MEDS: Insulin Lispro (humaLOG) 100 Units/ml Inj SC SCH ×4 (09:30→18:59)
[2017-08-12] MEDS: Omega-3-Acid Ethyl Esters 1 GM Cap PO SCH (10:25)
[2017-08-12] MEDS ORDERED: Povidone Iodine Topical 10% Sol ONE (13:02)
--- NOTE | 2017-08-12 13:47 | CP.PCM.HP ---
History of Present Illness - History of Present Illness History of Present Illness: 62 yrs old male AD 08-05 with Dx Cellulitis Leg after Patient fell walking downstairs from home to the street , there was ice . Patient hit his R leg with the edge of the last step and developed in the daily area open ulcer with swelling drainage , black eschar Patient treated the lesion with "honey" for 2 days , Patient was directed to [facility] and was AD 08-05. Patient with Hx DM , HTN , CKD , ARTUR , Morbid obesity ,Dyslipidemia , COPD B Asthma , Hypothyroidism. X Ray L Tibia , L Fibula , L foot no OM , ECHO normal , Renal US normal Patient was treated with Zosyn , Vanco , Zosyn was DC , Daptomycin dded Patient refused due to high content of "Na" of NS , He was started on Zyvox , Patient was follow by ID, Renal and Podiatric internet sales consultant and was transferred 08-11 to TCU for continue Zyvox IV and PT Present on Admission - Present on Admission History of Uncontrolled Diabetes: Yes Review of Systems - Constitutional Constitutional: Weight Gain - EENT Eyes: Other (neg) Ears: Other (nrg) Nose/Mouth/Throat: Other (neg) - Cardiovascular Cardiovascular: Other (nrg) - Respiratory Respiratory: Snoring - Gastrointestinal Gastrointestinal: Other (neg) - Genitourinary Genitourinary: Other (neg) - Musculoskeletal Musculoskeletal: Arthralgias - Integumentary Integumentary: Skin Ulcer - Neurological Neurological: Other (neg) - Psychiatric Psychiatric: Anxiety - Endocrine Endocrine: Other (neg) - Hematologic/Lymphatic Hematologic: Other (nrg) Past Patient History - Infectious Disease Hx of Infectious Diseases: None - Past Medical History & Family History Past Medical History?: Yes - Past Social History Smoking Status: Never Smoked - CARDIAC Hx Cardiac Disorders: Yes Hx Hypercholesterolemia: Yes Hx Hypertension: Yes - PULMONARY Hx Respiratory Disorders: Yes Hx Asthma: Yes Hx Chronic Obstructive Pulmonary Disease (COPD): Yes Hx Sleep Apnea: Yes - NEUROLOGICAL Hx Neurological Disorder: Yes Hx Transient Ischemic Attacks (TIA): Yes - HEENT Hx HEENT Problems: No - RENAL Hx Chronic Kidney Disease: Yes - ENDOCRINE/METABOLIC Hx Endocrine Disorders: Yes Hx Hyperthyroidism: Yes Hx Hypothyroidism: No - HEMATOLOGICAL/ONCOLOGICAL Hx Blood Disorders: No - INTEGUMENTARY Hx Dermatological Problems: No - MUSCULOSKELETAL/RHEUMATOLOGICAL Hx Musculoskeletal Disorders: Yes (falls) Hx Falls: Yes - GASTROINTESTINAL Hx Gastrointestinal Disorders: No - GENITOURINARY/GYNECOLOGICAL Hx Genitourinary Disorders: No - PSYCHIATRIC Hx Psychophysiologic Disorder: Yes Hx Anxiety: Yes Hx Substance Use: No - SURGICAL HISTORY Hx Surgeries: Yes Hx Cataract Extraction: Yes Hx Herniorrhaphy: Yes (inguinal) - ANESTHESIA Hx Anesthesia: Yes Hx Anesthesia Reactions: No Hx Malignant Hyperthermia: No Meds Allergies/Adverse Reactions: Allergies Allergy/AdvReac Type Severity Reaction Status Date / Time Sulfa (Sulfonamide Allergy ANAPHYLAXIS Verified 06/21/15 08:42 Antibiotics) Physical Exam - Constitutional Appears: No Acute Distress - Head Exam Head Exam: NORMAL INSPECTION - Eye Exam Eye Exam: PERRL - ENT Exam ENT Exam: Normal Exam - Neck Exam Neck exam: Positive for: Normal Inspection - Respiratory Exam Respiratory Exam: Decreased Breath Sounds (at bases) - Cardiovascular Exam Cardiovascular Exam: REGULAR RHYTHM - GI/Abdominal Exam GI & Abdominal Exam: Normal Bowel Sounds, Soft Additional comments: obese - Extremities Exam Additional comments: Left leg anterior daily ulceration with tenderness , surrounding erythema , serous drainage, central necrotic scar , Left foot dried hematoma - Back Exam Back exam: tenderness - Neurological Exam Neurological exam: Alert, CN II-XII Intact, Oriented x3 Additional comments: no focal motor/sensory deficit - Psychiatric Exam Psychiatric exam: Anxious - Skin Skin Exam: Warm Results - Vital Signs Recent Vital Signs: Last Vital Signs Temp 99.1 F 08/12/17 09:07 Pulse 84 08/12/17 12:54 Resp 20 08/12/17 09:07 BP 143/73 08/12/17 12:54 Pulse Ox 90 L 08/12/17 09:07 - Labs Result Diagrams: 08/12/17 06:06 08/12/17 06:06 Labs: Laboratory Results - last 24 hr 08/12/17 08/12/17 08/12/17 02:08 02:21 06:06 WBC 9.8 RBC 3.81 L Hgb 11.9 L Hct 35.0 MCV 91.7 MCH 31.3 H MCHC 34.1 RDW 14.9 H Plt Count 241 MPV 8.3 Neut % (Auto) 73.8 Lymph % (Auto) 14.2 L [place] % (Auto) 7.8 Eos % (Auto) 3.0 Baso % (Auto) 1.2 Neut # (Auto) 7.3 H Lymph # (Auto) 1.4 [place] # (Auto) 0.8 Eos # (Auto) 0.3 Baso # (Auto) 0.1 Sodium Potassium Chloride Carbon Dioxide Anion Gap BUN Creatinine Est GFR ( Amer) Est GFR (Non-Af Amer) POC Glucose (mg/dL) 222 H 218 H Random Glucose Hemoglobin A1c Lactic Acid Calcium CK-MB (Mass) 08/12/17 08/12/17 08/12/17 06:06 06:06 06:06 WBC RBC Hgb Hct MCV MCH MCHC RDW Plt Count MPV Neut % (Auto) Lymph % (Auto) [place] % (Auto) Eos % (Auto) Baso % (Auto) Neut # (Auto) Lymph # (Auto) [place] # (Auto) Eos # (Auto) Baso # (Auto) Sodium 141 Potassium 4.2 Chloride 100 Carbon Dioxide 28 Anion Gap 17 BUN 50 H Creatinine 3.6 H Est GFR ( Amer) 21 Est GFR (Non-Af Amer) 17 POC Glucose (mg/dL) Random Glucose 214 H Hemoglobin A1c 7.0 H Lactic Acid 0.9 Calcium 9.2 CK-MB (Mass) 6.86 H 08/12/17 08/12/17 06:25 10:57 WBC RBC Hgb Hct MCV MCH MCHC RDW Plt Count MPV Neut % (Auto) Lymph % (Auto) [place] % (Auto) Eos % (Auto) Baso % (Auto) Neut # (Auto) Lymph # (Auto) [place] # (Auto) Eos # (Auto) Baso # (Auto) Sodium Potassium Chloride Carbon Dioxide Anion Gap BUN Creatinine Est GFR ( Amer) Est GFR (Non-Af Amer) POC Glucose (mg/dL) 248 H 158 H Random Glucose Hemoglobin A1c Lactic Acid Calcium CK-MB (Mass) Assessment & Plan (1) Cellulitis of left lower extremity Status: Acute Priority: High (2) CKD (chronic kidney disease) Status: Acute (3) Diabetes mellitus Status: Acute (4) Morbid obesity Status: Acute (5) ARTUR (obstructive sleep apnea) Status: Acute (6) Hypertension Status: Acute (7) COPD (chronic obstructive pulmonary disease) Status: Acute (8) Dyslipidemia Status: Acute (9) Hypothyroidism Status: Acute - Assessment and Plan (Free Text) Plan: continue Zyvox IV , local care of ulcer cellulitis Left anterior leg , BS and BP control , unable to have MRI or CT of L leg due to Patient weight , to have US L leg , f/u ID and Podiatric consultants
--- NOTE | 2017-08-12 15:37 | CP.PCM.CON ---
History of Present Illness - History of Present Illness History of Present Illness: ID consult Note- HPI- Patient is a 62 year old male with PMH of DM II, HTN, morbid obesity, chronic renal insufficiency who was admitted 5 days ago to [facility] for LLE cellulitis s/p fall and injury to the LLE. pt. denies any fever or chills. Pt. seen by me and podiatry on the med-surg floor and has been getting local wound care by podiatry. Pt. has refused multiple antibiotcs including vancomycin and zosyn and dapto stating that they are made in NS and pt. does not wish to have any NS in his antibiotics . He states gives him edema and raises his BP. Hence pt. has been started on IV linezolid to treat the cellulitis as it can be made in D5w instead of NS. patient is now in TCU for PT and continuation of antibiotics. As per pt. he feels fine and his LLE edema and pain is less compared to admission. spoke with podiatry about the case as well. Pt. denies any fever or chills. He states he is tolerating the linezolid well. Review of Systems - Review of Systems Review of Systems: ROS- denies any fever or chills, denies any SINGH, denies any cough, denies any sob, deneis any chest pain, denies any nausea or vomit, denies any abd pain, denies any dysurea, denies any diarrhea LLE edema and redness and pain post fall Past Patient History - Infectious Disease Hx of Infectious Diseases: None - Past Medical History & Family History Past Medical History?: Yes - Past Social History Smoking Status: Never Smoked Home Situation {Lives}: With Family - CARDIAC Hx Cardiac Disorders: Yes Hx Hypercholesterolemia: Yes Hx Hypertension: Yes - PULMONARY Hx Respiratory Disorders: Yes Hx Asthma: Yes Hx Chronic Obstructive Pulmonary Disease (COPD): Yes Hx Sleep Apnea: Yes - NEUROLOGICAL Hx Neurological Disorder: Yes Hx Transient Ischemic Attacks (TIA): Yes - HEENT Hx HEENT Problems: No - RENAL Hx Chronic Kidney Disease: Yes - ENDOCRINE/METABOLIC Hx Endocrine Disorders: Yes Hx Hyperthyroidism: Yes Hx Hypothyroidism: No - HEMATOLOGICAL/ONCOLOGICAL Hx Blood Disorders: No - INTEGUMENTARY Hx Dermatological Problems: No - MUSCULOSKELETAL/RHEUMATOLOGICAL Hx Musculoskeletal Disorders: Yes (falls) Hx Falls: Yes - GASTROINTESTINAL Hx Gastrointestinal Disorders: No - GENITOURINARY/GYNECOLOGICAL Hx Genitourinary Disorders: No - PSYCHIATRIC Hx Psychophysiologic Disorder: Yes Hx Anxiety: Yes Hx Substance Use: No - SURGICAL HISTORY Hx Surgeries: Yes Hx Cataract Extraction: Yes Hx Herniorrhaphy: Yes (inguinal) - ANESTHESIA Hx Anesthesia: Yes Hx Anesthesia Reactions: No Hx Malignant Hyperthermia: No Meds Allergies/Adverse Reactions: Allergies Allergy/AdvReac Type Severity Reaction Status Date / Time Sulfa (Sulfonamide Allergy ANAPHYLAXIS Verified 06/21/15 08:42 Antibiotics) - Medications Medications: Current Medications Acetaminophen (Tylenol 325mg Tab) 650 mg PO Q4 PRN PRN Reason: Pain, Mild (1-3) Albuterol/Ipratropium (Duoneb 3 Mg/0.5 Mg (3 Ml) Ud) 3 ml INH RQ4 PRN PRN Reason: Shortness of Breath Alprazolam (Xanax) 0.5 mg PO HS PRN PRN Reason: Insomnia Stop: 08/18/17 22:00 Amlodipine Besylate (Norvasc) 2.5 mg PO DAILY [facility] Last Admin: 08/12/17 08:29 Dose: Not Given Aspirin (Ecotrin) 81 mg PO DAILY [facility] Last Admin: 08/12/17 08:25 Dose: 81 mg Calcitriol (Rocaltrol) 0.5 mcg PO DAILY [facility] Last Admin: 08/12/17 08:22 Dose: 0.5 mcg Clonidine HCl (Catapres) 0.2 mg PO TID [facility] Last Admin: 08/12/17 12:54 Dose: 0.2 mg Heparin Sodium (Porcine) (Heparin) 5,000 units SC Q12 [facility] PRN Reason: Protocol Last Admin: 08/12/17 08:25 Dose: Not Given Linezolid (Zyvox 600mg/300ml D5w) 600 mg in 300 mls @ 300 mls/hr IVPB Q12H [facility] PRN Reason: Protocol Last Admin: 08/12/17 12:36 Dose: 300 mls/hr Insulin Detemir (Levemir) 15 units SC Q12 [facility] Last Admin: 08/12/17 08:22 Dose: 15 unit Insulin Human Lispro (Humalog) 20 units SC TIDAC [facility] Last Admin: 08/12/17 12:31 Dose: 20 unit Levothyroxine Sodium (Synthroid) 112 mcg PO DAILY@0630 [facility] Last Admin: 08/12/17 06:52 Dose: 112 mcg Montelukast Sodium (Singulair) 10 mg PO HS [facility] Last Admin: 08/12/17 00:05 Dose: 10 mg [id number] Ethyl Esters (Lovaza) 1 gm PO DAILY [facility] Last Admin: 08/12/17 10:25 Dose: 1 gm Pantoprazole Sodium (Protonix Ec Tab) 20 mg PO DAILY [facility] Last Admin: 08/12/17 08:24 Dose: 20 mg Fluticasone/Salmeterol (Advair Diskus 250/50) 1 puff IH BID [facility] Last Admin: 08/12/17 08:21 Dose: 1 unit Sevelamer HCl (Renagel) 800 mg PO TID [facility] Last Admin: 08/12/17 12:32 Dose: 800 mg Torsemide (Demadex) 20 mg PO BID [facility] Last Admin: 08/12/17 10:25 Dose: 20 mg Physical Exam - Additional Findings Additional findings: - Additional Findings Additional findings: - Constitutional Appears: No Acute Distress - Head Exam Head Exam: ATRAUMATIC - Eye Exam Eye Exam: EOMI - ENT Exam ENT Exam: Normal Oropharynx - Neck Exam Neck exam: Positive for: Full Rom - Respiratory Exam Respiratory Exam: Clear to Auscultation Bilateral, NORMAL BREATHING PATTERN - Cardiovascular Exam Cardiovascular Exam: RRR, +S1, +S2 - GI/Abdominal Exam GI & Abdominal Exam: Normal Bowel Sounds, Soft Additional comments: NT, ND - Extremities Exam Additional comments: LLE frontal region with less edema and erythema and warmth compared to admission, however, small mid portion with fluctuation , and midportion with black eschar , clear fluid discharge, no malodor. dorsal right foot small closed dry ulcer and one small round dry ulcer on the left frontal plantar region RLE also with some dark discoloration of the skin in frontal RLE but no swelling and no discharge - Neurological Exam Neurological exam: Alert, Oriented x 3 Results - Vital Signs Recent Vital Signs: Last Vital Signs Temp 99.1 F 08/12/17 09:07 Pulse 84 08/12/17 12:54 Resp 20 08/12/17 09:07 BP 143/73 08/12/17 12:54 Pulse Ox 90 L 08/12/17 09:07 - Labs Result Diagrams: 08/12/17 06:06 08/13/17 05:30 Labs: Laboratory Results - last 24 hr 08/12/17 08/12/17 08/12/17 02:08 02:21 06:06 WBC 9.8 RBC 3.81 L Hgb 11.9 L Hct 35.0 MCV 91.7 MCH 31.3 H MCHC 34.1 RDW 14.9 H Plt Count 241 MPV 8.3 Neut % (Auto) 73.8 Lymph % (Auto) 14.2 L [place] % (Auto) 7.8 Eos % (Auto) 3.0 Baso % (Auto) 1.2 Neut # (Auto) 7.3 H Lymph # (Auto) 1.4 [place] # (Auto) 0.8 Eos # (Auto) 0.3 Baso # (Auto) 0.1 Sodium Potassium Chloride Carbon Dioxide Anion Gap BUN Creatinine Est GFR ( Amer) Est GFR (Non-Af Amer) POC Glucose (mg/dL) 222 H 218 H Random Glucose Hemoglobin A1c Lactic Acid Calcium CK-MB (Mass) 08/12/17 08/12/17 08/12/17 06:06 06:06 06:06 WBC RBC Hgb Hct MCV MCH MCHC RDW Plt Count MPV Neut % (Auto) Lymph % (Auto) [place] % (Auto) Eos % (Auto) Baso % (Auto) Neut # (Auto) Lymph # (Auto) [place] # (Auto) Eos # (Auto) Baso # (Auto) Sodium 141 Potassium 4.2 Chloride 100 Carbon Dioxide 28 Anion Gap 17 BUN 50 H Creatinine 3.6 H Est GFR ( Amer) 21 Est GFR (Non-Af Amer) 17 POC Glucose (mg/dL) Random Glucose 214 H Hemoglobin A1c 7.0 H Lactic Acid 0.9 Calcium 9.2 CK-MB (Mass) 6.86 H 08/12/17 08/12/17 06:25 10:57 WBC RBC Hgb Hct MCV MCH MCHC RDW Plt Count MPV Neut % (Auto) Lymph % (Auto) [place] % (Auto) Eos % (Auto) Baso % (Auto) Neut # (Auto) Lymph # (Auto) [place] # (Auto) Eos # (Auto) Baso # (Auto) Sodium Potassium Chloride Carbon Dioxide Anion Gap BUN Creatinine Est GFR ( Amer) Est GFR (Non-Af Amer) POC Glucose (mg/dL) 248 H 158 H Random Glucose Hemoglobin A1c Lactic Acid Calcium CK-MB (Mass) Microbiology 08/09/17 08:05 Urine,Random Urine Culture - Final No Growth (<1,000 CFU/ML) 08/08/17 23:40 Leg - Left Gram Stain - Final 08/08/17 23:40 Leg - Left Wound Culture - Final Coagulase Neg Staphylococcus 08/08/17 21:30 Blood-Venous Blood Culture - Preliminary 08/08/17 21:30 Blood-Venous NO GROWTH AFTER 4 DAYS Assessment & Plan (1) Diabetes mellitus Status: Acute (2) Morbid obesity Status: Acute (3) Acute on chronic renal failure Status: Acute (4) Cellulitis of left lower extremity Status: Acute Priority: High - Assessment and Plan (Free Text) Assessment: A/P- 62 year old male with DM II, HTn, obesity admitted with LLE cellulitis and eschar. afebrile normal wbc count blood cx- negative LLE wound cx- coag neg staph ESR-65 plan- continue with linezolid 600 mg IV BID. in light of fluctuation advise to either check MRI or US of the LLE r/o underlying fluid /abscess collection and if so would need drainage as per podiatry. wound care as per podiatry. monitor platalets while on linezolid. may need vascular studies to ascertain if there is PVD All above d/w patient at length and all his questions were answered and he verbalizes full understanding of all above and agrees with above plan of care.
[2017-08-12] MEDS ORDERED: Insulin Lispro (humaLOG) 100 Units/ml Inj SC ONE (21:20)
[2017-08-13] MEDS: Levothyroxine 112 MCG TAB PO SCH (05:43)
[2017-08-13 08:30] LABS: ALB/GLOB RATIO 0.9 (1.0-2.1); ALBUMIN 3.4 g/dL (3.5-5.0); CALCIUM 9.1 mg/dL (8.4-10.2)
[2017-08-13] MEDS: Insulin Lispro (humaLOG) 100 Units/ml Inj SC SCH ×3 (08:32→15:00)
[2017-08-13] MEDS: Omega-3-Acid Ethyl Esters 1 GM Cap PO SCH (09:24)
[2017-08-13] MEDS: Pantoprazole 20 mg EC Tab PO SCH (09:25)
[2017-08-13] MEDS: Fluticasone-Salmeterol 250-50mcg Diskus IH SCH ×2 (09:33→16:51)
[2017-08-13] MEDS: Insulin Detemir 100 Units/ml Inj SC SCH ×2 (09:40→21:12)
--- NOTE | 2017-08-13 10:30 | CP.PCM.PN ---
Subjective - Date & Time of Evaluation Date of Evaluation: 08/13/17 Time of Evaluation: 10:27 - Subjective Subjective: Podiatry Progress note for Dr. Humphries: 62M with PMH DM, HTN, CKD ,ARTUR, Morbid obesity, Dyslipidemia ,COPD, Asthma, Hypothyroidism seen at bedside for LLE wound with hematoma and cellulitis. Patient states that he feels 100% better than he did yesterday. He states that his pain is still present but is decreasiing and is well controlled on his pain medication. He denies any acute overnight events. Denies any recent N/V/F/C/CP/ SOB/D/posterior calf pain when squeezed. Patient states that he is agreeable to having US of LE performed today. Objective - Vital Signs/Intake and Output Vital Signs (last 24 hours): Temp Pulse Resp BP Pulse Ox 98.1 F 85 20 150/70 96 08/13/17 08:11 08/13/17 09:25 08/13/17 08:11 08/13/17 09:25 08/13/17 08:11 - Medications Medications: Current Medications Acetaminophen (Tylenol 325mg Tab) 650 mg PO Q4 PRN PRN Reason: Pain, Mild (1-3) Albuterol/Ipratropium (Duoneb 3 Mg/0.5 Mg (3 Ml) Ud) 3 ml INH RQ4 PRN PRN Reason: Shortness of Breath Alprazolam (Xanax) 0.5 mg PO HS PRN PRN Reason: Insomnia Stop: 08/18/17 22:00 Amlodipine Besylate (Norvasc) 2.5 mg PO DAILY [facility] Last Admin: 08/13/17 09:25 Dose: 2.5 mg Aspirin (Ecotrin) 81 mg PO DAILY [facility] Last Admin: 08/13/17 09:26 Dose: 81 mg Calcitriol (Rocaltrol) 0.5 mcg PO DAILY [facility] Last Admin: 08/13/17 09:24 Dose: 0.5 mcg Clonidine HCl (Catapres) 0.2 mg PO TID [facility] Last Admin: 08/13/17 09:23 Dose: 0.2 mg Heparin Sodium (Porcine) (Heparin) 5,000 units SC Q12 [facility] PRN Reason: Protocol Last Admin: 08/13/17 09:37 Dose: Not Given Linezolid (Zyvox 600mg/300ml D5w) 600 mg in 300 mls @ 300 mls/hr IVPB Q12H [facility] PRN Reason: Protocol Last Admin: 08/12/17 23:59 Dose: 300 mls/hr Insulin Detemir (Levemir) 15 units SC Q12 [facility] Last Admin: 08/13/17 09:40 Dose: 15 unit Insulin Human Lispro (Humalog) 20 units SC TIDAC [facility] Last Admin: 08/13/17 08:32 Dose: 20 unit Levothyroxine Sodium (Synthroid) 112 mcg PO DAILY@0630 [facility] Last Admin: 08/13/17 05:43 Dose: 112 mcg Montelukast Sodium (Singulair) 10 mg PO HS [facility] Last Admin: 08/12/17 22:05 Dose: 10 mg Npiao-0-Titj Ethyl Esters (Lovaza) 1 gm PO DAILY [facility] Last Admin: 08/13/17 09:24 Dose: 1 gm Pantoprazole Sodium (Protonix Ec Tab) 20 mg PO DAILY [facility] Last Admin: 08/13/17 09:25 Dose: 20 mg Fluticasone/Salmeterol (Advair Diskus 250/50) 1 puff IH BID [facility] Last Admin: 08/13/17 09:33 Dose: 1 puff Sevelamer HCl (Renagel) 800 mg PO TID [facility] Last Admin: 08/13/17 09:24 Dose: 800 mg Torsemide (Demadex) 20 mg PO BID [facility] Last Admin: 08/13/17 09:24 Dose: 20 mg - Labs Labs: 08/12/17 06:06 08/13/17 05:30 - Constitutional Appears: Well, Non-toxic, No Acute Distress - Extremities Exam Additional comments: LLE focused exam Vasc: lightly palpable DP pulses 2/4 , nonpalpable PT pulses due to edema, CFT < 3 sec to all digits, TG warm to warm, nonpitting edema to the LE bilaterally Neuro: protective sensation diminished and gross sensation intact Derm: Approx. 5 cm x 6 cm x 0.2 cm ulceration seen on anterior left leg with fibronecrotic base. No new blister formation seen at this time. No fluctuance appreciated. Cellulitic margins noted to be decreasing at this time. No other open lesions, wounds, maceration, xerosis, abnormal pigmentation or abnormal growths noted to leg at this time. Left foot dried hematoma noted to plantar medial heel, stable Ortho: pain on palpation to anterior daily, improving - Neurological Exam Neurological Exam: Alert, Awake, Oriented x3 - Psychiatric Exam Psychiatric exam: Normal Affect, Normal Mood Assessment and Plan - Assessment and Plan (Free Text) Assessment: 62M with PMH DM, HTN, CKD ,ARTUR, Morbid obesity, Dyslipidemia ,COPD, Asthma, Hypothyroidism seen at bedside for LLE wound with hematoma and cellulitis Plan: Patient seen and evaluated at bedside Plan discussed with attending Dr. Humphries\ Vitals stable, absent leukocytosis on last CBC Continue pain management protocol, Tylenol 650 mg prn Continue IV abx per Dr. Busch DVT prophylaxis per medicine F/u MADELEINE/PVRs Wound dressed with betadine, DSD Podiatry to continue with routine wound care No plan for surgical intervention at this time
[2017-08-13] MEDS: Linezolid 600 mg in D5W 300 ml 600 MG/300 ML BAG IVPB SCH ×2 (12:00→23:38)
--- NOTE | 2017-08-13 14:35 | CP.PCM.PN ---
Subjective - Date & Time of Evaluation Date of Evaluation: 08/13/17 - Subjective Subjective: F/U LLE Cellulitis. Pt c/o of pain in L leg. Objective - Vital Signs/Intake and Output Vital Signs (last 24 hours): Temp Pulse Resp BP Pulse Ox 98.1 F 79 20 134/59 L 96 08/13/17 08:11 08/13/17 12:07 08/13/17 08:11 08/13/17 12:07 08/13/17 08:11 - Medications Medications: Current Medications Acetaminophen (Tylenol 325mg Tab) 650 mg PO Q4 PRN PRN Reason: Pain, Mild (1-3) Albuterol/Ipratropium (Duoneb 3 Mg/0.5 Mg (3 Ml) Ud) 3 ml INH RQ4 PRN PRN Reason: Shortness of Breath Alprazolam (Xanax) 0.5 mg PO HS PRN PRN Reason: Insomnia Stop: 08/18/17 22:00 Amlodipine Besylate (Norvasc) 2.5 mg PO DAILY [facility] Last Admin: 08/13/17 09:25 Dose: 2.5 mg Aspirin (Ecotrin) 81 mg PO DAILY [facility] Last Admin: 08/13/17 09:26 Dose: 81 mg Calcitriol (Rocaltrol) 0.5 mcg PO DAILY [facility] Last Admin: 08/13/17 09:24 Dose: 0.5 mcg Clonidine HCl (Catapres) 0.2 mg PO TID [facility] Last Admin: 08/13/17 12:07 Dose: 0.2 mg Heparin Sodium (Porcine) (Heparin) 5,000 units SC Q12 [facility] PRN Reason: Protocol Last Admin: 08/13/17 09:37 Dose: Not Given Linezolid (Zyvox 600mg/300ml D5w) 600 mg in 300 mls @ 300 mls/hr IVPB Q12H [facility] PRN Reason: Protocol Last Admin: 08/13/17 12:00 Dose: 300 mls/hr Insulin Detemir (Levemir) 15 units SC Q12 [facility] Last Admin: 08/13/17 09:40 Dose: 15 unit Insulin Human Lispro (Humalog) 20 units SC TIDAC [facility] Last Admin: 08/13/17 11:58 Dose: 20 unit Levothyroxine Sodium (Synthroid) 112 mcg PO DAILY@0630 [facility] Last Admin: 08/13/17 05:43 Dose: 112 mcg Montelukast Sodium (Singulair) 10 mg PO HS [facility] Last Admin: 08/12/17 22:05 Dose: 10 mg Krdsj-3-Lqqo Ethyl Esters (Lovaza) 1 gm PO DAILY [facility] Last Admin: 08/13/17 09:24 Dose: 1 gm Pantoprazole Sodium (Protonix Ec Tab) 20 mg PO DAILY [facility] Last Admin: 08/13/17 09:25 Dose: 20 mg Fluticasone/Salmeterol (Advair Diskus 250/50) 1 puff IH BID [facility] Last Admin: 08/13/17 09:33 Dose: 1 puff Sevelamer HCl (Renagel) 800 mg PO TID [facility] Last Admin: 08/13/17 12:07 Dose: 800 mg Torsemide (Demadex) 20 mg PO BID [facility] Last Admin: 08/13/17 09:24 Dose: 20 mg - Labs Labs: 08/12/17 06:06 08/13/17 05:30 - Constitutional Appears: No Acute Distress - Head Exam Head Exam: NORMAL INSPECTION - Eye Exam Eye Exam: PERRL - ENT Exam ENT Exam: Normal Exam - Neck Exam Neck Exam: Normal Inspection - Respiratory Exam Respiratory Exam: Decreased Breath Sounds (at bases) - Cardiovascular Exam Cardiovascular Exam: REGULAR RHYTHM - GI/Abdominal Exam GI & Abdominal Exam: Soft, Normal Bowel Sounds Additional comments: Obese - Extremities Exam Additional comments: L leg ulceration with tenderness, surrounding erythema, serous drainage, central necrotic scar, L foot dried hematoma. - Back Exam Back Exam: tenderness - Neurological Exam Neurological Exam: Alert, CN II-XII Intact, Oriented x3 Additional comments: No focal motor /sensory deficit - Psychiatric Exam Psychiatric exam: Anxious - Skin Skin Exam: Warm Assessment and Plan (1) Cellulitis of left lower extremity Status: Acute (2) CKD (chronic kidney disease) Status: Acute (3) Diabetes mellitus Status: Acute (4) Morbid obesity Status: Acute (5) ARTUR (obstructive sleep apnea) Status: Acute (6) Hypertension Status: Acute (7) COPD (chronic obstructive pulmonary disease) Status: Acute (8) Dyslipidemia Status: Acute (9) Hypothyroidism Status: Acute - Assessment and Plan (Free Text) Plan: For L Leg U-S today, continue Zyvox, Demadex and rest of Tx.
[2017-08-14] MEDS: Insulin Lispro (humaLOG) 100 Units/ml Inj SC SCH ×3 (07:49→17:27)
[2017-08-14] MEDS: Levothyroxine 112 MCG TAB PO SCH (07:50)
[2017-08-14] MEDS: Fluticasone-Salmeterol 250-50mcg Diskus IH SCH ×2 (09:06→17:24)
[2017-08-14] MEDS: Omega-3-Acid Ethyl Esters 1 GM Cap PO SCH (09:08)
[2017-08-14] MEDS: Insulin Detemir 100 Units/ml Inj SC SCH ×2 (09:08→22:36)
[2017-08-14] MEDS: Pantoprazole 20 mg EC Tab PO SCH (09:08)
[2017-08-14] MEDS: Linezolid 600 mg in D5W 300 ml 600 MG/300 ML BAG IVPB SCH ×2 (12:19→23:30)
--- NOTE | 2017-08-14 13:10 | CP.PCM.PN ---
Subjective - Date & Time of Evaluation Date of Evaluation: 08/14/17 Time of Evaluation: 13:07 - Subjective Subjective: Podiatry Progress note for Dr. Humphries: 62M with PMH DM, HTN, CKD ,ARTUR, Morbid obesity, Dyslipidemia ,COPD, Asthma, Hypothyroidism seen at bedside for LLE wound with cellulitis and hematoma. Patient states that his pain is well controlled at this time. He denies any acute overnight events. Denies any recent N/V/F/C/CP/SOB/D/posterior calf pain when squeezed. States that US went without complication this morning Objective - Vital Signs/Intake and Output Vital Signs (last 24 hours): Temp Pulse Resp BP Pulse Ox 98.2 F 68 20 133/65 95 08/14/17 08:23 08/14/17 12:26 08/14/17 08:23 08/14/17 12:26 08/14/17 08:23 - Medications Medications: Current Medications Acetaminophen (Tylenol 325mg Tab) 650 mg PO Q4 PRN PRN Reason: Pain, Mild (1-3) Albuterol/Ipratropium (Duoneb 3 Mg/0.5 Mg (3 Ml) Ud) 3 ml INH RQ4 PRN PRN Reason: Shortness of Breath Alprazolam (Xanax) 0.5 mg PO HS PRN PRN Reason: Insomnia Stop: 08/18/17 22:00 Amlodipine Besylate (Norvasc) 2.5 mg PO DAILY [facility] Last Admin: 08/14/17 09:07 Dose: 2.5 mg Aspirin (Ecotrin) 81 mg PO DAILY [facility] Last Admin: 08/14/17 09:08 Dose: 81 mg Calcitriol (Rocaltrol) 0.5 mcg PO DAILY [facility] Last Admin: 08/14/17 09:10 Dose: 0.5 mcg Clonidine HCl (Catapres) 0.2 mg PO TID [facility] Last Admin: 08/14/17 12:26 Dose: 0.2 mg Heparin Sodium (Porcine) (Heparin) 5,000 units SC Q12 [facility] PRN Reason: Protocol Last Admin: 08/14/17 09:10 Dose: Not Given Linezolid (Zyvox 600mg/300ml D5w) 600 mg in 300 mls @ 300 mls/hr IVPB Q12H [facility] PRN Reason: Protocol Last Admin: 08/14/17 12:19 Dose: 300 mls/hr Insulin Detemir (Levemir) 15 units SC Q12 [facility] Last Admin: 08/14/17 09:08 Dose: 15 unit Insulin Human Lispro (Humalog) 20 units SC TIDAC [facility] Last Admin: 08/14/17 12:17 Dose: 20 unit Levothyroxine Sodium (Synthroid) 112 mcg PO DAILY@0630 [facility] Last Admin: 08/14/17 07:50 Dose: 112 mcg Montelukast Sodium (Singulair) 10 mg PO HS [facility] Last Admin: 08/13/17 21:12 Dose: 10 mg Hrlmi-6-Flei Ethyl Esters (Lovaza) 1 gm PO DAILY [facility] Last Admin: 08/14/17 09:08 Dose: 1 gm Pantoprazole Sodium (Protonix Ec Tab) 20 mg PO DAILY [facility] Last Admin: 08/14/17 09:08 Dose: 20 mg Fluticasone/Salmeterol (Advair Diskus 250/50) 1 puff IH BID [facility] Last Admin: 08/14/17 09:06 Dose: 1 puff Sevelamer HCl (Renagel) 800 mg PO TID [facility] Last Admin: 08/14/17 12:18 Dose: 800 mg Torsemide (Demadex) 20 mg PO BID [facility] Last Admin: 08/14/17 09:10 Dose: 20 mg - Labs Labs: 08/12/17 06:06 08/13/17 05:30 - Constitutional Appears: Well, Non-toxic, No Acute Distress - Extremities Exam Additional comments: LLE focused exam Vasc: lightly palpable DP pulses 2/4 , nonpalpable PT pulses due to edema, CFT < 3 sec to all digits, TG warm to warm, nonpitting edema to the LE bilaterally Neuro: protective sensation diminished and gross sensation intact Derm: Approx. 5 cm x 6 cm x 0.2 cm ulceration seen on anterior left leg with fibronecrotic base. No new blister formation seen at this time. Skin very tense in some areas and fluctuant in others. Cellulitic margins continue to be present at this time. No other open lesions, wounds, maceration, xerosis, abnormal pigmentation or abnormal growths noted to leg at this time. Left foot dried hematoma noted to plantar medial heel, stable Ortho: pain on palpation to anterior daily - Neurological Exam Neurological Exam: Alert, Awake, Oriented x3 - Psychiatric Exam Psychiatric exam: Normal Affect, Normal Mood Assessment and Plan - Assessment and Plan (Free Text) Assessment: 62M with PMH DM, HTN, CKD ,ARTUR, Morbid obesity, Dyslipidemia ,COPD, Asthma, Hypothyroidism seen at bedside for LLE wound with cellulitis and hematoma Plan: Patient seen and evaluated at bedside Plan discussed with attending Dr. Humphries Most recent charts, labs and vitals reviewed Continue IV abx per ID F/u CBC and CRP tomorrow F/u LE US No surgical intervention planned at this time Wound dressed with betadine, ABD, DSD Podiatry will continue to follow while patient is in house
[2017-08-15 06:16] LABS: HEMOGLOBIN 11.6 g/dL (12.0-18.0); MEAN CELL VOLUME 91.8 fl (80.0-94.0); MEAN CORPUSCULAR HEMOGLOBIN 31.5 pg (27.0-31.0); MEAN CORPUSCULAR HGB CONC 34.3 g/dL (33.0-37.0); RBC 3.7 Mil/uL (4.40-5.90); RED CELL DISTRIBUTION WIDTH 14.8 % (11.5-14.5); WHITE BLOOD COUNT 9.8 K/uL (4.8-10.8)
[2017-08-15] MEDS: Levothyroxine 112 MCG TAB PO SCH (07:04)
--- NOTE | 2017-08-15 08:21 | CP.PCM.PN ---
Subjective - Date & Time of Evaluation Date of Evaluation: 08/15/17 Time of Evaluation: 08:18 - Subjective Subjective: 62 y/o male seen at bedside with attending Dr. Humphries for left anterior leg wound with cellulitis. Pt says he feels perfectly fine today, denying F/C/N/V/CP /SOB. Says he is not having any pain in the left leg. Says he is ready to leave and wants to go see a wound care philosophy professor that he was referred to by a friend. Objective - Vital Signs/Intake and Output Vital Signs (last 24 hours): Temp Pulse Resp BP Pulse Ox 98.1 F 79 20 168/84 H 96 08/14/17 22:09 08/14/17 22:09 08/14/17 22:09 08/14/17 22:09 08/14/17 22:09 - Medications Medications: Current Medications Acetaminophen (Tylenol 325mg Tab) 650 mg PO Q4 PRN PRN Reason: Pain, Mild (1-3) Albuterol/Ipratropium (Duoneb 3 Mg/0.5 Mg (3 Ml) Ud) 3 ml INH RQ4 PRN PRN Reason: Shortness of Breath Alprazolam (Xanax) 0.5 mg PO HS PRN PRN Reason: Insomnia Stop: 08/18/17 22:00 Last Admin: 08/14/17 18:20 Dose: 0.5 mg Amlodipine Besylate (Norvasc) 2.5 mg PO DAILY [facility] Last Admin: 08/14/17 09:07 Dose: 2.5 mg Aspirin (Ecotrin) 81 mg PO DAILY [facility] Last Admin: 08/14/17 09:08 Dose: 81 mg Calcitriol (Rocaltrol) 0.5 mcg PO DAILY [facility] Last Admin: 08/14/17 09:10 Dose: 0.5 mcg Clonidine HCl (Catapres) 0.2 mg PO TID [facility] Last Admin: 08/14/17 17:28 Dose: 0.2 mg Heparin Sodium (Porcine) (Heparin) 5,000 units SC Q12 [facility] PRN Reason: Protocol Last Admin: 08/14/17 22:34 Dose: Not Given Linezolid (Zyvox 600mg/300ml D5w) 600 mg in 300 mls @ 300 mls/hr IVPB Q12H [facility] PRN Reason: Protocol Last Admin: 08/14/17 23:30 Dose: 300 mls/hr Insulin Detemir (Levemir) 15 units SC Q12 [facility] Last Admin: 08/14/17 22:36 Dose: 15 unit Insulin Human Lispro (Humalog) 20 units SC TIDAC [facility] Last Admin: 08/14/17 17:27 Dose: 20 unit Levothyroxine Sodium (Synthroid) 112 mcg PO DAILY@0630 [facility] Last Admin: 08/15/17 07:04 Dose: 112 mcg Montelukast Sodium (Singulair) 10 mg PO HS [facility] Last Admin: 08/14/17 22:36 Dose: 10 mg Ershb-2-Vywq Ethyl Esters (Lovaza) 1 gm PO DAILY [facility] Last Admin: 08/14/17 09:08 Dose: 1 gm Pantoprazole Sodium (Protonix Ec Tab) 20 mg PO DAILY [facility] Last Admin: 08/14/17 09:08 Dose: 20 mg Fluticasone/Salmeterol (Advair Diskus 250/50) 1 puff IH BID [facility] Last Admin: 08/14/17 17:24 Dose: 1 puff Sevelamer HCl (Renagel) 800 mg PO TID [facility] Last Admin: 08/14/17 17:24 Dose: 800 mg Torsemide (Demadex) 20 mg PO BID [facility] Last Admin: 08/14/17 17:28 Dose: 20 mg - Labs Labs: 08/15/17 05:45 08/13/17 05:30 - Constitutional Appears: Well, Non-toxic, No Acute Distress - Extremities Exam Additional comments: LLE focused exam Vasc: lightly palpable DP pulses 2/4, nonpalpable PT pulses due to edema, CFT < 3 sec to all digits, TG warm to warm, nonpitting edema to the LE B/L Neuro: protective sensation diminished and gross sensation intact Derm: Approx. 5 cm x 6 cm x 0.2 cm ulceration seen on anterior left leg with fibronecrotic base. No new blister formation seen at this time. Skin is mildly fluctuant. Cellulitic margins noted. No other open lesions, wounds, maceration, xerosis, abnormal pigmentation or abnormal growths noted to leg at this time. Left foot dried hematoma noted to plantar medial heel, stable Ortho: no tenderness on palpation to anterior daily - Neurological Exam Neurological Exam: Alert, Awake, Oriented x3 - Psychiatric Exam Psychiatric exam: Normal Affect, Normal Mood Assessment and Plan - Assessment and Plan (Free Text) Assessment: 62 y/o male with LLE abscess with cellulitis and hematoma Plan: Patient seen and evaluated at bedside with attending Dr. Humphries Most recent charts, labs and vitals reviewed - afebrile, WBC 9.8 Continue IV abx per ID F/U MADELEINE/PVRs Lower extremity U/S shows fluid collection at site of wound Recommend bedside incision and drainage - pt refusing at this time Pt states he would rather leave and have the wound cleaning performed elsewhere Wound dressed with betadine, ABD, DSD Podiatry will continue to follow while patient is in house
[2017-08-15] MEDS: Fluticasone-Salmeterol 250-50mcg Diskus IH SCH ×2 (08:24→17:32)
[2017-08-15] MEDS: Pantoprazole 20 mg EC Tab PO SCH (08:25)
[2017-08-15] MEDS: Omega-3-Acid Ethyl Esters 1 GM Cap PO SCH (08:26)
[2017-08-15] MEDS: Insulin Lispro (humaLOG) 100 Units/ml Inj SC SCH ×3 (08:27→18:19)
[2017-08-15] MEDS: Insulin Detemir 100 Units/ml Inj SC SCH ×2 (08:33→21:34)
[2017-08-15] MEDS: Linezolid 600 mg in D5W 300 ml 600 MG/300 ML BAG IVPB SCH ×2 (12:24→23:43)
--- NOTE | 2017-08-15 13:00 | CP.PCM.PN ---
Subjective - Date & Time of Evaluation Date of Evaluation: 08/15/17 Time of Evaluation: 13:00 - Subjective Subjective: ID Note- Pt. seen and examined today. He states he feels good and wants to go home today. denies any fever or chills and states the pain and swelling in his left leg has improved. Objective - Vital Signs/Intake and Output Vital Signs (last 24 hours): Temp Pulse Resp BP Pulse Ox 98.1 F 72 20 135/66 98 08/15/17 08:38 08/15/17 12:25 08/15/17 08:38 08/15/17 12:25 08/15/17 08:38 - Medications Medications: Current Medications Acetaminophen (Tylenol 325mg Tab) 650 mg PO Q4 PRN PRN Reason: Pain, Mild (1-3) Albuterol/Ipratropium (Duoneb 3 Mg/0.5 Mg (3 Ml) Ud) 3 ml INH RQ4 PRN PRN Reason: Shortness of Breath Alprazolam (Xanax) 0.5 mg PO HS PRN PRN Reason: Insomnia Stop: 08/18/17 22:00 Last Admin: 08/14/17 18:20 Dose: 0.5 mg Amlodipine Besylate (Norvasc) 2.5 mg PO DAILY [facility] Last Admin: 08/15/17 08:26 Dose: 2.5 mg Aspirin (Ecotrin) 81 mg PO DAILY [facility] Last Admin: 08/15/17 08:26 Dose: 81 mg Calcitriol (Rocaltrol) 0.5 mcg PO DAILY [facility] Last Admin: 08/15/17 08:25 Dose: 0.5 mcg Clonidine HCl (Catapres) 0.2 mg PO TID [facility] Last Admin: 08/15/17 12:25 Dose: 0.2 mg Heparin Sodium (Porcine) (Heparin) 5,000 units SC Q12 [facility] PRN Reason: Protocol Last Admin: 08/15/17 08:32 Dose: Not Given Linezolid (Zyvox 600mg/300ml D5w) 600 mg in 300 mls @ 300 mls/hr IVPB Q12H [facility] PRN Reason: Protocol Last Admin: 08/15/17 12:24 Dose: 300 mls/hr Insulin Detemir (Levemir) 15 units SC Q12 [facility] Last Admin: 08/15/17 08:33 Dose: 15 unit Insulin Human Lispro (Humalog) 20 units SC TIDAC [facility] Last Admin: 08/15/17 12:33 Dose: 20 unit Levothyroxine Sodium (Synthroid) 112 mcg PO DAILY@0630 [facility] Last Admin: 08/15/17 07:04 Dose: 112 mcg Montelukast Sodium (Singulair) 10 mg PO HS [facility] Last Admin: 08/14/17 22:36 Dose: 10 mg Dpxxw-3-Dfyk Ethyl Esters (Lovaza) 1 gm PO DAILY [facility] Last Admin: 08/15/17 08:26 Dose: 1 gm Pantoprazole Sodium (Protonix Ec Tab) 20 mg PO DAILY [facility] Last Admin: 08/15/17 08:25 Dose: 20 mg Fluticasone/Salmeterol (Advair Diskus 250/50) 1 puff IH BID [facility] Last Admin: 08/15/17 08:24 Dose: 1 puff Sevelamer HCl (Renagel) 800 mg PO TID [facility] Last Admin: 08/15/17 12:24 Dose: 800 mg Torsemide (Demadex) 20 mg PO BID [facility] Last Admin: 08/15/17 08:24 Dose: 20 mg - Labs Labs: - Additional Findings Additional findings: - Constitutional Appears: No Acute Distress - Head Exam Head Exam: ATRAUMATIC - Eye Exam Eye Exam: EOMI - ENT Exam ENT Exam: Normal Oropharynx - Neck Exam Neck exam: Positive for: Full Rom - Respiratory Exam Respiratory Exam: Clear to Auscultation Bilateral, NORMAL BREATHING PATTERN - Cardiovascular Exam Cardiovascular Exam: RRR, +S1, +S2 - GI/Abdominal Exam GI & Abdominal Exam: Normal Bowel Sounds, Soft Additional comments: NT, ND - Extremities Exam Additional comments: LLE frontal region with less erythema and warmth compared to admission, however, mid portion with fluctuation and edema , and midportion with black eschar , clear fluid discharge, no malodor. dorsal right foot small closed dry ulcer and one small round dry ulcer on the left frontal plantar region RLE also with some dark discoloration of the skin in frontal RLE but no swelling and no discharge - Neurological Exam Neurological exam: Alert, Oriented x 3 Laboratory Results - last 72 hr 08/12/17 08/12/17 08/12/17 06:06 16:42 18:55 WBC RBC Hgb Hct MCV MCH MCHC RDW Plt Count Sodium Potassium Chloride Carbon Dioxide Anion Gap BUN Creatinine Est GFR ( Amer) Est GFR (Non-Af Amer) POC Glucose (mg/dL) 88 219 H Random Glucose Calcium Total Bilirubin AST ALT Alkaline Phosphatase C-Reactive Protein 128.90 H Total Protein Albumin Globulin Albumin/Globulin Ratio 08/12/17 08/13/17 08/13/17 21:04 00:10 05:30 WBC RBC Hgb Hct MCV MCH MCHC RDW Plt Count Sodium 141 Potassium 3.8 Chloride 101 Carbon Dioxide 30 Anion Gap 14 BUN 50 H Creatinine 3.7 H Est GFR ( Amer) 20 Est GFR (Non-Af Amer) 17 POC Glucose (mg/dL) 418 H* 165 H Random Glucose 146 H Calcium 9.1 Total Bilirubin 0.5 AST 67 H D ALT 57 Alkaline Phosphatase 46 C-Reactive Protein Total Protein 6.9 Albumin 3.4 L Globulin 3.6 Albumin/Globulin Ratio 0.9 L 08/13/17 08/13/17 08/13/17 06:05 10:59 15:47 WBC RBC Hgb Hct MCV MCH MCHC RDW Plt Count Sodium Potassium Chloride Carbon Dioxide Anion Gap BUN Creatinine Est GFR ( Amer) Est GFR (Non-Af Amer) POC Glucose (mg/dL) 144 H 218 H 147 H Random Glucose Calcium Total Bilirubin AST ALT Alkaline Phosphatase C-Reactive Protein Total Protein Albumin Globulin Albumin/Globulin Ratio 08/13/17 08/13/17 08/14/17 18:06 20:44 05:45 WBC RBC Hgb Hct MCV MCH MCHC RDW Plt Count Sodium Potassium Chloride Carbon Dioxide Anion Gap BUN Creatinine Est GFR ( Amer) Est GFR (Non-Af Amer) POC Glucose (mg/dL) 199 H 162 H 290 H Random Glucose Calcium Total Bilirubin AST ALT Alkaline Phosphatase C-Reactive Protein Total Protein Albumin Globulin Albumin/Globulin Ratio 08/14/17 08/14/17 08/14/17 11:05 16:00 16:51 WBC RBC Hgb Hct MCV MCH MCHC RDW Plt Count Sodium Potassium Chloride Carbon Dioxide Anion Gap BUN Creatinine Est GFR ( Amer) Est GFR (Non-Af Amer) POC Glucose (mg/dL) 137 H 72 140 H Random Glucose Calcium Total Bilirubin AST ALT Alkaline Phosphatase C-Reactive Protein Total Protein Albumin Globulin Albumin/Globulin Ratio 08/14/17 08/14/17 08/15/17 21:07 22:32 05:45 WBC 9.8 RBC 3.70 L Hgb 11.6 L Hct 34.0 L MCV 91.8 MCH 31.5 H MCHC 34.3 RDW 14.8 H Plt Count 284 Sodium Potassium Chloride Carbon Dioxide Anion Gap BUN Creatinine Est GFR ( Amer) Est GFR (Non-Af Amer) POC Glucose (mg/dL) 80 119 H Random Glucose Calcium Total Bilirubin AST ALT Alkaline Phosphatase C-Reactive Protein Total Protein Albumin Globulin Albumin/Globulin Ratio 08/15/17 08/15/17 08/15/17 05:45 06:17 11:19 WBC RBC Hgb Hct MCV MCH MCHC RDW Plt Count Sodium Potassium Chloride Carbon Dioxide Anion Gap BUN Creatinine Est GFR ( Amer) Est GFR (Non-Af Amer) POC Glucose (mg/dL) 172 H 97 Random Glucose Calcium Total Bilirubin AST ALT Alkaline Phosphatase C-Reactive Protein 80.50 H Total Protein Albumin Globulin Albumin/Globulin Ratio 08/15/17 08/15/17 12:30 13:28 WBC RBC Hgb Hct MCV MCH MCHC RDW Plt Count Sodium Potassium Chloride Carbon Dioxide Anion Gap BUN Creatinine Est GFR ( Amer) Est GFR (Non-Af Amer) POC Glucose (mg/dL) 92 150 H Random Glucose Calcium Total Bilirubin AST ALT Alkaline Phosphatase C-Reactive Protein Total Protein Albumin Globulin Albumin/Globulin Ratio Microbiology 08/08/17 23:40 Leg - Left Gram Stain - Final 08/08/17 23:40 Leg - Left Wound Culture - Final Coagulase Neg Staphylococcus Assessment and Plan (1) Diabetes mellitus Status: Acute (2) Morbid obesity Status: Acute (3) Acute on chronic renal failure Status: Acute (4) Cellulitis of left lower extremity Status: Acute - Assessment and Plan (Free Text) Assessment: A/P- 62 year old male with DM II, HTn, obesity admitted with LLE cellulitis and eschar. afebrile normal wbc count blood cx- negative LLE wound cx- coag neg staph ESR-65 LLE with fluctuation, edema and eschar pt. does not wish to have I and D here. plan- had advised vancomycin and zosyn from admission but pt. has refused those antibiotics and has refused daptomycin bc of sodium content despite repeated discussions. hence continue with linezolid 600 mg IV BID. await result of US of the LLE r/o underlying fluid /abscess collection and if so would need drainage either by podiatry or surgery. wound care as per podiatry. monitor platalets while on linezolid. may need vascular studies to ascertain if there is PVD All above d/w patient at length and all his questions were answered and he verbalizes full understanding of all above and agrees with above plan of care. all above also d/w pt's PMD .
--- NOTE | 2017-08-15 15:48 | CP.PCM.CON ---
<Elian Lopez - Last Filed: 08/15/17 15:55> History of Present Illness - History of Present Illness History of Present Illness: General Surgery Consult Note for Dr. Salvador Reason for Consult: left lower leg cellulitis and abscess 62M with PMH that includes DM, HTN, CKD , COPD presents with LLE cellulitis and abscess. Patient was seen and evaluated in the TCU. Patient states that this has been present for about 2 weeks. He reports that he slipped on ice while walking down stairs then hit his left leg off a step. Patient was admitted for the cellulitis on 08/08 then transferred to TCU on 08/11. He had been receiving IV antibiotics since admission. Podiatry and Infectious disease has been seeing patient. Patient states that he currently is not experiencing pain. He has a history of diabetes and diabetic neuropathy. He denies any alleviating or exacerbating factors. Denies fever/chills, chest pain, SOB, palpitations, abd pain, nausea/vomiting, diarrhea, constipation, incontinence, urinary symptoms, or numbness/tingling. PMD: Dr. Crowder PMH: DM, HTN, CKD ,ARTUR, Morbid obesity, Dyslipidemia ,COPD, Asthma, Hypothyroidism Meds: As per EMR Allergy: Sulfa drugs PSH: R inguinal hernia repair FH: non-contributory Social: denies tobacco/EtOH/illicit drug use Review of Systems - Review of Systems All systems: reviewed and no additional remarkable complaints except (12 point ROS performed and found to be negative unless otherwise specificed in HPI) Past Patient History - Infectious Disease Hx of Infectious Diseases: None - Past Medical History & Family History Past Medical History?: Yes - Past Social History Smoking Status: Never Smoked Home Situation {Lives}: With Family - CARDIAC Hx Cardiac Disorders: Yes Hx Hypercholesterolemia: Yes Hx Hypertension: Yes - PULMONARY Hx Respiratory Disorders: Yes Hx Asthma: Yes Hx Chronic Obstructive Pulmonary Disease (COPD): Yes Hx Sleep Apnea: Yes - NEUROLOGICAL Hx Neurological Disorder: Yes Hx Transient Ischemic Attacks (TIA): Yes - HEENT Hx HEENT Problems: No - RENAL Hx Chronic Kidney Disease: Yes - ENDOCRINE/METABOLIC Hx Endocrine Disorders: Yes Hx Hyperthyroidism: Yes Hx Hypothyroidism: No - HEMATOLOGICAL/ONCOLOGICAL Hx Blood Disorders: No - INTEGUMENTARY Hx Dermatological Problems: No - MUSCULOSKELETAL/RHEUMATOLOGICAL Hx Musculoskeletal Disorders: Yes (falls) Hx Falls: Yes - GASTROINTESTINAL Hx Gastrointestinal Disorders: No - GENITOURINARY/GYNECOLOGICAL Hx Genitourinary Disorders: No - PSYCHIATRIC Hx Psychophysiologic Disorder: Yes Hx Anxiety: Yes Hx Substance Use: No - SURGICAL HISTORY Hx Surgeries: Yes Hx Cataract Extraction: Yes Hx Herniorrhaphy: Yes (inguinal) - ANESTHESIA Hx Anesthesia: Yes Hx Anesthesia Reactions: No Hx Malignant Hyperthermia: No Meds Allergies/Adverse Reactions: Allergies Allergy/AdvReac Type Severity Reaction Status Date / Time Sulfa (Sulfonamide Allergy ANAPHYLAXIS Verified 06/21/15 08:42 Antibiotics) - Medications Medications: Current Medications Acetaminophen (Tylenol 325mg Tab) 650 mg PO Q4 PRN PRN Reason: Pain, Mild (1-3) Albuterol/Ipratropium (Duoneb 3 Mg/0.5 Mg (3 Ml) Ud) 3 ml INH RQ4 PRN PRN Reason: Shortness of Breath Alprazolam (Xanax) 0.5 mg PO HS PRN PRN Reason: Insomnia Stop: 08/18/17 22:00 Last Admin: 08/14/17 18:20 Dose: 0.5 mg Amlodipine Besylate (Norvasc) 2.5 mg PO DAILY [facility] Last Admin: 08/15/17 08:26 Dose: 2.5 mg Aspirin (Ecotrin) 81 mg PO DAILY [facility] Last Admin: 08/15/17 08:26 Dose: 81 mg Calcitriol (Rocaltrol) 0.5 mcg PO DAILY [facility] Last Admin: 08/15/17 08:25 Dose: 0.5 mcg Clonidine HCl (Catapres) 0.2 mg PO TID [facility] Last Admin: 08/15/17 12:25 Dose: 0.2 mg Heparin Sodium (Porcine) (Heparin) 5,000 units SC Q12 [facility] PRN Reason: Protocol Last Admin: 08/15/17 08:32 Dose: Not Given Linezolid (Zyvox 600mg/300ml D5w) 600 mg in 300 mls @ 300 mls/hr IVPB Q12H [facility] PRN Reason: Protocol Last Admin: 08/15/17 12:24 Dose: 300 mls/hr Insulin Detemir (Levemir) 15 units SC Q12 [facility] Last Admin: 08/15/17 08:33 Dose: 15 unit Insulin Human Lispro (Humalog) 20 units SC TIDAC [facility] Last Admin: 08/15/17 12:33 Dose: 20 unit Levothyroxine Sodium (Synthroid) 112 mcg PO DAILY@0630 [facility] Last Admin: 08/15/17 07:04 Dose: 112 mcg Montelukast Sodium (Singulair) 10 mg PO HS [facility] Last Admin: 08/14/17 22:36 Dose: 10 mg Nxome-8-Iaxt Ethyl Esters (Lovaza) 1 gm PO DAILY [facility] Last Admin: 08/15/17 08:26 Dose: 1 gm Pantoprazole Sodium (Protonix Ec Tab) 20 mg PO DAILY [facility] Last Admin: 08/15/17 08:25 Dose: 20 mg Fluticasone/Salmeterol (Advair Diskus 250/50) 1 puff IH BID [facility] Last Admin: 08/15/17 08:24 Dose: 1 puff Sevelamer HCl (Renagel) 800 mg PO TID [facility] Last Admin: 08/15/17 12:24 Dose: 800 mg Torsemide (Demadex) 20 mg PO BID [facility] Last Admin: 08/15/17 08:24 Dose: 20 mg Physical Exam - Constitutional Appears: No Acute Distress - Head Exam Head Exam: ATRAUMATIC, NORMOCEPHALIC - Eye Exam Eye Exam: EOMI, Normal appearance Pupil Exam: PERRL - ENT Exam ENT Exam: Mucous Membranes Moist - Neck Exam Neck exam: Negative for: Tenderness - Respiratory Exam Respiratory Exam: NORMAL BREATHING PATTERN - Cardiovascular Exam Cardiovascular Exam: REGULAR RHYTHM - GI/Abdominal Exam GI & Abdominal Exam: Soft. absent: Distended, Tenderness - Extremities Exam Extremities exam: Positive for: normal capillary refill, pedal edema (LLE 3+), pedal pulses present. Negative for: calf tenderness, tenderness Additional comments: LLE: ~8x3cm wound with eschar and bullae, nontender, edema and erythema present - Back Exam Back exam: absent: CVA tenderness (L), CVA tenderness (R) - Neurological Exam Neurological exam: Alert, CN II-XII Intact, Oriented x3 - Psychiatric Exam Psychiatric exam: Normal Affect, Normal Mood - Skin Skin Exam: Dry, Warm Additional comments: LLE: ~8x3cm wound with eschar and bullae, nontender, edema and erythema present Results - Vital Signs Recent Vital Signs: Last Vital Signs Temp 98.1 F 08/15/17 08:38 Pulse 72 08/15/17 12:25 Resp 20 08/15/17 08:38 BP 135/66 08/15/17 12:25 Pulse Ox 98 08/15/17 08:38 - Labs Result Diagrams: 08/15/17 05:45 08/13/17 05:30 Labs: Laboratory Results - last 24 hr 08/14/17 08/14/17 08/14/17 11:05 16:00 16:51 WBC RBC Hgb Hct MCV MCH MCHC RDW Plt Count POC Glucose (mg/dL) 137 H 72 140 H C-Reactive Protein 08/14/17 08/14/17 08/15/17 21:07 22:32 05:45 WBC 9.8 RBC 3.70 L Hgb 11.6 L Hct 34.0 L MCV 91.8 MCH 31.5 H MCHC 34.3 RDW 14.8 H Plt Count 284 POC Glucose (mg/dL) 80 119 H C-Reactive Protein 08/15/17 08/15/17 08/15/17 05:45 06:17 11:19 WBC RBC Hgb Hct MCV MCH MCHC RDW Plt Count POC Glucose (mg/dL) 172 H 97 C-Reactive Protein 80.50 H 08/15/17 08/15/17 12:30 13:28 WBC RBC Hgb Hct MCV MCH MCHC RDW Plt Count POC Glucose (mg/dL) 92 150 H C-Reactive Protein Assessment & Plan - Assessment and Plan (Free Text) Assessment: 62M with PMH that includes DM, HTN, CKD , COPD presents with LLE cellulitis and abscess Plan: -Patient wishes to be treated at outpatient facility -No surgical intervention due to patient's request -IV antibiotics as per ID -Discussed with Dr. Madeleine Lopez PGY1 <Fred Salvador - Last Filed: 08/15/17 16:13> History of Present Illness - History of Present Illness History of Present Illness: Patient was seen and examined at the bedside. Agree with resident's note above. Meds - Medications Medications: Current Medications Acetaminophen (Tylenol 325mg Tab) 650 mg PO Q4 PRN PRN Reason: Pain, Mild (1-3) Albuterol/Ipratropium (Duoneb 3 Mg/0.5 Mg (3 Ml) Ud) 3 ml INH RQ4 PRN PRN Reason: Shortness of Breath Alprazolam (Xanax) 0.5 mg PO HS PRN PRN Reason: Insomnia Stop: 08/18/17 22:00 Last Admin: 08/14/17 18:20 Dose: 0.5 mg Amlodipine Besylate (Norvasc) 2.5 mg PO DAILY [facility] Last Admin: 08/15/17 08:26 Dose: 2.5 mg Aspirin (Ecotrin) 81 mg PO DAILY [facility] Last Admin: 08/15/17 08:26 Dose: 81 mg Calcitriol (Rocaltrol) 0.5 mcg PO DAILY [facility] Last Admin: 08/15/17 08:25 Dose: 0.5 mcg Clonidine HCl (Catapres) 0.2 mg PO TID [facility] Last Admin: 08/15/17 12:25 Dose: 0.2 mg Heparin Sodium (Porcine) (Heparin) 5,000 units SC Q12 [facility] PRN Reason: Protocol Last Admin: 08/15/17 08:32 Dose: Not Given Linezolid (Zyvox 600mg/300ml D5w) 600 mg in 300 mls @ 300 mls/hr IVPB Q12H [facility] PRN Reason: Protocol Last Admin: 08/15/17 12:24 Dose: 300 mls/hr Insulin Detemir (Levemir) 15 units SC Q12 [facility] Last Admin: 08/15/17 08:33 Dose: 15 unit Insulin Human Lispro (Humalog) 20 units SC TIDAC [facility] Last Admin: 08/15/17 12:33 Dose: 20 unit Levothyroxine Sodium (Synthroid) 112 mcg PO DAILY@0630 [facility] Last Admin: 08/15/17 07:04 Dose: 112 mcg Montelukast Sodium (Singulair) 10 mg PO HS [facility] Last Admin: 08/14/17 22:36 Dose: 10 mg Hwnzl-5-Yges Ethyl Esters (Lovaza) 1 gm PO DAILY [facility] Last Admin: 08/15/17 08:26 Dose: 1 gm Pantoprazole Sodium (Protonix Ec Tab) 20 mg PO DAILY [facility] Last Admin: 08/15/17 08:25 Dose: 20 mg Fluticasone/Salmeterol (Advair Diskus 250/50) 1 puff IH BID [facility] Last Admin: 08/15/17 08:24 Dose: 1 puff Sevelamer HCl (Renagel) 800 mg PO TID [facility] Last Admin: 08/15/17 12:24 Dose: 800 mg Torsemide (Demadex) 20 mg PO BID [facility] Last Admin: 08/15/17 08:24 Dose: 20 mg Results - Vital Signs Recent Vital Signs: Last Vital Signs Temp 98.1 F 08/15/17 08:38 Pulse 72 08/15/17 12:25 Resp 20 08/15/17 08:38 BP 135/66 08/15/17 12:25 Pulse Ox 98 08/15/17 08:38 - Labs Result Diagrams: 08/15/17 05:45 08/13/17 05:30 Labs: Laboratory Results - last 24 hr 08/14/17 08/14/17 08/14/17 16:51 21:07 22:32 WBC RBC Hgb Hct MCV MCH MCHC RDW Plt Count POC Glucose (mg/dL) 140 H 80 119 H C-Reactive Protein 08/15/17 08/15/17 08/15/17 05:45 05:45 06:17 WBC 9.8 RBC 3.70 L Hgb 11.6 L Hct 34.0 L MCV 91.8 MCH 31.5 H MCHC 34.3 RDW 14.8 H Plt Count 284 POC Glucose (mg/dL) 172 H C-Reactive Protein 80.50 H 08/15/17 08/15/17 08/15/17 11:19 12:30 13:28 WBC RBC Hgb Hct MCV MCH MCHC RDW Plt Count POC Glucose (mg/dL) 97 92 150 H C-Reactive Protein Assessment & Plan - Assessment and Plan (Free Text) Plan: - No general surgery intervention at present time - General surgery will sign off - Continue care as per medical team - Please re-consult as needed
--- NOTE | 2017-08-15 17:03 | CP.PCM.PN ---
Subjective - Date & Time of Evaluation Date of Evaluation: 08/15/17 - Subjective Subjective: F/U Cellulitis LLE no pain Left leg Objective - Vital Signs/Intake and Output Vital Signs (last 24 hours): Temp Pulse Resp BP Pulse Ox 98.1 F 63 20 129/66 96 08/15/17 16:42 08/15/17 16:42 08/15/17 16:42 08/15/17 16:42 08/15/17 16:42 - Medications Medications: Current Medications Acetaminophen (Tylenol 325mg Tab) 650 mg PO Q4 PRN PRN Reason: Pain, Mild (1-3) Albuterol/Ipratropium (Duoneb 3 Mg/0.5 Mg (3 Ml) Ud) 3 ml INH RQ4 PRN PRN Reason: Shortness of Breath Alprazolam (Xanax) 0.5 mg PO HS PRN PRN Reason: Insomnia Stop: 08/18/17 22:00 Last Admin: 08/14/17 18:20 Dose: 0.5 mg Amlodipine Besylate (Norvasc) 2.5 mg PO DAILY [facility] Last Admin: 08/15/17 08:26 Dose: 2.5 mg Aspirin (Ecotrin) 81 mg PO DAILY [facility] Last Admin: 08/15/17 08:26 Dose: 81 mg Calcitriol (Rocaltrol) 0.5 mcg PO DAILY [facility] Last Admin: 08/15/17 08:25 Dose: 0.5 mcg Clonidine HCl (Catapres) 0.2 mg PO TID [facility] Last Admin: 08/15/17 12:25 Dose: 0.2 mg Heparin Sodium (Porcine) (Heparin) 5,000 units SC Q12 [facility] PRN Reason: Protocol Last Admin: 08/15/17 08:32 Dose: Not Given Linezolid (Zyvox 600mg/300ml D5w) 600 mg in 300 mls @ 300 mls/hr IVPB Q12H [facility] PRN Reason: Protocol Last Admin: 08/15/17 12:24 Dose: 300 mls/hr Insulin Detemir (Levemir) 15 units SC Q12 [facility] Last Admin: 08/15/17 08:33 Dose: 15 unit Insulin Human Lispro (Humalog) 20 units SC TIDAC [facility] Last Admin: 08/15/17 12:33 Dose: 20 unit Levothyroxine Sodium (Synthroid) 112 mcg PO DAILY@0630 [facility] Last Admin: 08/15/17 07:04 Dose: 112 mcg Montelukast Sodium (Singulair) 10 mg PO HS [facility] Last Admin: 08/14/17 22:36 Dose: 10 mg Mpphv-2-Svpq Ethyl Esters (Lovaza) 1 gm PO DAILY [facility] Last Admin: 08/15/17 08:26 Dose: 1 gm Pantoprazole Sodium (Protonix Ec Tab) 20 mg PO DAILY [facility] Last Admin: 08/15/17 08:25 Dose: 20 mg Fluticasone/Salmeterol (Advair Diskus 250/50) 1 puff IH BID [facility] Last Admin: 08/15/17 08:24 Dose: 1 puff Sevelamer HCl (Renagel) 800 mg PO TID [facility] Last Admin: 08/15/17 12:24 Dose: 800 mg Torsemide (Demadex) 20 mg PO BID [facility] Last Admin: 08/15/17 08:24 Dose: 20 mg - Labs Labs: 08/15/17 05:45 08/13/17 05:30 - Constitutional Appears: No Acute Distress - Head Exam Head Exam: NORMAL INSPECTION - Eye Exam Eye Exam: PERRL - ENT Exam ENT Exam: Normal Exam - Neck Exam Neck Exam: Normal Inspection - Respiratory Exam Respiratory Exam: Decreased Breath Sounds (at bases) - Cardiovascular Exam Cardiovascular Exam: REGULAR RHYTHM - GI/Abdominal Exam GI & Abdominal Exam: Soft, Normal Bowel Sounds Additional comments: Obese. - Extremities Exam Additional comments: Left leg ulceration with no tenderness, erythema greatly decreased central necrotic eschar , fluctuation , L foot dried hematoma. - Back Exam Back Exam: tenderness - Neurological Exam Neurological Exam: Alert, CN II-XII Intact, Oriented x3 Additional comments: No focal motor/sensory deficit. - Psychiatric Exam Psychiatric exam: Anxious - Skin Skin Exam: Warm Assessment and Plan (1) Cellulitis and abscess of leg Assessment & Plan: Left leg U-S Cellulitis, abcess , Patient was examined at bedside by Podiatric and market research consultant , debridement of Left leg area of ulcer - abcess was ofered to Patient . Patient requesting 2nd opinion for outside Podiatric peoplesoft financials consultant, continue Zyvox IV Status: Acute (2) CKD (chronic kidney disease) Status: Acute (3) Diabetes mellitus Status: Acute (4) Morbid obesity Status: Acute (5) ARTUR (obstructive sleep apnea) Status: Acute (6) Hypertension Status: Acute (7) COPD (chronic obstructive pulmonary disease) Status: Acute (8) Dyslipidemia Status: Acute (9) Hypothyroidism Status: Acute
[2017-08-16] MEDS: Levothyroxine 112 MCG TAB PO SCH (06:01)
[2017-08-16] MEDS: Fluticasone-Salmeterol 250-50mcg Diskus IH SCH (08:03)
[2017-08-16] MEDS: Insulin Lispro (humaLOG) 100 Units/ml Inj SC SCH ×2 (08:03→12:14)
[2017-08-16] MEDS: Omega-3-Acid Ethyl Esters 1 GM Cap PO SCH (08:06)
[2017-08-16] MEDS: Pantoprazole 20 mg EC Tab PO SCH (08:07)
[2017-08-16 08:09] VITALS: PULSE 77
--- NOTE | 2017-08-16 08:26 | CP.PCM.PN ---
Subjective - Date & Time of Evaluation Date of Evaluation: 08/16/17 Time of Evaluation: 08:26 Objective - Vital Signs/Intake and Output Vital Signs (last 24 hours): Temp Pulse Resp BP Pulse Ox 98.4 F 77 20 140/73 96 08/15/17 20:06 08/16/17 08:09 08/15/17 20:06 08/16/17 08:09 08/15/17 20:06 - Medications Medications: Current Medications Acetaminophen (Tylenol 325mg Tab) 650 mg PO Q4 PRN PRN Reason: Pain, Mild (1-3) Albuterol/Ipratropium (Duoneb 3 Mg/0.5 Mg (3 Ml) Ud) 3 ml INH RQ4 PRN PRN Reason: Shortness of Breath Alprazolam (Xanax) 0.5 mg PO HS PRN PRN Reason: Insomnia Stop: 08/18/17 22:00 Last Admin: 08/14/17 18:20 Dose: 0.5 mg Amlodipine Besylate (Norvasc) 2.5 mg PO DAILY [facility] Last Admin: 08/16/17 08:08 Dose: 2.5 mg Aspirin (Ecotrin) 81 mg PO DAILY [facility] Last Admin: 08/16/17 08:06 Dose: 81 mg Calcitriol (Rocaltrol) 0.5 mcg PO DAILY [facility] Last Admin: 08/16/17 08:06 Dose: 0.5 mcg Clonidine HCl (Catapres) 0.2 mg PO TID [facility] Last Admin: 08/16/17 08:09 Dose: 0.2 mg Heparin Sodium (Porcine) (Heparin) 5,000 units SC Q12 [facility] PRN Reason: Protocol Last Admin: 08/16/17 08:06 Dose: Not Given Linezolid (Zyvox 600mg/300ml D5w) 600 mg in 300 mls @ 300 mls/hr IVPB Q12H [facility] PRN Reason: Protocol Last Admin: 08/15/17 23:43 Dose: 300 mls/hr Insulin Detemir (Levemir) 15 units SC Q12 [facility] Last Admin: 08/15/17 21:34 Dose: 15 unit Insulin Human Lispro (Humalog) 20 units SC TIDAC [facility] Last Admin: 08/16/17 08:03 Dose: 20 unit Levothyroxine Sodium (Synthroid) 112 mcg PO DAILY@0630 [facility] Last Admin: 08/16/17 06:01 Dose: 112 mcg Montelukast Sodium (Singulair) 10 mg PO HS [facility] Last Admin: 08/15/17 21:33 Dose: 10 mg [id number] Ethyl Esters (Lovaza) 1 gm PO DAILY [facility] Last Admin: 08/16/17 08:06 Dose: 1 gm Pantoprazole Sodium (Protonix Ec Tab) 20 mg PO DAILY [facility] Last Admin: 08/16/17 08:07 Dose: 20 mg Fluticasone/Salmeterol (Advair Diskus 250/50) 1 puff IH BID [facility] Last Admin: 08/16/17 08:03 Dose: 1 puff Sevelamer HCl (Renagel) 800 mg PO TID [facility] Last Admin: 08/16/17 08:06 Dose: 800 mg Torsemide (Demadex) 20 mg PO BID [facility] Last Admin: 08/16/17 08:06 Dose: 20 mg - Labs Labs: 08/15/17 05:45 08/13/17 05:30
[2017-08-16] MEDS: Insulin Detemir 100 Units/ml Inj SC SCH (09:00)
[2017-08-16 10:13] VITALS: TEMP 97.9; O2SAT 94
[2017-08-16] MEDS: Linezolid 600 mg in D5W 300 ml 600 MG/300 ML BAG IVPB SCH (12:16)
[2017-08-16 13:12] VITALS: BP 132/78
[2017-08-16] MEDS ORDERED: Povidone Iodine Topical 10% Sol ONE (13:33)
--- NOTE | 2017-08-16 13:40 | CP.PCM.PN ---
Subjective - Date & Time of Evaluation Date of Evaluation: 08/17/17 Time of Evaluation: 13:40 - Subjective Subjective: no pain L Leg Objective - Vital Signs/Intake and Output Vital Signs (last 24 hours): Temp Pulse Resp BP Pulse Ox 97.9 F 77 20 132/78 94 L 08/16/17 10:12 08/16/17 10:12 08/16/17 10:12 08/16/17 13:11 08/16/17 10:12 - Medications Medications: Current Medications Acetaminophen (Tylenol 325mg Tab) 650 mg PO Q4 PRN PRN Reason: Pain, Mild (1-3) Albuterol/Ipratropium (Duoneb 3 Mg/0.5 Mg (3 Ml) Ud) 3 ml INH RQ4 PRN PRN Reason: Shortness of Breath Alprazolam (Xanax) 0.5 mg PO HS PRN PRN Reason: Insomnia Stop: 08/18/17 22:00 Last Admin: 08/14/17 18:20 Dose: 0.5 mg Amlodipine Besylate (Norvasc) 2.5 mg PO DAILY [facility] Last Admin: 08/16/17 08:08 Dose: 2.5 mg Aspirin (Ecotrin) 81 mg PO DAILY [facility] Last Admin: 08/16/17 08:06 Dose: 81 mg Calcitriol (Rocaltrol) 0.5 mcg PO DAILY [facility] Last Admin: 08/16/17 08:06 Dose: 0.5 mcg Clonidine HCl (Catapres) 0.2 mg PO TID [facility] Last Admin: 08/16/17 13:11 Dose: 0.2 mg Heparin Sodium (Porcine) (Heparin) 5,000 units SC Q12 [facility] PRN Reason: Protocol Last Admin: 08/16/17 08:06 Dose: Not Given Linezolid (Zyvox 600mg/300ml D5w) 600 mg in 300 mls @ 300 mls/hr IVPB Q12H [facility] PRN Reason: Protocol Last Admin: 08/16/17 12:16 Dose: 300 mls/hr Insulin Detemir (Levemir) 15 units SC Q12 [facility] Last Admin: 08/16/17 09:00 Dose: 15 unit Insulin Human Lispro (Humalog) 20 units SC TIDAC [facility] Last Admin: 08/16/17 12:14 Dose: 20 unit Levothyroxine Sodium (Synthroid) 112 mcg PO DAILY@0630 [facility] Last Admin: 08/16/17 06:01 Dose: 112 mcg Montelukast Sodium (Singulair) 10 mg PO HS [facility] Last Admin: 08/15/17 21:33 Dose: 10 mg [id number]-[id number] Ethyl Esters (Lovaza) 1 gm PO DAILY [facility] Last Admin: 08/16/17 08:06 Dose: 1 gm Pantoprazole Sodium (Protonix Ec Tab) 20 mg PO DAILY [facility] Last Admin: 08/16/17 08:07 Dose: 20 mg Fluticasone/Salmeterol (Advair Diskus 250/50) 1 puff IH BID [facility] Last Admin: 08/16/17 08:03 Dose: 1 puff Sevelamer HCl (Renagel) 800 mg PO TID [facility] Last Admin: 08/16/17 13:11 Dose: 800 mg Torsemide (Demadex) 20 mg PO BID [facility] Last Admin: 08/16/17 08:06 Dose: 20 mg - Labs Labs: 08/15/17 05:45 08/13/17 05:30 - Constitutional Appears: No Acute Distress - Head Exam Head Exam: NORMAL INSPECTION - Eye Exam Eye Exam: PERRL - ENT Exam ENT Exam: Normal Exam - Neck Exam Neck Exam: Normal Inspection - Respiratory Exam Respiratory Exam: Decreased Breath Sounds (at bases) - Cardiovascular Exam Cardiovascular Exam: REGULAR RHYTHM - GI/Abdominal Exam GI & Abdominal Exam: Soft, Normal Bowel Sounds Additional comments: obese - Extremities Exam Additional comments: Left leg dressing in place , no tenderness - Back Exam Back Exam: tenderness (mild) - Neurological Exam Neurological Exam: Alert, Oriented x3 Additional comments: no focal motor/sensory defict - Psychiatric Exam Psychiatric exam: Normal Affect - Skin Skin Exam: Warm Assessment and Plan (1) Cellulitis and abscess of left leg Status: Acute (2) CKD (chronic kidney disease) Status: Acute (3) Diabetes mellitus Status: Acute (4) Morbid obesity Status: Acute (5) ARTUR (obstructive sleep apnea) Status: Acute (6) Hypertension Status: Acute (7) COPD (chronic obstructive pulmonary disease) Status: Acute (8) Dyslipidemia Status: Acute (9) Hypothyroidism Status: Acute - Assessment and Plan (Free Text) Plan: Surgical consult and Podiatric f/u yesterday appreciated , options were discussed with him at [facility] . Patient wants to sign AMA , discussed with him , but He want to have follow up outside in Podiatric office. Patient signed AMA
--- NOTE | 2017-08-17 12:59 | CP.PCM.DIS ---
Provider - Provider Date of Admission: 08/11/17 21:15 Attending physician: Shakir Crowder MD Consults: Podiatry. Time Spent in preparation of Discharge (in minutes): 25 Diagnosis - Discharge Diagnosis (1) Cellulitis and abscess of left leg Status: Acute (2) CKD (chronic kidney disease) Status: Acute (3) Diabetes mellitus Status: Acute (4) Morbid obesity Status: Acute (5) ARTUR (obstructive sleep apnea) Status: Acute (6) Hypertension Status: Acute (7) COPD (chronic obstructive pulmonary disease) Status: Acute (8) Dyslipidemia Status: Acute (9) Hypothyroidism Status: Acute Hospital Course - Lab Results Lab Results: Most Recent Lab Values WBC 9.8 K/uL (4.8-10.8) 08/15/17 05:45 RBC 3.70 Mil/uL (4.40-5.90) L 08/15/17 05:45 Hgb 11.6 g/dL (12.0-18.0) L 08/15/17 05:45 Hct 34.0 % (35.0-51.0) L 08/15/17 05:45 MCV 91.8 fl (80.0-94.0) 08/15/17 05:45 MCH 31.5 pg (27.0-31.0) H 08/15/17 05:45 MCHC 34.3 g/dL (33.0-37.0) 08/15/17 05:45 RDW 14.8 % (11.5-14.5) H 08/15/17 05:45 Plt Count 284 K/uL (130-400) 08/15/17 05:45 MPV 8.3 fl (7.2-11.7) 08/12/17 06:06 Neut % (Auto) 73.8 % (50.0-75.0) 08/12/17 06:06 Lymph % (Auto) 14.2 % (20.0-40.0) L 08/12/17 06:06 Collin % (Auto) 7.8 % (0.0-10.0) 08/12/17 06:06 Eos % (Auto) 3.0 % (0.0-4.0) 08/12/17 06:06 Baso % (Auto) 1.2 % (0.0-2.0) 08/12/17 06:06 Neut # (Auto) 7.3 K/uL (1.8-7.0) H 08/12/17 06:06 Lymph # (Auto) 1.4 K/uL (1.0-4.3) 08/12/17 06:06 Collin # (Auto) 0.8 K/uL (0.0-0.8) 08/12/17 06:06 Eos # (Auto) 0.3 K/uL (0.0-0.7) 08/12/17 06:06 Baso # (Auto) 0.1 K/uL (0.0-0.2) 08/12/17 06:06 Sodium 141 mmol/l (132-148) 08/13/17 05:30 Potassium 3.8 MMOL/L (3.6-5.0) 08/13/17 05:30 Chloride 101 mmol/L (98-107) 08/13/17 05:30 Carbon Dioxide 30 mmol/L (22-30) 08/13/17 05:30 Anion Gap 14 (10-20) 08/13/17 05:30 BUN 50 mg/dl (9-20) H 08/13/17 05:30 Creatinine 3.7 mg/dl (0.8-1.5) H 08/13/17 05:30 Est GFR ( Amer) 20 08/13/17 05:30 Est GFR (Non-Af Amer) 17 08/13/17 05:30 POC Glucose (mg/dL) 186 mg/dL (65-110) H 08/16/17 11:23 Random Glucose 146 mg/dL (75-110) H 08/13/17 05:30 Hemoglobin A1c 7.0 % (4.2-6.5) H 08/12/17 06:06 Lactic Acid 0.9 MMOL/L (0.7-2.1) 08/12/17 06:06 Calcium 9.1 mg/dL (8.4-10.2) 08/13/17 05:30 Total Bilirubin 0.5 mg/dl (0.2-1.3) 08/13/17 05:30 AST 67 U/L (17-59) H D 08/13/17 05:30 ALT 57 U/L (21-72) 08/13/17 05:30 Alkaline Phosphatase 46 U/L (38-126) 08/13/17 05:30 CK-MB (Mass) 6.86 ng/mL (0.0-3.38) H 08/12/17 06:06 C-Reactive Protein 80.50 mg/L (0.0-9.9) H 08/15/17 05:45 Total Protein 6.9 G/DL (6.3-8.2) 08/13/17 05:30 Albumin 3.4 g/dL (3.5-5.0) L 08/13/17 05:30 Globulin 3.6 gm/dL (2.2-3.9) 08/13/17 05:30 Albumin/Globulin Ratio 0.9 (1.0-2.1) L 08/13/17 05:30 - Date & Time of H&P Date of H&P: 08/12/17 Discharge Exam - Head Exam Head Exam: NORMAL INSPECTION Discharge Plan - Follow Up Plan Condition: GOOD Disposition: HOME/ ROUTINE Patient education suggested?: Yes
== END 2017-08-16 15:00 | disposition home or self-care (01) | DRG 638 ==
LOC: H.TCU 21:15
PROVIDERS: ADMIT Internal Medicine Pulmonary Disease; ATTEND Internal Medicine Pulmonary Disease
PROC: 3E03329 Introduction of Other Anti-infective into Peripheral Vein, Percutaneous Approach (ICD-10-PCS; principal; 2017-08-11)
PROC: 5A09557 Assistance with Respiratory Ventilation, Greater than 96 Consecutive Hours, Continuous Positive Airway Pressure (ICD-10-PCS; 2017-08-11)
DX: E11.622 Type 2 diabetes mellitus with other skin ulcer (principal); Z68.42 Body mass index [BMI] 45.0-49.9, adult; L02.416 Cutaneous abscess of left lower limb; L03.116 Cellulitis of left lower limb; E11.22 Type 2 diabetes mellitus with diabetic chronic kidney disease; E66.01 Morbid (severe) obesity due to excess calories; E78.00 Pure hypercholesterolemia, unspecified; E78.5 Hyperlipidemia, unspecified; G47.33 Obstructive sleep apnea (adult) (pediatric); I12.9 Hypertensive chronic kidney disease with stage 1 through stage 4 chronic kidney disease, or unspecified chronic kidney disease; J44.9 Chronic obstructive pulmonary disease, unspecified; N17.9 Acute kidney failure, unspecified; N18.9 Chronic kidney disease, unspecified; Z86.73 Personal history of transient ischemic attack (TIA), and cerebral infarction without residual deficits; E05.90 Thyrotoxicosis, unspecified without thyrotoxic crisis or storm; F41.9 Anxiety disorder, unspecified; E03.9 Hypothyroidism, unspecified; E11.40 Type 2 diabetes mellitus with diabetic neuropathy, unspecified; Z79.84 Long term (current) use of oral hypoglycemic drugs; Z79.4 Long term (current) use of insulin